=== PATIENT | female | born 1945 | race Caucasian/White ===

== ENCOUNTER 2023-11-03 11:40 | Emergency (ER) | payer OTHER ==
--- OUTSIDE RECORDS SUMMARY | 2023-11-03 11:45 | XMS REPORT | Continuity of Care Document ---
Author Name Unknown Address [address] [facility] [address] [place] [address] [facility] Address [address] [facility] 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 Name Role Phone JERMAN LEUNG Primary Care Physician UnavailKALI Joel Attending Clinician UnavailKALI Joel Attending Clinician UnavailKali Joel DO Attending Clinician [phone] Therapist, Adc Respiratory Attending Clinician U navailable Doctor Unassigned, [place] Attending Clinician U navailable RADIOLOGY Attending Clinician Unavailable Radiology Attending Clinician Unavailable Rut Jimenez Cardiology Attending Clinician Unavailable Jj Patel Attending Clinician Unavailable KALI OMRGAN Admitting Clinician Unavailable JERMAN LEUNG Admitting Clinician Unavailable Jerman Leung Admitting Clinician Unavailable Jose Mark Admitting Clinician Unavailable Jj Patel Admitting Clinician Unavailable Payers Payer Name Policy Type Policy Number Effective Date Expirati on Date Source [facility] DUAL COMP HMO D SNP [id number] 2022 00:00:00 [employer] [place] [id number] 2023 00:00:00 Allergies, Adverse Reactions, Alerts Allergy Name Allergy Type Status Severity Reaction(s) Onset Date Inactive Date Treating Clinician Comments Source IODINE DRUG INGREDI Active Swelling 06-28 00:00: 00 [facility] Iodine Propensi ty to adverse reaction s Active Swelling 06-28 00:00: 00 [facility] iodine DA Active SV SWELLING 2022-04 00:00: 00 [facility] iodine DA Active SV SWELLING 2021-04 00:00: 00 [facility] NO KNOWN ALLERGIE S Drug Class Active [facility] Social History Social Habit Start Date Stop Date Quantity Comments [facility] at 1945 00:[facility]00 1945 00:00:00 [facility] Smoking Status Start Date Stop Date Source Tobacco smoking consumption unknown [facility] Medications Ordered Medication Name Filled Medication Name Start Date Stop Date Current Medication? Ordering Clinician Indication Dosage Frequency Signature (SIG) Comments Components Source albuterol 90 mcg/actuati on inhaler 10-12 08:57: 14 Yes 2{puff} Inhale 2 Puffs every 6 (six) hours as needed for Wheezing or Shortness of Breath. [facility] diphenhydrA MINE (BENADRYL ALLERGY) 25 mg tablet 10-12 08:57: 14 Yes 25mg Take 1 tablet by mouth every 4 (four) hours as needed for Allergies. [facility] fluticasone propionate (ALLERGY RELIEF, FLUTICASONE ,) 50 mcg/actuati on nasal spray 10-12 08:57: 14 Yes Use in each nostril daily. [facility] tiotropium- olodateroL (STIOLTO RESPIMAT) 2.5-2.5 mcg/actuati on Mist 10-12 00:00: 00 Yes [id number] 2{puff} Inhale 2 Puffs in the morning. [facility] albuterol 90 mcg/actuati on inhaler 06-28 09:33: 15 Yes 2{puff} Inhale 2 Puffs every 6 (six) hours as needed for Wheezing or Shortness of Breath. [facility] diphenhydrA MINE (BENADRYL ALLERGY) 25 mg tablet 06-28 09:33: 15 Yes 25mg Take 1 tablet by mouth every 4 (four) hours as needed for Allergies. [facility] fluticasone propionate (ALLERGY RELIEF, FLUTICASONE ,) 50 mcg/actuati on nasal spray 06-28 09:33: 15 Yes Use in each nostril daily. [facility] HYDROcodone -acetaminop hen 10-325 mg tablet 06-24 00:00: 00 Yes TAKE 1 TABLET BY MOUTH EVERY 6 HOURS NEEDED FOR 28 DAYS [facility] gabapentin 800 mg tablet 06-18 00:00: 00 Yes 800mg Take 1 tablet by mouth in the morning and 1 tablet at noon and 1 tablet in the evening. [facility] clopidogreL 75 mg tablet 06-03 00:00: 00 Yes [facility] rosuvastati n 10 mg tablet 06-03 00:00: 00 Yes [facility] nitroglycer in 0.4 mg sublingual tablet 06-02 00:00: 00 Yes DIRECTED SUBLINGUAL ONCE A DAY 30 DAYS [facility] montelukast 10 mg tablet 06-01 00:00: 00 Yes [facility] WIXELA INHUB 500-50 mcg/dose inhalation disk 05-25 00:00: 00 Yes [facility] pantoprazol e 40 mg EC tablet 05-25 00:00: 00 Yes [facility] LINZESS 145 mcg capsule 05-25 00:00: 00 Yes [facility] SPIRIVA RESPIMAT 2.5 mcg/actuati on Mist 2022-04 00:00: 00 Yes [facility] Vital Signs Vital Name Observation Time Observation Value Comments Jeff acostakade Systolic blood pressure 2023-10-13 14:36:00 143 mm[Hg] [facility] Diastolic blood pressure 2023-10-13 14:36:00 63 mm[Hg] [facility] Heart rate 2023-10-13 14:36:00 94 /min Unive [facility] Oxygen saturation in Arterial blood by Pulse oximetry 2023-10-13 14:36:00 100 /min [facility] Respiratory rate 2023-10-13 14:33:00 18 /min [facility] Body height 2023-10-13 14:33:00 167.6 cm [facility] Body weight 2023-10-13 14:33:00 55.792 kg [facility] BMI 2023-10-13 14:33:00 19.85 kg/m2 [facility] Systolic blood pressure 2023-06-29 15:38:00 135 mm[Hg] [facility] Diastolic blood pressure 2023-06-29 15:38:00 78 mm[Hg] [facility] Heart rate 2023-06-29 15:38:00 84 /min Unive [facility] Body height 2023-06-29 15:38:00 167.6 cm [facility] Body weight 2023-06-29 15:38:00 62.642 kg [facility] BMI 2023-06-29 15:38:00 22.29 kg/m2 [facility] Oxygen saturation in Arterial blood by Pulse oximetry 2023-06-29 15:38:00 93 /min [facility] Procedures Procedure Date / Time Performed Performing Clinicia n Source EXTERNAL PROVIDER - ADC REFERRAL 2023-06-01 06:01:00 Doctor Unassigned, [place] [facility] Encounters Start Date/Time End Date/Time Encounter Type Admission Type Attending Clinicians Care Facility Care Department Encounter ID Source 2024-01-12 10:30:00 2024-01-12 10:30:00 Outpatient R KALI MORGAN SHIWAN [facility] [id number] [facility] 2023-10-13 09:30:00 2023-10-13 10:00:00 Office Visit Kali Morgan [facility] [id number] 350.1.13.10 [id number] [id number] [facility] 2023-10-13 09:30:00 2023-10-13 09:30:00 Outpatient R KALI MORGAN SHINHGanesh [facility] [id number] [facility] 2023-09-29 09:30:00 2023-09-29 09:30:00 Outpatient R KALI MORGAN SHINHGanesh [facility] [id number] [facility] 2023-08-25 00:00:00 2023-08-25 00:00:00 Telephone Kali Morgan [facility] 1..840.114 350.1.13.10 4.2.7.2.686 [id number] [facility] 2023-08-13 09:30:00 2023-08-13 11:00:00 Associate Agent Insurance Sales Visit Therapist, Adc [facility] 1..840.114 350.1.13.10 4.2.7.2.686 [id number] [facility] 2023-08-13 09:30:00 2023-08-13 09:30:00 Outpatient R KALI MORGAN SHINHGanesh [facility] [id number] [facility] 2023-08-03 08:27:47 2023-08-03 23:59:00 Outpatient R KALI MORGAN SHIWAN [facility] [id number] [facility] 2023-08-03 08:27:47 2023-08-03 23:59:00 Hospital Encounter Kali Morgan [facility] 1..840.114 350.1.13.10 4.2.7.2.686 [id number] [facility] 2023-06-29 09:30:00 2023-06-29 09:59:31 [facility] [id number] [facility] 2023-06-29 09:30:00 2023-06-29 09:59:31 Office Visit Lalo [facility] 1.2.840.114 350.1.13.10 4.2.7.2.686 [id number] [facility] 2023-06-01 00:00:00 2023-06-01 00:00:00 Orders Only Doctor Unassigned, [place] [facility] 1.2.840.114 350.1.13.10 4.2.7.2.686 [id number] [facility] 2023-05-04 09:42:00 2023-05-04 23:59:00 Outpatient R RADIOLOGY [facility] [id number] [facility] 2023-05-04 09:42:00 2023-05-04 23:59:00 Hospital Encounter Radiology [facility] 1.2.840.114 350.1.13.10 4.2.7.2.686 [id number] [facility] 2023-04-28 00:00:00 2023-04-28 00:00:00 Outpatient R RADIOLOGY [facility] [id number] [facility] 2023-04-02 08:57:52 2023-04-02 23:59:00 Hospital Encounter Radiology [facility] 1.2.840.114 350.1.13.10 4.2.7.2.686 [id number] [facility] 2023-04-02 00:00:00 2023-04-02 23:59:00 Outpatient R RADIOLOGY [facility] [id number] [facility] 2023-02-14 05:40:00 2023-02-14 05:40:00 Outpatient Rut Roberto [facility] [id number] [facility] 2022-06-21 06:43:00 2022-06-22 14:24:00 Inpatient Rut Roberto [facility] [id number] [facility] 2022-02-15 06:09:00 2022-02-16 14:00:00 Inpatient Jj Sheehan [facility] [id number] [facility] Results Test Description Test Time Test Comments Results Result Co mments Source PROTHROMBIN [id number] 06:50:00* Test Item Value Reference Range Interpretation Comme nts PT PATIENT (test code = PTP) 9.9 SECONDS 9.3-12.9 N INTERNATIONAL NORMAL RATIO (test code = INR) 0.89 INR Unit 0.8-1.2 N TARGET INR BY INDICATION Indication INR1. Prophylaxis of venous thrombosis 2.0 - 3.0 (orthopedic surgery), Prophylaxis of venous thrombosis (other than high-risk surgery), Treatment of Deep Vein Thrombosis/Pulmonary Embolism, Prevention of systemic embolism - Tissue heart valves, Acute Myocardial Infarction (to prevent systemic embolism), Valvular heart disease, Acute Myocardial Infarction (to prevent systemic embolism), Valvular heart disease, Atrial Fibrillation, Bileaflet mechanical valve in aortic position.2. Mechanical prosthetic valves (high risk), 2.5 - 3.5 Presence of Lupus Anticoagulant or Antiphospholipid Antibodies, Prevention of systemic embolism - Acute Myocardial Infarction (to prevent recurrent infarct). THROMBOPLASTIN TIME [id number] 06:50:00* Test Item Value Reference Range Interpretation Comme nts THROMBOPLASTIN TIME PARTIAL (test code = PTT) 34.7 SECONDS 26-35 N COMPREHENSIVE METABOLIC [id number] 06:48:00* Test Item Value Reference Range Interpretation Comme nts SODIUM (test code = NA) 141 mmol/L 134-147 N POTASSIUM (test code = K) 3.9 mmol/L 3.4-5.0 N CHLORIDE (test code = CL) 107 mmol/L 100-108 N CARBON DIOXIDE (test code = CO2) 34 mmol/L 21-32 H ANION GAP (test code = GAP) 0.0 GAP calc 4.0-15.0 L GLUCOSE (test code = GLU) 113 MG/DL 70-110 H BLOOD UREA NITROGEN (test code = BUN) 26 MG/DL 7-18 H GLOMERULAR FILTRATION RATE (test code = GFR) 58 estGFR >60 L The Glomerular Filtration Rate is a calculated parameterbased on serum Creatinine, patient age and sex. GFR valuesless than 60 mL/min/1.73 square meters are indicative ofChronic Kidney Disease. Values less than 15 mL/min/1.73square meters indicate Kidney failure. The calculation forGFR is based on the CKD-EPI (2020) calculation. This formulais race indifferent and is the recommended formula for GFRby the National Kidney Foundation for Adults.The GFR will not calculate if the sex is unknown or if thepatient's age is <18 years. CREATININE (test code = CREAT) 1.0 MG/DL 0.6-1.0 N TOTAL PROTEIN (test code = PROT) 7.5 G/DL 6.4-8.2 N ALBUMIN (test code = ALB) 3.8 G/DL 3.4-5.0 N GLOBULIN (test code = GLOB) 3.7 GM/dL ALBUMIN/GLOBULIN RATIO (test code = A/G) 1.0 RATIO 1.2-2.2 L CALCIUM (test code = CA) 9.5 MG/DL 8.5-10.1 N BILIRUBIN TOTAL (test code = BILT) 0.50 MG/DL 0.2-1.2 N SGOT/AST (test code = AST) 12 Unit/L 15-37 L SGPT/ALT (test code = ALT) 16 Unit/L 12-78 N ALKALINE PHOSPHATASE TOTAL (test code = ALKP) 59 Unit/L 45-117 N LIPID PROFILE (CORONARY RISK)2023-02-14 06:48:00* Test Item Value Reference Range Interpretation Comme nts TRIGLYCERIDES (test code = TRIG) 140 MG/DL 0-150 N CHOLESTEROL (test code = CHOL) 129 MG/DL 133-200 L CHOLESTEROL/HDL RATIO (test code = CHOLHDL) 2.30 RATIO See_Comment RISK ASSOCIATED WITH CHOL/HDL RATIOS: RISK MALE FEMALE1/2 AVERAGE 3.43 3.27AVERAGE 4.97 4.442X AVERAGE 9.55 7.053X AVERAGE 23.39 11.04 NOTE THAT THE REFERENCE VALUE IS RELATED TO RISK LEVELS ASRECOMMENDED BY THE NATIONAL HEART, L[facility]G, AND BLOOD INSTITUTE. [Automated message] The system which generated this result transmitted reference range: 0-. The reference range was not used to interpret this result as normal/abnormal. HDL CHOLESTEROL (test code = HDL) 56 MG/DL 40-59 N NON-HDL CHOLESTEROL (test code = NHDL) 73 mg/dL <130 LIPOPROTEIN LDL (test code = LDL) 49 MG/DL 0-129 N <100 [id number] 0 - 129 NEAR OPTIMAL/ABOVE [id number] - 159 [id number] - 189 HIGH>OR= 190 VERY HIGHNOTE THAT GUIDELINES ARE PROVIDED BY NATIONAL CHOLESTEROLEDUCATION PROGRAM ADULT TREATMENT PANEL III LDL/HDL (test code = LDL/HDL) 0.87 Ratio See_Comment L [Automated messa ge] The system which generated this result transmitted reference range: 1.48-3.22 Avg. The reference range was not used to interpret this result as normal/abnormal. [id number] 06:48:00* Test Item Value Reference Range Interpretation Comme nts MAGNESIUM (test code = MAG) 2.2 MG/DL 1.8-2.4 N CBC W/AUTO [id number] 06:31:00* Test Item Value Reference Range Interpretation Comme nts WHITE BLOOD CELL (test code = WBC) 6.5 K/mm3 3.5-11.0 N RED BLOOD CELL (test code = RBC) 5.01 M/mm3 4.70-6.10 N HEMOGLOBIN (test code = HGB) 15.8 G/DL 10.4-14.9 H HEMATOCRIT (test code = HCT) 49.1 % 31.5-44.1 H MEAN CELL VOLUME (test code = MCV) 98.0 Fl 84.5-98.6 N MEAN CELL HGB (test code = MCH) 31.5 pg 27.0-34.2 N MEAN CELL HGB CONCETRATION (test code = MCHC) 32.2 G/DL 31.5-34.0 N RED CELL DISTRIBUTION WIDTH (test code = RDW) 14.1 SD 11.5-14.5 N PLATELET COUNT (test code = PLT) 209 K/mm3 150-450 N MEAN PLATELET VOLUME (test c ode = MPV) 10.10 fL 7.0-10.5 N NEUTROPHIL % (test code = NT%) 58.2 % 40-76 N IMMATURE GRANULOCYTE % (test code = IG%) 0.3 % 0.0-5.0 N LYMPHOCYTE % (test code = LY%) 28.2 % 20.5-51.1 N MONOCYTE % (test code = MO%) 10.2 % 1.7-9.3 H EOSINOPHIL % (test code = EO%) 2.0 % 0.0-6.0 N BASOPHIL % (test code = BA%) 1.1 % 0.0-2.0 N NUCLEATED RBC % (test code = NRBC%) 0.0 /100WBC% 0.0-1.0 N NEUTROPHIL # (test code = NT#) 3.8 K/mm3 1.8-7.6 N IMMATURE GRANULOCYTE # (test code = IG#) 0.02 x10 3/uL 0.00-0.03 N LYMPHOCYTE # (test code = LY#) 1.8 K/mm3 0.6-3.2 N MONOCYTE # (test code = MO#) 0.7 K/mm3 0.3-1.1 N EOSINOPHIL # (test code = EO#) 0.1 K/mm3 0.0-0.4 N BASOPHIL # (test code = BA#) 0.1 K/mm3 0.0-0.1 N NUCLEATED RBC # (test code = NRBC#) 0.0 K/mm3 0.0-0.1 N MANUAL DIFF REQUIRED (test c ode = MDIFF) NO DIFF/SCN CRITERIA BASIC METABOLIC [id number] 05:02:00* Test Item Value Reference Range Interpretation Comme nts SODIUM (test code = NA) 141 mmol/L 134-147 N POTASSIUM (test code = K) 4.4 mmol/L 3.4-5.0 N CHLORIDE (test code = CL) 110 mmol/L 100-108 H CARBON DIOXIDE (test code = CO2) 28 mmol/L 21-32 N ANION GAP (test code = GAP) 3.0 GAP calc 4.0-15.0 L GLUCOSE (test code = GLU) 133 MG/DL 70-110 H BLOOD UREA NITROGEN (test code = BUN) 32 MG/DL 7-18 H GLOMERULAR FILTRATION RATE (test code = GFR) >=60 max estimate estGFR >60 The Glomerular Filtration Rate is a calculated parameterbased on serum Creatinine, patient age and sex. GFR valuesless than 60 mL/min/1.73 square meters are indicative ofChronic Kidney Disease. Values less than 15 mL/min/1.73square meters indicate Kidney failure. The calculation forGFR is based on the CKD-EPI (202) calculation. This formulais race indifferent and is the recommended formula for GFRby the National Kidney Foundation for Adults.The GFR will not calculate if the sex is unknown or if thepatient's age is <18 years. CREATININE (test code = CREAT) 0.8 MG/DL 0.6-1.0 N CALCIUM (test code = CA) 8.8 MG/DL 8.5-10.1 N CBC W/AUTO [id number] 04:52:00* Test Item Value Reference Range Interpretation Comme nts WHITE BLOOD CELL (test code = WBC) 14.4 K/mm3 3.5-11.0 H RED BLOOD CELL (test code = RBC) 4.28 M/mm3 4.70-6.10 L HEMOGLOBIN (test code = HGB) 13.3 G/DL 10.4-14.9 N HEMATOCRIT (test code = HCT) 40.5 % 31.5-44.1 N MEAN CELL VOLUME (test code = MCV) 94.6 Fl 84.5-98.6 N MEAN CELL HGB (test code = MCH) 31.1 pg 27.0-34.2 N MEAN CELL HGB CONCETRATION (test code = MCHC) 32.8 G/DL 31.5-34.0 N RED CELL DISTRIBUTION WIDTH (test code = RDW) 13.3 SD 11.5-14.5 N PLATELET COUNT (test code = PLT) 196 K/mm3 150-450 N MEAN PLATELET VOLUME (test c ode = MPV) 9.80 fL 7.0-10.5 N NEUTROPHIL % (test code = NT%) 83.6 % 40-76 H IMMATURE GRANULOCYTE % (test code = IG%) 0.4 % 0.0-5.0 N LYMPHOCYTE % (test code = LY%) 9.1 % 20.5-51.1 L MONOCYTE % (test code = MO%) 6.8 % 1.7-9.3 N EOSINOPHIL % (test code = EO%) 0.0 % 0.0-6.0 N BASOPHIL % (test code = BA%) 0.1 % 0.0-2.0 N NUCLEATED RBC % (test code = NRBC%) 0.0 /100WBC% 0.0-1.0 N NEUTROPHIL # (test code = NT#) 12.0 K/mm3 1.8-7.6 H IMMATURE GRANULOCYTE # (test code = IG#) 0.06 x10 3/uL 0.00-0.03 H LYMPHOCYTE # (test code = LY#) 1.3 K/mm3 0.6-3.2 N MONOCYTE # (test code = MO#) 1.0 K/mm3 0.3-1.1 N EOSINOPHIL # (test code = EO#) 0.0 K/mm3 0.0-0.4 N BASOPHIL # (test code = BA#) 0.0 K/mm3 0.0-0.1 N NUCLEATED RBC # (test code = NRBC#) 0.0 K/mm3 0.0-0.1 N MANUAL DIFF REQUIRED (test c ode = MDIFF) NO DIFF/SCN CRITERIA COAGULATION TIME [id number] 12:18:00* Test Item Value Reference Range Interpretation Comme nts COAGULATION TIME ACTIVATED ( test code = ACT) 288 SECistat 74-125 H CBC W/AUTO [id number] 08:32:00* Test Item Value Reference Range Interpretation Comme nts WHITE BLOOD CELL (test code = WBC) 6.3 K/mm3 3.5-11.0 N RED BLOOD CELL (test code = RBC) 5.02 M/mm3 4.70-6.10 N HEMOGLOBIN (test code = HGB) 15.7 G/DL 10.4-14.9 H HEMATOCRIT (test code = HCT) 49.9 % 31.5-44.1 H MEAN CELL VOLUME (test code = MCV) 99.4 Fl 84.5-98.6 H MEAN CELL HGB (test code = MCH) 31.3 pg 27.0-34.2 N MEAN CELL HGB CONCETRATION (test code = MCHC) 31.5 G/DL 31.5-34.0 N RED CELL DISTRIBUTION WIDTH (test code = RDW) 13.4 SD 11.5-14.5 N PLATELET COUNT (test code = PLT) 218 K/mm3 150-450 N MEAN PLATELET VOLUME (test c ode = MPV) 9.70 fL 7.0-10.5 N NEUTROPHIL % (test code = NT%) 56.2 % 40-76 N IMMATURE GRANULOCYTE % (test code = IG%) 0.3 % 0.0-5.0 N LYMPHOCYTE % (test code = LY%) 29.9 % 20.5-51.1 N MONOCYTE % (test code = MO%) 10.8 % 1.7-9.3 H EOSINOPHIL % (test code = EO%) 1.8 % 0.0-6.0 N BASOPHIL % (test code = BA%) 1.0 % 0.0-2.0 N NUCLEATED RBC % (test code = NRBC%) 0.0 /100WBC% 0.0-1.0 N NEUTROPHIL # (test code = NT#) 3.5 K/mm3 1.8-7.6 N IMMATURE GRANULOCYTE # (test code = IG#) 0.02 x10 3/uL 0.00-0.03 N LYMPHOCYTE # (test code = LY#) 1.9 K/mm3 0.6-3.2 N MONOCYTE # (test code = MO#) 0.7 K/mm3 0.3-1.1 N EOSINOPHIL # (test code = EO#) 0.1 K/mm3 0.0-0.4 N BASOPHIL # (test code = BA#) 0.1 K/mm3 0.0-0.1 N NUCLEATED RBC # (test code = NRBC#) 0.0 K/mm3 0.0-0.1 N MANUAL DIFF REQUIRED (test c ode = MDIFF) NO DIFF/SCN CRITERIA LIPID PROFILE (CORONARY RISK)2022-06-21 08:11:00* Test Item Value Reference Range Interpretation Comme nts TRIGLYCERIDES (test code = TRIG) 74 MG/DL 0-150 N CHOLESTEROL (test code = CHOL) 150 MG/DL 133-200 N CHOLESTEROL/HDL RATIO (test code = CHOLHDL) 1.74 RATIO See_Comment RISK ASSOCIATED WITH CHOL/HDL RATIOS: RISK MALE FEMALE1/2 AVERAGE 3.43 3.27AVERAGE 4.97 4.442X AVERAGE 9.55 7.053X AVERAGE 23.39 11.04 NOTE THAT THE REFERENCE VALUE IS RELATED TO RISK LEVELS ASRECOMMENDED BY THE NATIONAL HEART, LUNG, AND BLOOD INSTITUTE. [Automated message] The system which generated this result transmitted reference range: 0-. The reference range was not used to interpret this result as normal/abnormal. HDL CHOLESTEROL (test code = HDL) 86 MG/DL 40-59 H NON-HDL CHOLESTEROL (test code = NHDL) 64 mg/dL <130 LIPOPROTEIN LDL (test code = LDL) 57 MG/DL 0-129 N <100 [id number] 0 - 129 NEAR OPTIMAL/ABOVE [id number] - 159 [id number] - 189 HIGH>OR= 190 VERY HIGHNOTE THAT GUIDELINES ARE PROVIDED BY NATIONAL CHOLESTEROLEDUCATION PROGRAM ADULT TREATMENT PANEL III LDL/HDL (test code = LDL/HDL) 0.66 Ratio See_Comment L [Automated Pix4Da ge] The system which generated this result transmitted reference range: 1.48-3.22 Avg. The reference range was not used to interpret this result as normal/abnormal. [id number] 08:11:00* Test Item Value Reference Range Interpretation Comme nts MAGNESIUM (test code = MAG) 2.1 MG/DL 1.8-2.4 N COVID 19 INHOUSE [id number] 08:11:00* Test Item Value Reference Range Interpretation Comme nts COVID 19 INHOUSE AG (test code = [id number]) NEGATIVE Negative Per customer logistics manager , negative results should be treated aspresumptive and, if inconsistent with clinical signs andsymptoms or necessary for patient management, should betested with an alternative molecular assay. Negative resultsdo not preclude SARS-CoV-2 infection and should not be usedas the sole basis for patient management decisions. Negative results should be considered in the context of apatient's recent exposures, history, presence of clinicalsigns and symptoms consistent with COVID-19. COMPREHENSIVE METABOLIC [id number] 08:11:00* Test Item Value Reference Range Interpretation Comme nts SODIUM (test code = NA) 142 mmol/L 134-147 N POTASSIUM (test code = K) 3.4 mmol/L 3.4-5.0 N CHLORIDE (test code = CL) 107 mmol/L 100-108 N CARBON DIOXIDE (test code = CO2) 33 mmol/L 21-32 H ANION GAP (test code = GAP) 2.0 GAP calc 4.0-15.0 L GLUCOSE (test code = GLU) 106 MG/DL 70-110 N BLOOD UREA NITROGEN (test code = BUN) 34 MG/DL 7-18 H GLOMERULAR FILTRATION RATE (test code = GFR) >=60 max estimate estGFR >60 The Glomerular Filtration Rate is a calculated parameterbased on serum Creatinine, patient age and sex. GFR valuesless than 60 mL/min/1.73 square meters are indicative ofChronic Kidney Disease. Values less than 15 mL/min/1.73square meters indicate Kidney failure. The calculation forGFR is based on the CKD-EPI (202) calculation. This formulais race indifferent and is the recommended formula for GFRby the National Kidney Foundation for Adults.The GFR will not calculate if the sex is unknown or if thepatient's age is <18 years. CREATININE (test code = CREAT) 0.9 MG/DL 0.6-1.0 N TOTAL PROTEIN (test code = PROT) 7.5 G/DL 6.4-8.2 N ALBUMIN (test code = ALB) 3.9 G/DL 3.4-5.0 N GLOBULIN (test code = GLOB) 3.6 GM/dL ALBUMIN/GLOBULIN RATIO (test code = A/G) 1.1 RATIO 1.2-2.2 L CALCIUM (test code = CA) 9.1 MG/DL 8.5-10.1 N BILIRUBIN TOTAL (test code = BILT) 0.40 MG/DL 0.2-1.2 N SGOT/AST (test code = AST) 17 Unit/L 15-37 N SGPT/ALT (test code = ALT) 18 Unit/L 12-78 N ALKALINE PHOSPHATASE TOTAL (test code = ALKP) 75 Unit/L 45-117 N PROTHROMBIN [id number] 07:56:00* Test Item Value Reference Range Interpretation Comme nts PT PATIENT (test code = PTP) 9.6 SECONDS 9.3-12.9 N INTERNATIONAL NORMAL RATIO (test code = INR) 0.87 INR Unit 0.8-1.2 N TARGET INR BY INDICATION Indication INR1. Prophylaxis of venous thrombosis 2.0 - 3.0 (orthopedic surgery), Prophylaxis of venous thrombosis (other than high-risk surgery), Treatment of Deep Vein Thrombosis/Pulmonary Embolism, Prevention of systemic embolism - Tissue heart valves, Acute Myocardial Infarction (to prevent systemic embolism), Valvular heart disease, Acute Myocardial Infarction (to prevent systemic embolism), Valvular heart disease, Atrial Fibrillation, Bileaflet mechanical valve in aortic position.2. Mechanical prosthetic valves (high risk), 2.5 - 3.5 Presence of Lupus Anticoagulant or Antiphospholipid Antibodies, Prevention of systemic embolism - Acute Myocardial Infarction (to prevent recurrent infarct). THROMBOPLASTIN TIME [id number] 07:56:00* Test Item Value Reference Range Interpretation Comme nts THROMBOPLASTIN TIME PARTIAL (test code = PTT) 30.6 SECONDS 26-35 N BASIC METABOLIC [id number] 05:22:00* Test Item Value Reference Range Interpretation Comme nts SODIUM (test code = NA) 137 MMOL/L 137-145 N POTASSIUM (test code = K) 4.1 MMOL/L 3.5-5.1 N CHLORIDE (test code = CL) 109 MMOL/L 98-107 H CARBON DIOXIDE (test code = CO2) 25 MMOL/L 22-30 ANION GAP (test code = GAP) 7 MMOL/L 14-24 L GLUCOSE (test code = GLU) 107 MG/DL 74-106 H BLOOD UREA NITROGEN (test code = BUN) 26 MG/DL 7-17 H GLOMERULAR FILTRATION RATE (test code = GFR) > 60 Reporting units: ml/min/1.73 m2 (Modified MDRD Formula)Reference Range: > or = 60 ml/min/1.73 m2 CREATININE (test code = CREAT) 0.70 MG/DL 0.52-1.04 N CALCIUM (test code = CA) 8.2 MG/DL 8.4-10.2 L CBC W/AUTO [id number] 04:50:00* Test Item Value Reference Range Interpretation Comme nts WHITE BLOOD CELL (test code = WBC) 12.8 K/MM3 3.8-9.8 H RED BLOOD CELL (test code = RBC) 4.04 M/MM3 3.58-4.97 N HEMOGLOBIN (test code = HGB) 12.8 G/DL 11.2-14.9 N HEMATOCRIT (test code = HCT) 38.8 % 33.2-43.5 N MEAN CELL VOLUME (test code = MCV) 96 fL 80.7-99.1 N MEAN CELL HGB (test code = MCH) 31.7 pg 27.0-34.1 N MEAN CELL HGB CONCETRATION (test code = MCHC) 33.0 % 32.2-35.7 N RED CELL DISTRIBUTION WIDTH (test code = RDW) 13.0 % 12.1-15.2 N PLATELET COUNT (test code = PLT) 173 K/MM3 129-368 N MEAN PLATELET VOLUME (test c ode = MPV) 10.5 fl 7.4-10.4 H NEUTROPHIL % (test code = NT%) 85.7 % 43-75 H IMMATURE GRANULOCYTE % (test code = IG%) 0.3 % 0.0-2.0 N LYMPHOCYTE % (test code = LY%) 8.8 % 14-44 L MONOCYTE % (test code = MO%) 5.0 % 4-13 N EOSINOPHIL % (test code = EO%) 0.0 % 0-6 N BASOPHIL % (test code = BA%) 0.2 % 0-2 N NUCLEATED RBC % (test code = NRBC%) 0.0 % 0-1.0 N NEUTROPHIL # (test code = NT#) 10.98 K/mm3 2.0-7.6 H IMMATURE GRANULOCYTE # (test code = IG#) 0.04 x10 3/uL 0-0.03 H LYMPHOCYTE # (test code = LY#) 1.13 K/mm3 1.0-3.8 N MONOCYTE # (test code = MO#) 0.64 K/mm3 0.1-0.8 N EOSINOPHIL # (test code = EO#) 0.00 K/mm3 0.0-0.2 N BASOPHIL # (test code = BA#) 0.02 K/mm3 0.0-0.2 N NUCLEATED RBC # (test code = NRBC#) 0.00 K/mm3 0.0-0.1 N [id number] 11:48:00* Test Item Value Reference Range Interpretation Comme nts ACT-ISTAT (test code = ACTI) 289 SEC 74-137 H [id number] 08:36:00* Test Item Value Reference Range Interpretation Comme nts MAGNESIUM (test code = MAG) 1.7 MG/DL 1.6-2.3 N BASIC METABOLIC [id number] 08:36:00* Test Item Value Reference Range Interpretation Comme nts SODIUM (test code = NA) 140 MMOL/L 137-145 N POTASSIUM (test code = K) 3.6 MMOL/L 3.5-5.1 N CHLORIDE (test code = CL) 106 MMOL/L 98-107 N CARBON DIOXIDE (test code = CO2) 31 MMOL/L 22-30 H GLUCOSE (test code = GLU) 101 MG/DL 74-106 N BLOOD UREA NITROGEN (test code = BUN) 23 MG/DL 7-17 H GLOMERULAR FILTRATION RATE (test code = GFR) > 60 Reporting units: ml/min/1.73 m2 (Modified MDRD Formula)Reference Range: > or = 60 ml/min/1.73 m2 CREATININE (test code = CREAT) 0.80 MG/DL 0.52-1.04 N CALCIUM (test code = CA) 8.5 MG/DL 8.4-10.2 N LIPID PROFILE (CORONARY RISK)2022-02-15 08:36:00* Test Item Value Reference Range Interpretation Comme nts TRIGLYCERIDES (test code = TRIG) 68 MG/DL 150-199 L TRIGLYCERIDES REFERENCE RANGE:Normal: <150 mg/dLBorderline High: 150-199 mg/dLHigh: 200-499 mg/dLVery High: >=500 mg/dL CHOLESTEROL (test code = CHOL) 101 MG/DL <200 HDL CHOLESTEROL (test code = HDL) 50 MG/DL 40-59 N LIPOPROTEIN LDL (test code = LDL) 37 MG/DL 0-99 N OPTIMAL......... <100 mg/dLNEAR OPTIMAL/ABOVE OPTIMAL.........100-12 9 mg/dL BORDERLINE HIGH.........130-159 mg/dL HIGH.........160-189 mg/dL VERY HIGH.........>/= 190 mg/dL PROTHROMBIN [id number] 07:54:00* Test Item Value Reference Range Interpretation Comme [facility] PROTHROMBIN TIME PATIENT (test code = PTP) 10.5 SECONDS 9.4-12.7 N INTERNATIONAL NORMAL RATIO (test code = INR) 0.9 0.86-1.14 N The INR is to be used only for monitoring oral anticoagulanttherap y. INDICATION INR VALUE -------1. Prophylaxis, deep venous thrombosis, including high risk surgery. 2.0 - 3.0 2. Prophylaxis, deep venous thrombosis, hip surgery, treatment for deep venous thrombosis or pulmonary prevention of systemic embolism in patients with valvular heart disease, atrial fibrillation, tissue heart valve, or acute myocardial infarction. 2.0 - 3.0 3. Mechanical prosthesis heart valves, recurrent systemic embolism. 3.0 - 4.5 PTT [id number] 07:54:00* Test Item Value Reference Range Interpretation Comme nts PTT ACTIVATED (test code = APTT) 34.1 SECONDS 26.2-35.4 N CBC W/AUTO [id number] 07:36:00* Test Item Value Reference Range Interpretation Comme nts WHITE BLOOD CELL (test code = WBC) 5.2 K/MM3 3.8-9.8 N RED BLOOD CELL (test code = RBC) 4.17 M/MM3 3.58-4.97 N HEMOGLOBIN (test code = HGB) 13.1 G/DL 11.2-14.9 N HEMATOCRIT (test code = HCT) 40.8 % 33.2-43.5 N MEAN CELL VOLUME (test code = MCV) 98 fL 80.7-99.1 N MEAN CELL HGB (test code = MCH) 31.4 pg 27.0-34.1 N MEAN CELL HGB CONCETRATION (test code = MCHC) 32.1 % 32.2-35.7 L RED CELL DISTRIBUTION WIDTH (test code = RDW) 13.4 % 12.1-15.2 N PLATELET COUNT (test code = PLT) 169 K/MM3 129-368 N MEAN PLATELET VOLUME (test c ode = MPV) 9.9 fl 7.4-10.4 N NEUTROPHIL % (test code = NT%) 66.7 % 43-75 N IMMATURE GRANULOCYTE % (test code = IG%) 0.2 % 0.0-2.0 N LYMPHOCYTE % (test code = LY%) 23.2 % 14-44 N MONOCYTE % (test code = MO%) 7.7 % 4-13 N EOSINOPHIL % (test code = EO%) 1.4 % 0-6 N BASOPHIL % (test code = BA%) 0.8 % 0-2 N NUCLEATED RBC % (test code = NRBC%) 0.0 % 0-1.0 N NEUTROPHIL # (test code = NT#) 3.45 K/mm3 2.0-7.6 N IMMATURE GRANULOCYTE # (test code = IG#) 0.01 x10 3/uL 0-0.03 N LYMPHOCYTE # (test code = LY#) 1.20 K/mm3 1.0-3.8 N MONOCYTE # (test code = MO#) 0.40 K/mm3 0.1-0.8 N EOSINOPHIL # (test code = EO#) 0.07 K/mm3 0.0-0.2 N BASOPHIL # (test code = BA#) 0.04 K/mm3 0.0-0.2 N NUCLEATED RBC # (test code = NRBC#) 0.00 K/mm3 0.0-0.1 N COVID 19 Asymptomatic IH [id number] 05:47:00* Test Item Value Reference Range Interpretation Comme nts COVID 19 Asymptomatic IH AG (test code = COVNONPUIAG) NEGATIVE Negative "Negative result s from patients with symptom onset beyondfive days, should be treated as presumptive, andconfirmation with a molecular assay, if necessary forpatient management may be performed. Negative results do notrule out COVID-19 and should not be used as the sole basisfor treatment or patient management decisions, includinginfection control decisions. Negative results should beconsidered in the context of a patients recent exposures,history, and the presence of clinical signs and symptomsconsistent with COVID-19.This test detects both viable andnon-viable SARS-CoV and SARS CoV-2.Test performance dependson the amount of virus (antigen) in the sample." Notes Date/Time Note Provider Source 2023-10-13 09:30:00 2671-74-21P73:30:00A ddended by: KALI MORGAN DO on: 10/13/2023 10:11 AMModules accepted: Orders [id number] RodehfiaQN7307-28-57K38:11:00Addendum DocumentTXT1.2.840.654282.1.13.104.2.7.2.7 75308|[id number] for patient vxxa64508-3YxocKCPZJMRATLGQwwsexlgy C-CDA narrative text[address] Lr[id number] CRBYVWOKCYXNUFIP6317-77-60O68:11:001.2.840 .994139.1.72.3.15|1.2.840.780265.1.13.104. 2.7.2.727879_[id number] [facility] 2023-08-25 13:33:32 6340-57-23Q66:33:32F ormatting of this note might be different from the original.Images from the original note were not included.Patient notified of results. She verbalized understanding of results/recommendations via teach back. No further questions or concerns at this time.Kali Morgan DO P Pulmonary NursePlease let patient know PFT did show evidence of moderate COPD. Would continue with current plan of care. 37827-5Afaervizw encounter DcdaZE0774-87-22J88:34:00Telephone encounter NoteTXT1.2.840.918453.1.13.104.2.7.2.06407 9|[id number] for patient hchv72937-5SrcxCBEQPFUWTTGLdcjtpfsk C-CDA narrative textUT[address] Dt[id number] QCRNCNNBTPYEEGEI7576-26-19W20:34:001.2.840 .535435.1.72.3.15|1.2.840.639702.1.13.104. 2.7.2.727879_[id number] [facility] 2023-02-14 08:23:00 [id number] XvXj/82REyDrZJ/zPXsJmQ KuBDiEIgL0fWVwPXwtGVuWLO0df/q1Elwo5316-46- 21T08:23:174273-[address] [address] PATIENT NAME: CrowANGELICA CALDWELL ADMIT DATE: 02/14/23ACCOUNT NO: [id number] ROOM NO: AGE: 77 REPORT TYPE: CARDIAC CATHETERIZATION REPORT SEX: F ADMITTING PHYSICIAN: ATTENDING PHYSICIAN: Rut Jimenez MD PROCEDURE DATE: 02/14/2023 CARDIOVASCULAR PROCEDURE LABORER TANBARK: Rut Jimenez MD PREOPERATIVE DIAGNOSIS: POSTOPERATIVE DIAGNOSIS: SURGEON: Kenrick Jimenez MD HUMAN RESOURCES RECORDS CLERK: TITLE OF PROCEDURES:1. Abdominal and bilateral selective iliofemoral angiograms.2. First order angiogram of the left lower extremity.3. Third order angiogram of the right lower extremity.4. Laser atherectomy of the entire right SFA and popliteal.5. DCB of the entire popliteal and right SFA.6. Stenting of the proximal and mid SFA on the right.7. Stenting of the right common femoral.8. DCB of the entire right SFA.9. Sealing device on the left. INDICATION FOR THE PROCEDURE: Disabling claudication of the right lower extremity in a patient with known peripheral arterial disease and previous interventions. ESTIMATED BLOOD LOSS: Minimal. COMPLICATIONS: None. CONTRAST: 130 mL. ANESTHESIA: Conscious sedation with Versed and fentanyl, 1% lidocaine for localanesthesia. FINAL DIAGNOSES: Patent stent on the left SFA, occluded stent, and PCI area of the right SFA, right common femoral disease. The patient is now status post revascularization of the right lower extremity, the right common femoral, right SFA, and right popliteal. PATIENT NAME: ANGELICA ROY RECOMMENDATION AND PLAN OF TREATMENT: Observation for few hours and then medical therapy, risk factor modification. PROCEDURE IN DETAIL: After informed consent, the patient was brought to the cardiac catheterization lab in a stable fasting nonsedated state. She was prepped and draped in the usual sterile fashion. After conscious sedation, 1% lidocaine was administered to the left common femoral artery area for local anesthesia. A 6-Bahamian sheath was placed in the left common femoral artery using standard techniques and fluoroscopy. After heparinization, left lower extremity first order angiogram showed patent stent of the left SFA. There is a 45% left popliteal disease and diffuse distal small vessel disease with 3-vesselrunoff. Abdominal angiogram showed mild aortoiliac disease with 20% in the commons and 30% in the external iliacs. The right common femoral artery, there is a lesion around 75% that was done with selective angiogram, third order usingthe pigtail and the NaviCross catheter over the [place] Advantage wire. Then, theSFA is occluded at the ostium and there is minimal distal flow observed using the NaviCross and the [place] Advantage. I was able to cross the SFA completely and put the NaviCross at the popliteal and take angiograms, which showed 3-vessel runoff with small diffuse disease. Then, I exchanged the [place] Advantage with an [employer] wire of 0.018 and did laser atherectomy of the entire SFA and the right popliteal with the bTendo laser and then after that, atthe DCP with popliteal and distal SFA, with a [employer] IN.PACT 200 x 130 and then used the same balloon to predilate the proximal area of the SFA. Angiography showed significant disease at the common femoral and still haziness in the proximal SFA. So, I placed an EverFlex stent Protege 7 x 150 in the proximal SFA and then needed to cover the common femoral area, so I used a Visi-Pro 8 x 27, and those resulted in 0% residual in the common femoral and theSFA all the way down to the popliteal with 3-vessel runoff and normal flow. There was some shifting of the plaque to the ostium of the profunda, but there was normal CHRIS-3 flow in the profunda. The results were angiographically great. The patient tolerated the procedure well. The left groin was sealed using Angio-Seal. There were no complications. The patient was transferred back to the holding area for observation, to be discharged in few hours on medical therapy and risk factor modification. Dictated By: Rut Jimenez MD Date Dictated: 02/14/2023 08:23:27Date Transcribed: 02/14/2023 09:09:52SVENUS/NORRIS/RSHJob #: [id number] ID: [id number] by Rut Jimenez MD On 02/14/2023 01:05:22 PM at 0105 PATIENT NAME: ANGELICA ROY btsp5345-77-79L50:09:00L.[id number] VAvailable for patient rbrzZQCGTYNXRNJNFS9932-88-45Z12:05:53 [facility] 2023-02-14 06:07:00 [id number]+Xr7M 6mtXmC36vEB2170TwM9U8N 3KEkvAFimaGtS7kpvk5nT0eU96goG6qcMj5324-49- 21T06:07:079524-8632 [facility] [address] [place] [address] PATIENT NAME: ANGELICA ROY ADMIT DATE: 02/14/23ACCOUNT NO: [id number] ROOM NO: AGE: 77 REPORT TYPE: eELECTROCARDIOGRAM SEX: F ADMITTING PHYSICIAN: ATTENDING PHYSICIAN: Rut Jimenez MD Order:[id number] Reason : CAD [facility]06[facility] Pressure : / mmHGVent. Rate : 072 BPM Atrial Rate : 072 BPM P-R Int : 132 ms QRS Dur : 080 ms QT Int : 408 ms P-R-T Axes : 057 039 033 degrees QTc Int : 446 ms Normal sinus rhythmNormal ECGWhen compared with ECG of 21-JUN-2022 07:32,No significant change was foundConfirmed by RUT JIMENEZ ([id number]) on 02/14/2023 8:25:18 AM Referred By: Rut Jimenez Confirmed by:RUT JIMENEZ at 0825 PATIENT NAME: ANGELICA ROY .[id number] [id number] for patient rcskKXHZJRQAEKITJA7042-98-92W99:25:45 [facility] 2023-02-13 07:08:00 [id number] Rn3g2/pitCFNHH6Fm+87UL Mtu1ba2vjN+ovEUgZGj3criKP9i71d9HJi1002-19- 20T07:08:453906-7348 [facility] [address] [place] [id number] PATIENT NAME: ANGELICA ROY ADMIT DATE: 02/14/23ACCOUNT NO: [id number] ROOM NO: AGE: 77 REPORT TYPE: PREOP HP REPORT SEX: F ADMITTING PHYSICIAN: ATTENDING PHYSICIAN: Rut Jimenez MD Cardiology ADMISSION DATE: 02/14/2023 07:00:00 LABORER TANBARK: Rut Jimenez MD REASON FOR ADMISSION: Symptomatic peripheral arterial disease for angiography and possible revascularization. HISTORY OF PRESENT ILLNESS: Angelica is a 77-year-old lady with known atherosclerotic cardiovascular disease and multiple cardiovascular risk factors,who was last at [facility] on 06/21/2022. Please see last dictation for more details. The patient at that time underwent abdominal and bilateral selective iliofemoral angiograms, was found to have a patent stent of the left SFA and theright SFA was occluded. The patient underwent directional atherectomy, drug-coated balloon and SFA of part of the right SFA and complete revascularization of the right SFA. She had excellent angiographic results. She came back for evaluation in the office recently and her right ankle brachialindex remained low at 0.55. The left was 0.88. She is having more symptoms on the right than the left. Given that she is appearing to have worsening disease of the right leg that is symptomatic, she is here for further angiography and possible revascularization of the right lower extremity. The procedure will be carried out from the left groin. The patient has also been having some back problems and she has been scheduled for epidural procedures and had to be on andoff her antiplatelet therapy. The stent on the right SFA was 7 x 150 EverFlex and the balloon used was 6 x 200 DCB balloon. The patient's cardiac status has been stable. She had a right coronary artery stent on 02/23/2018. Her carotid Doppler last year showed less than 35% disease. Her echocardiogram showed normal ejection fraction, mild to moderate mitral regurgitation. Her nuclear stress test from 2021 was negative for ischemia. She has occasional supraventricular tachycardia runs on a Holter monitor. The patient continues tosmoke. She has been otherwise most of the time compliant with her medical therapy. She is here for angiography and possible revascularization of her right lower extremity. PAST MEDICAL HISTORY: Remarkable for the above in addition to hyperlipidemia, COPD, lumbar disk disease, lumbar radiculopathy, neuropathy, gastroesophageal reflux disease, gastroparesis, constipation, osteoarthritis, chronic sinusitis, anxiety, and allergies. PAST SURGICAL HISTORY: Right knee surgery, above-mentioned cardiovascular procedures and lumbar injections. ALLERGIES: SHE SAYS SHE IS ALLERGIC TO IODINE WHEN SHE WAS A CHILD. SHE HAS PATIENT NAME: ANGELICA ROY NOT HAD ANY PROBLEMS DURING HER PROCEDURES. MEDICATIONS: Aspirin 81 mg daily, clopidogrel 75 mg daily. She takes rosuvastatin 10 mg daily, inhalers, Protonix 40 mg daily. The rest of the medications are enclosed. SOCIAL HISTORY: The patient continues to smoke. There is no history of alcoholor street drug use. FAMILY HISTORY: Negative for premature atherosclerosis. REVIEW OF SYSTEMS: Enclosed, mainly related to back problems, cataracts, macular degeneration, dizziness, blurred vision, sinus problems, COPD symptoms, GI symptoms described above. No acute symptoms. No TIAs or strokes. She does have also anxiety. Rest of the review of systems is enclosed. PHYSICAL EXAMINATION:GENERAL: Reveals a pleasant elderly lady in no acute distress.VITAL SIGNS: Blood pressure 122/66, pulse 84 and regular, respiratory rate 16 and unlabored, temperature afebrile.HEENT: Head atraumatic, normocephalic.EYES AND ENT: Examination within normal for age.NECK: Supple, no jugular venous distention, bruits or lymphadenopathy. Normal upstroke.LUNGS: Decreased air entry, otherwise clear and resonant.HEART: Regular rate and rhythm, II/ systolic ejection murmur at the left lower sternal border. No gallops.ABDOMEN: Soft, no tenderness, no organomegaly, no masses or bruits.EXTREMITIES: 1+ pulses on the right, 2+ on the left. No cyanosis or clubbing. No edema.NEUROLOGIC: Alert and oriented x3. Examination appears to be nonfocal. LABORATORY DATA: Pending. Noninvasive cardiovascular workup enclosed. IMPRESSION: This is a 77-year-old lady with advanced peripheral vascular disease, status post previous revascularization procedure as detailed above. The patient is back with symptomatic right lower extremity claudications and at times rest pain. She has an abnormal ankle brachial index suggestive of recurrent disease. The patient is here for angiography and possible revascularization of her right lower extremity. The access will be from the left groin. Both legs will be checked. The risks and benefits of the planned procedures were discussed in detail with the patient and available family members and she is willing to proceed. Rest as per orders. Dictated By: Rut Jimenez MD Date Dictated: 02/13/2023 07:08:50Date Transcribed: 02/13/2023 09:47:58SFD/SREJob #: [id number] ID: [id number] by Rut Jimenez MD On 02/16/2023 06:21:44 PM PATIENT NAME: ANGELICA ROY at 0621 PATIENT NAME: ANGELICA ROY and physical wvbhiworrlr1662-84-39F46:47:00L.[id number] 3-0003AVAvailable for patient ojkvSMXMLNYORYOAGD2115-22-46I47:22:07 [facility] 2022-06-22 09:49:00 [id number] 1dDwSow38XKROvjW3bh9Pk auzaQQ6ihLcBhfH+F5mnMQ/EHAv8z5M/Po2068-03T09:49:00 [facility] ([facility] Discharge SummaryREPORT#:[id number] REPORT STATUS: SignedDATE:06/22/22 TIME:09 PATIENT: ANGELICA ROY UNIT #: [id number]#: [id number] [address] AGE: 77 SEX: F ATTEND: Rut Jimenez MD CardiologyADM AUTHOR: Noman Gonzalez MD * ALL edits or amendments must be made on the electronic/computer document * General InformationDischarge date: 06/22/22Discharge diagnosis:Severe symptomatic PADStatus post directional atherectomy of right SFAStatus post stenting right SFAGERDCADCOPDHospital course:Severe symptomatic PADStatus post directional atherectomy of right SFAStatus post stenting right SFAPain controlMonitor closely on telemetryContinue home medications and titrate as needed History of CADContinue home medicationsMonitor telemetry COPD no exacerbationBronchodilators as neededContinue home medications GERDContinue PPI Patient is being discharged home today in a stable condition with and advised tofollow-up with PCP in 1 week and also with cardiology in 1 to 2 weeks Med Rec Med RecDischarge meds:Continue taking these medications:LINACLOTIDE (LINZESS) 145 MCG CAP 145 MICROGRAM ORAL DAILY. GABAPENTIN (NEURONTIN) 800 MG TAB ALBUTEROL (PROAIR HFA 90 MCG/ACT 8.5 GM) 90 MCG INHALER 1 PUFF INHALATION RT - EVERY 6 HOURS. HYDROcodone/APAP (HYDROcodone/APAP 10/325) 10 MG-325 MG TAB ROSUVASTATIN (CRESTOR) 5 MG TAB 10 MILLIGRAM ORAL DAILY. FLUTICASONE PROPIONATE/SALMETEROL (ADVAIR DISKUS 500/50 MCG/ACT) 500 MCG-50 MCG/DOSE DISK.W.DEV 1 PUFF INHALATION RT - TWICE DAILY. METOCLOPRAMIDE (REGLAN) 5 MG TAB 5 MILLIGRAM ORAL BEFORE MEALS AND AT BEDTIME. TIOTROPIUM BROMIDE (SPIRIVA RESPIMAT 2.5 MCG/ACT) 2.5 MCG/ACTUATION INHALER 2 PUFF INHALATION RT - DAILY. CLOPIDOGREL (PLAVIX) 75 MG TAB 75 MILLIGRAM ORAL DAILY. Qty = 30 ASPIRIN (ASPIRIN) 81 MG TAB.CHEW 81 MILLIGRAM ORAL DAILY. Qty = 30 ObjectiveVS/I OLast Documented: Result Date Time Pulse Ox 92 06/22 111 B/P 149/65 06/22 111 B/P Mean 93.0 06/22 111 O2 Delivery Room air 06/22 111 Temp 98.1 06/22 111 Pulse 80 06/22 1116 Resp 14 06/22 111 FiO2 21 06/21 2153 Free Text Obj NotesFree Text Obj Notes:Physical ExamGeneral appearance: alert, awake, orientedHEENT : normocephalic ,AtraumaticEyes: Eyes normal inspection.ENT: Dry mucous membranes present.Neck: Normal inspection. Neck supple.CVS: Normal heart rate and rhythm. Heart sounds normal.Respiratory: No respiratory distress. Breath sounds normal.Abdomen: Soft and nontender.Genitourinary: no bladder distentionBack: Normal inspection.Skin: Skin warm. Normal skin color. No rash.Extremities: No lower extremity edema.Neuro: Oriented X 3. No motor deficitNo generalized lymph adenopathyPsych normal affect Discharge Instructions PCPDischarge to: Home/Self CareAdditional Discharge Routines: Attending Follow-UpDiet: CardiacDischarge management: greater than 30 mins Follow-up AppointmentsAttending Physician: Attending Physician: Rut Jimenez MD Cardiology at 2004 RPT #: [id number] OF REPORT DSDischarge fgxftst8415-03-10K01:49:00L.BWSH27853715-5 036AVAvailable for patient zyneOBXIGCRHRASZVR1605-16-97O84:04:50 [facility] 2022-06-21 18:08:00 [id number]+pDzil41 q5XG+EUz8xuwVo1ciJksFm KBFfyiju3Y9zv1K/gBnWmPA9q8CiawquhZ9679-44- 25T18:08:00 [facility] History PhysicalREPORT#:[id number] REPORT STATUS: SignedDATE:06/21/22 TIME:1807 PATIENT: ANGELICA ROY UNIT #: [id number]#: [id number] [address] AGE: 77 SEX: F ATTEND: Rut Jimenez MD CardiologyADM AUTHOR: Noman Gonzalez MD * ALL edits or amendments must be made on the electronic/computer document * History of Present Illness HPIChief complaint:PAD s/p C HPI:77 yo female with past medical history of severe bilateral symptomatic PAD hyperlipidemia, COPD, lumbar disc disease, lumbar radiculopathy, neuropathy and GERD who was admitted in [facility] for PAD and was found to have mild aortoiliac disease with 100% occlusion of both SFAs and three-vessel runoffbilaterally patient underwent l angiogram yesterday because of disabling claudication of the right lower extremity and had a directional atherectomy of right SFA and DCB of right SFA with stenting and was admitted for postoperative monitoring History Past Medical Surgical HxAdditional medical history:COPD, Neuropathy, GERD, PVD, CADsevere bilateral symptomatic PAD hyperlipidemia, COPD, lumbar disc disease, lumbar radiculopathy, neuropathy and GERD Additional surgical history:Cardiac cath Family HistoryFamily history:Reports: Hypertension. Additional family history:denies kidney problems Social HistorySmoking status for patients 13 years old or older: Current some day smokerDate last smoked: 06/19/22Packs per day: 0.5Years smoked: 54Pack years: 27.0Additional social history:denies drugs, denies alcohol Medication/Allergy-Vaccine HxMedications:Home Medications:LINACLOTIDE (LINZESS) 145 MCG PO DAILY GABAPENTIN (NEURONTIN) ALBUTEROL (PROAIR HFA 90 MCG/ACT 8.5 GM) 1 PUFF INH RTQ6H HYDROcodone/APAP (HYDROcodone/APAP 10/325) ROSUVASTATIN (CRESTOR) 10 MG PO DAILY FLUTICASONE PROPIONATE/SALMETEROL (ADVAIR DISKUS 500/50 MCG/ACT) 1 PUFF INH RTBID METOCLOPRAMIDE (REGLAN) 5 MG PO AC HS TIOTROPIUM BROMIDE (SPIRIVA RESPIMAT 2.5 MCG/ACT) 2 PUFF INH RTDAILY CLOPIDOGREL (PLAVIX) 75 MG PO DAILY ASPIRIN 81 MG PO DAILY Allergies:Coded Allergies:iodine (Severe, SWELLING 02/15/22) Review of Systems Free Text ROS NotesFree Text ROS Notes:Constitutional:Reports: generalized weakness. Skin:Denies: rash. Allergy/Immun:Denies: rhinorrhea, sneezing. Eyes:Denies: visual loss/blurred. ENT:Denies: earache, nasal congestion. Respiratory:Denies: non productive cough. Cardiovascular:Denies: chest pain, palpitations. GI:Denies: diarrhea, nausea. :Denies: dysuria. Musculoskeletal:Reports: arthritis. Denies: extremity pain. Heme:Denies: bleeding. Endocrine:Denies: polydipsia. Neuro:Reports: dizziness, gait problem, lightheaded, spinning sensation. Psych:Reports: anxiety. All systems rev neg: except as noted OBJECTIVEVS/I O:Vital Signs Date Temp Pulse Resp B/P B/P Mean Pulse Ox FiO2 06/21 97.0-97.9 72-79 14-28 134-167/61-74 93.6 89-100 Last Documented: Result Date Time Pulse Ox 95 06/21 164 B/P 143/69 06/21 164 B/P Mean 93.6 06/21 1644 O2 Delivery Room air 06/21 1643 Temp 97.9 06/21 164 Pulse 79 06/21 164 Resp 14 06/21 1643 Patient Weight and BMI Weight (kg): 63.600 BMI: 22.6 Medications:Active Meds + DC'd Last 24 HrsAspirin (ASPIRIN CHEWABLE) 81 MG DAILY PO Atorvastatin Calcium (LIPITOR) 20 MG BEDTIME PO Clopidogrel Bisulfate (Plavix) 75 MG DAILY PO Ondansetron HCl (ZOFRAN) 0 .STK-MED ONE .ROUTE (DC) Iopamidol (ISOVUE-300) 0 .STK-MED ONE .ROUTE (DC) Lidocaine HCl (lidocaine HCL) 0 .STK-MED ONE .ROUTE (DC) Clopidogrel Bisulfate (PLAVIX) 0 .STK-MED ONE .ROUTE (DC) Aspirin (ASPIRIN) 0 .STK-MED ONE .ROUTE (DC) Heparin Sodium (Porcine) (HEPARIN SODIUM) 0 .STK-MED ONE .ROUTE (DC) Fentanyl Citrate (SUBLIMAZE) 0 .STK-MED ONE .ROUTE (DC) Midazolam HCl (VERSED) 0 .STK-MED ONE .ROUTE (DC) Heparin Sodium (Porcine) (HEPARIN 1,000 UNITS/NS 500 ML) 1,500 ML .STK-MED ONE IV (DC) Iopamidol (ISOVUE-300) 0 .STK-MED ONE .ROUTE (DC) Lidocaine HCl (lidocaine HCL) 0 .STK-MED ONE .ROUTE (DC) Diazepam (VALIUM) 5 MG ONCE PO (DC) Diphenhydramine HCl (BENADRYL) 25 MG ONCE PO (DC) Famotidine (PEPCID) 20 MG ONCE IV (DC) Methylprednisolone Sodium Succinate (Solu-MEDROL) 125 MG ONCE IV (DC) Famotidine (PEPCID) 20 MG ONCE ONE IV (DC) Methylprednisolone Sodium Succinate (Solu-MEDROL) 125 MG ONCE ONE IV (DC) Diazepam (VALIUM) 5 MG ONCE ONE PO (DC) Diphenhydramine HCl (BENADRYL) 25 MG ONCE ONE PO (DC) ResultsFindings/Data:Laboratory Tests: 06/21 06/21 1210 0720 Chemistry Sodium (134 - 147 mmol/L) 142 Potassium (3.4 - 5.0 mmol/L) 3.4 Chloride (100 - 108 mmol/L) 107 Carbon Dioxide (21 - 32 mmol/L) 33 H Anion Gap (4.0 - 15.0 GAP calc) 2.0 L BUN (7 - 18 MG/DL) 34 H Creatinine (0.6 - 1.0 MG/DL) 0.9 Glomerular Filtr Rate (>60 estGFR) >=60 max estimate Glucose (70 - 110 MG/DL) 106 Calcium (8.5 - 10.1 MG/DL) 9.1 Magnesium (1.8 - 2.4 MG/DL) 2.1 Total Bilirubin (0.2 - 1.2 MG/DL) 0.40 AST (15 - 37 Unit/L) 17 ALT (12 - 78 Unit/L) 18 Total Alk Phosphatase (45 - 117 Unit/L) 75 Total Protein (6.4 - 8.2 G/DL) 7.5 Albumin (3.4 - 5.0 G/DL) 3.9 Globulin (GM/dL) 3.6 Albumin/Globulin Ratio (1.2 - 2.2 RATIO) 1.1 L Triglycerides (0 - 150 MG/DL) 74 Cholesterol (133 - 200 MG/DL) 150 LDL Cholesterol Measurd (0 - 129 MG/DL) 57 Non-HDL Cholesterol (<130 mg/dL) 64 HDL Cholesterol (40 - 59 MG/DL) 86 H LDL/HDL Ratio (1.48 - 3.22 Avg Ratio) 0.66 L Cholesterol/HDL Ratio (0 RATIO) 1.74 Coagulation INR (0.8 - 1.2 INR Unit) 0.87 PTT ([place]) (26 - 35 SECONDS) 30.6 PT Patient/Control Mix (9.3 - 12.9 SECONDS) 9.6 Activated Coag Time (74 - 125 SECistat) 288 H Hematology WBC (3.5 - 11.0 K/mm3) 6.3 RBC (4.70 - 6.10 M/mm3) 5.02 Hgb (10.4 - 14.9 G/DL) 15.7 H Hct (31.5 - 44.1 %) 49.9 H MCV (84.5 - 98.6 Fl) 99.4 H MCH (27.0 - 34.2 pg) 31.3 MCHC (31.5 - 34.0 G/DL) 31.5 RDW (11.5 - 14.5 SD) 13.4 Plt Count (150 - 450 K/mm3) 218 MPV (7.0 - 10.5 fL) 9.70 Neut % (Auto) (40 - 76 %) 56.2 Lymph % (Auto) (20.5 - 51.1 %) 29.9 [place] % (Auto) (1.7 - 9.3 %) 10.8 H Eos % (Auto) (0.0 - 6.0 %) 1.8 Baso % (Auto) (0.0 - 2.0 %) 1.0 Neut # (Auto) (1.8 - 7.6 K/mm3) 3.5 Lymph # (Auto) (0.6 - 3.2 K/mm3) 1.9 [place] # (Auto) (0.3 - 1.1 K/mm3) 0.7 Eos # (Auto) (0.0 - 0.4 K/mm3) 0.1 Baso # (Auto) (0.0 - 0.1 K/mm3) 0.1 Abs Immat Gran (auto) (0.00 - 0.03 x10 3/uL) 0.02 Add Manual Diff (CRITERIA DIFF/SCN) NO Immature Gran % (0.0 - 5.0 %) 0.3 Nucleated RBC % (0.0 - 1.0 /100WBC%) 0.0 Serology SARS-CoV-2 Ag (Rapid) (Negative) NEGATIVE Laboratory Tests 06/21/22 0720:[Embedded Image Not Available] Free Text PE NotesFree Text PE Notes:Physical ExamGeneral appearance: alert, awake, orientedHEENT : normocephalic ,AtraumaticEyes: Eyes normal inspection.ENT: Dry mucous membranes present.Neck: Normal inspection. Neck supple.CVS: Normal heart rate and rhythm. Heart sounds normal.Respiratory: No respiratory distress. Breath sounds normal.Abdomen: Soft and nontender.Genitourinary: no bladder distentionBack: Normal inspection.Skin: Skin warm. Normal skin color. No rash.Extremities: No lower extremity edema.Neuro: Oriented X 3. No motor deficitNo generalized lymph adenopathyPsych normal affect Diagnosis, Assessment PlanFree Text A P:Severe symptomatic PADStatus post directional atherectomy of right SFAStatus post stenting right SFAPain controlMonitor closely on telemetryContinue home medications and titrate as needed History of CADContinue home medicationsMonitor telemetry COPD no exacerbationBronchodilators as neededContinue home medications GERDContinue PPI GI/DVT prophylaxisAdvanced directive full code Total clinical care time used was 32 minutes at 0837 [facility] #: [id number] OF REPORT HPHistory and physical hyiyiwejvjg1540-11-36T02:08:00L.[id number] 0154AVAvailable for patient ocizEXAYXUJVLMYHMX7028-79-89Y47:37:20 [facility] 2022-06-21 13:13:00 [id number] DlhM6Cisq3slzS9lNrBNfM TnX58bOTWGAYB77P/m359lb2nQKb6CTOJH9222-55- 25T13:13:[id number] [place] [address] PATIENT NAME: ANGELICA ROY ADMIT DATE: 06/21/22ACCOUNT NO: [id number] ROOM NO: [facility] AGE: 77 REPORT TYPE: CARDIAC CATHETERIZATION REPORT SEX: F ADMITTING PHYSICIAN: Jose Mark MD ATTENDING PHYSICIAN: Rut Jimenez MD PROCEDURE DATE: 06/21/2022 LABORER TANBARK: Rut Jimenez MD INDICATION FOR PROCEDURE: Disabling claudication of the right lower extremity in a patient with severe bilateral peripheral arterial disease, status post stenting of the left SFA in 01/2022. TITLE OF THE PROCEDURES:1. Abdominal and bilateral selective iliofemoral angiograms.2. Third order angiogram of the right lower extremity.3. First order angiogram of the left lower extremity.4. Directional atherectomy of the right SFA.5. DCB of the right SFA x2.6. Stenting of the right SFA.7. Closing device. DISPOSITION: Medical therapy and risk factor modification. PROCEDURE IN DETAIL: After informed consent, the patient was brought to the cardiac catheterization lab in a stable fasting nonsedated state. She was prepped and draped in the usual sterile fashion. After conscious sedation, 1% lidocaine was administered to the left common femoral artery area for local anesthesia. A 6-Bahamian sheath was placed in the left common femoral artery using standard techniques and fluoroscopy. After heparinization, left SFA angiogram first order showed patent stent and 40% popliteal disease, 3-vessel runoff distally. Good flow down the infrapopliteal vessels. Abdominal angiogram showed luminal irregularities in the iliacs and no renal artery stenosis. Selective third-order angiogram of the right lower extremity shows 100% flush occlusion of the SFA, which reconstitutes down in the popliteal with slow flow distally. After heparinization, Plavix and aspirin and adequate ACT, using the pigtail and the [place] Advantage wire, I was able to use also the NaviCross catheter to cross the right SFA and take selective pictures infrapopliteal that showed adequate distal flow. Then, I did exchange the wire to a spider wire 6.0 EV3, then I did a Medtronic Hawk One; did several runs throughout the SFA that was followed by a Medtronic Impact distally, DCB balloon6 x 200 and then proximally 6 x 80, the same type of balloon. There was an areaof dissection in the distal SFA requiring a stent, so I placed an EverFlex EV3, 7 x 150 stent, self-expanding, and followed it with the post-dilation with the 8x 80 balloon. Final angiogram showed great angiographic results with great distal flow and no angiographic complications. The left groin was sealed using Angio-Seal. There were no complications. The patient tolerated the procedure PATIENT NAME: ANGELICA ROY well. She was transferred back to the holding area for observation to be discharged later on today on medical therapy and risk factor modification. Dictated By: Rut Jimenez MD Date Dictated: 06/21/2022 13:13:26Date Transcribed: 06/21/2022 19:12:41SFD/SUBJob #: [id number] ID: [id number] by Rut Jimenez MD On 06/21/2022 08:29:52 PM at 0829 PATIENT NAME: ANGELICA ROY pfxa0865-66-17K73:12:00L.[id number] VAvailable for patient pgpsANAFTURMAQEFLU5979-71-91V02:30:30 [facility] 2022-06-21 07:32:00 [id number] wPE/[id number] ovgfn7qkJBAh5/Af6Kd2F9NhsTdFDgvL0g2648-21- 25T07:32:904402-6799 [place] [address] PATIENT NAME: ANGELICA ROY ADMIT DATE: 06/21/22ACCOUNT NO: [id number] ROOM NO: AGE: 77 REPORT TYPE: eELECTROCARDIOGRAM SEX: F ADMITTING PHYSICIAN: ATTENDING PHYSICIAN: Rut Jimenez MD Order:[id number] Reason : CAD Test Date/Time Stamp:Sat Jun 21 2022 07:32:55Blood Pressure : / mmHGVent. Rate : 072 BPM Atrial Rate : 072 BPM P-R Int : 132 ms QRS Dur : 086 ms QT Int : 434 ms P-R-T Axes : 052 049 052 degrees QTc Int : 475 ms Normal sinus rhythmNormal ECGWhen compared with ECG of 15-FEB-2022 06:57,No significant change was foundConfirmed by RUT JIMENEZ ([id number]) on 06/21/2022 11:27:57 AM Referred By: Rut Jimenez Confirmed by:RUT JIMENEZ at 1127 PATIENT NAME: ANGELICA ROY .[id number] for patient uzzqTSLDEBMRJUPEPY9804-31-23J17:31:31 [facility] 2022-06-20 07:31:00 [id number] vdeU6Sah66GgThIFT0S1tJ wfpS5QupWjzAWXOvHqbCeYxwBY4/fsaX7A7362-15- 24T07:31:407433-[address] [address] PATIENT NAME: ANGELICA ROY ADMIT DATE: ACCOUNT NO: [id number] ROOM NO: AGE: 77 REPORT TYPE: HISTORY AND PHYSICAL SEX: F ADMITTING PHYSICIAN: ATTENDING PHYSICIAN: Rut Jimenez MD Cardiology PATIENT NAME: ANGELICA ROY ADMIT DATE:06/21/2022DMISSION DATE: 06/21/2022 08:15:00 LABORER TANBARK: Rut Jimenez M.D. REASON FOR ADMISSION: Symptomatic peripheral arterial disease for abdominal andbilateral selective iliofemoral angiograms and revascularization of her rightlower extremity. HISTORY OF PRESENT ILLNESS: Angelica is a 77-year-old lady with documented severebilateral symptomatic peripheral arterial disease. She was last at the [facility] on 02/15/2022, at that time, she was found to have mildaortoiliac disease and 100% occlusion of both SFAs with 3-vessel runoffbilaterally. 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 She continues to have significant symptoms of her right lowerextremity, so she is here today for followup angiograms and revascularization ofthe right lower extremity based on the results of the angiogram on the leftlower extremity. So, the access will be from the left groin. The patient wasseen in followup once since her procedure was on 03/27/2022 and her left leg wasfeeling remarkably better and she continued to have significant symptoms ofclaudications of her right lower extremity, which is not revascularized yet.Her cardiac status was otherwise stable. She has had a right coronary arterystent in 2018. She has had a carotid Doppler in 2021 showing less than 35%plaquing. She had an echocardiogram in 11/2021 showing mitral valve prolapsewith mild to moderate mitral regurgitation. She had a negative nuclear stresstest chemical on 12/2021. Holter monitor showed one short supraventriculartachycardia runs. Her ankle brachial index was 0.51 on the right and 0.49 onthe left prior to the procedure. Took the patient some time to schedule thisfollowup procedure due to transportation. PAST MEDICAL HISTORY: Remarkable for the above, in addition to hyperlipidemia,COPD, lumbar disk disease, lumbar radiculopathy, neuropathy, gastroesophagealreflux disease, gastroparesis, constipation, osteoarthritis, chronic sinusitis,anxiety, and allergies. PAST SURGICAL HISTORY: Right knee surgery and the above-mentionedcardiovascular procedure. ALLERGIES: SHE SAYS IODINE AND THAT WAS WHEN SHE WAS A CHILD. PATIENT NAME: ANGELICA ROY MEDICATIONS: Aspirin 81 mg daily, inhaler, rosuvastatin, albuterol, pcqkslmbjij52 mg daily, pantoprazole 40 mg daily. SOCIAL HISTORY: The patient continues to smoke. There is no history of alcoholor street drug use. FAMILY HISTORY: Negative for premature atherosclerotic cardiovascular disease. REVIEW OF SYSTEMS: Enclosed remarkable for the above, especially sinusproblems, cataracts, macular degeneration, dizziness, COPD symptoms, refluxdisease, gastroparesis and anxiety. No acute GI or symptoms, no TIAs orstrokes. PHYSICAL EXAMINATION:GENERAL: Reveals a pleasant elderly lady in no acute distress.VITAL SIGNS: Blood pressure 132/84, pulse 64 and regular, respiratory rate 16and unlabored, temperature afebrile.HEENT: Head atraumatic, normocephalic. Eyes ENT examination within normal forage.NECK: Supple, no jugular venous distention, bruits or lymphadenopathy. Normalupstroke.LUNGS: Decreased air entry at the bases, otherwise clear and resonant.HEART: Regular rate and rhythm with 2/6 systolic ejection murmur at the leftlower sternal border. No gallops.ABDOMEN: Soft, no tenderness, no organomegaly, no masses or bruits.EXTREMITIES: 1+ pulses on the right, 2+ on the left. No edema, cyanosis orclubbing.NEUROLOGIC: Alert and oriented x3. The examination appears to be nonfocal. LABORATORY DATA: Pending. Noninvasive cardiovascular workup enclosed. IMPRESSION: This is a 77-year-old lady with documented symptomatic peripheralarterial disease, status post revascularization of her left lower extremity backin 2021. She is here for followup angiograms and revascularization of the rightlower extremity. The recommendation is to proceed with the above procedure.The patient has significant symptomatic claudications and multiplecardiovascular risk factors. The risks and benefits of the planned procedureswere discussed in detail with the patient and available family members and sheis willing to proceed. Rest as per orders. The patient was advised againstrongly to quit smoking and continue to follow risk factor modification and shewill be premedicated for presumed IODINE ALLERGY. Dictated By: Rut Jimenez MD Date Dictated: 06/20/2022 07:31:26Date Transcribed: 06/20/2022 08:14:59SFD/Tommy #: [id number] ID: [id number] and Edited by Rut Jimenez MD On 06/20/22 12:51:37 PM PATIENT NAME: MANUELAANGELICA at 1253 PATIENT NAME: MANUELAANGELICA and physical xgxvlptmnmi3446-37-25H63:14:00L.[id number] 4-0001AVAvailable for patient ycptYNCZXJADTXZIKK8532-92-60K79:54:28 [facility] 2022-02-16 12:50:00 [id number] A31PThaJne40kHiiusVlR0 3GlIMCxd1b/S7R3EubJvK2PtxAdA1hSkdw8738-46- 23T12:50:00 [facility] ([facility])Hospitalist Discharge SummaryREPORT#:[id number] REPORT STATUS: SignedDATE:02/16/22 TIME: 1250 PATIENT: ANGELICA ROY UNIT #: [id number]#: [id number] [facility] [birth year] AGE: 76 SEX: F [facility]END[facility]el [facility] AUTHOR: Eitan Hale MD R1 * ALL edits or amendments must be made on the electronic/computer document * Eitan Hale 02/16/22 1250:General InformationProblem List/A P: 1. PVD (peripheral vascular disease) 2. S/P arterial stent 3. CAD (coronary artery disease) 4. S/P coronary artery stent placement Date of admission:Observation Start Date: 02/15/22Date of admission: 02/15/22 Discharge date: 02/16/22Discharge diagnosis:see aboveHospital course:Ms. Roy is a 76F with PMH of CAD with 1 stent and bilateral PVD who was admitted for evaluation of her bilateral symptomatic PVD. She underwent stentingof the left lower extremity. Patient tolerated procedure well. She has been afebrile and hemodynamically stable. Cardiology has cleared her for discharge and she will follow up with Dr. Jimenez in outpatient. Consultants: cardiologyPt. condition on discharge: stableAllergies:Allergies:iodine (Coded, Severe, SWELLING, 02/15/22) Med Rec Med RecDischarge meds:Continue taking these medications:LINACLOTIDE (LINZESS) 145 MCG CAP 145 MICROGRAM ORAL DAILY. GABAPENTIN (NEURONTIN) 800 MG TAB ALBUTEROL (PROAIR HFA 90 MCG/ACT 8.5 GM) 90 MCG INHALER 1 PUFF INHALATION RT - EVERY 6 HOURS. HYDROcodone/APAP (HYDROcodone/APAP 10/325) 10 MG-325 MG TAB ROSUVASTATIN (CRESTOR) 5 MG TAB 10 MILLIGRAM ORAL DAILY. FLUTICASONE PROPIONATE/SALMETEROL (ADVAIR DISKUS 500/50 MCG/ACT) 500 MCG-50 MCG/DOSE DISK.W.DEV 1 PUFF INHALATION RT - TWICE DAILY. METOCLOPRAMIDE (REGLAN) 5 MG TAB 5 MILLIGRAM ORAL BEFORE MEALS AND AT BEDTIME. TIOTROPIUM BROMIDE (SPIRIVA RESPIMAT 2.5 MCG/ACT) 2.5 MCG/ACTUATION INHALER 2 PUFF INHALATION RT - DAILY. CLOPIDOGREL (PLAVIX) 75 MG TAB 75 MILLIGRAM ORAL DAILY. Qty = 30 This prescription has been renewed Start taking the following new medications:ASPIRIN (ASPIRIN) 81 MG TAB.CHEW 81 MILLIGRAM ORAL DAILY. Qty = 30 Refills = 1 ObjectiveVS/I OLast Documented: Result Date Time Temp 36.8 02/16 1135 Pulse Ox 92 02/16 629 B/P 107/51 02/16 629 B/P Mean 70.1 02/16 629 Pulse 69 02/16 629 Resp 20 02/16 0405 O2 Delivery Room air 02/15 1642 24 hour I O ending at 0700: 02/16 0700 02/15 1900 Intake Total 300 Output Total 350 Balance -50 Intake, Oral 300 Number Voids 1 Output, Urine 350 Patient 59.091 kg Weight Weight Stated/Reported Measurement Method General appearance: alert, awake, orientedHead/Eyes: atraumatic, normocephalicENT: moist mucosal membranesNeck: no JVDCardiovascular: regular rate rhythmRespiratory: clear to auscultationAbdomen: non-tender, normal bowel sounds, softGenitourinary: no flank pain, no urinary catheterRectal: deferredExtremities: no edemaNeuro/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, oriented X 3, CNII-XII intactSkin: dry, intactWound/incision: Site Condition: dressing clean dryPsychiatry: normal affect, normal judgment/insight, normal mood ResultsFindings/Data:Laboratory Tests: 02/16 02/16 9470 0418 Chemistry Sodium (137 - 145 MMOL/L) 137 Potassium (3.5 - 5.1 MMOL/L) 4.1 Chloride (98 - 107 MMOL/L) 109 H Carbon Dioxide (22 - 30 MMOL/L) 25 Anion Gap (14 - 24 MMOL/L) 7 L BUN (7 - 17 MG/DL) 26 H Creatinine (0.52 - 1.04 MG/DL) 0.70 Glomerular Filtr Rate > 60 Glucose (74 - 106 MG/DL) 107 H Calcium (8.4 - 10.2 MG/DL) 8.2 L Hematology WBC (3.8 - 9.8 K/MM3) 12.8 H RBC (3.58 - 4.97 M/MM3) 4.04 Hgb (11.2 - 14.9 G/DL) 12.8 Hct (33.2 - 43.5 %) 38.8 MCV (80.7 - 99.1 fL) 96 MCH (27.0 - 34.1 pg) 31.7 MCHC (32.2 - 35.7 %) 33.0 RDW (12.1 - 15.2 %) 13.0 Plt Count (129 - 368 K/MM3) 173 MPV (7.4 - 10.4 fl) 10.5 H Neut % (Auto) (43 - 75 %) 85.7 H Lymph % (Auto) (14 - 44 %) 8.8 L [place] % (Auto) (4 - 13 %) 5.0 Eos % (Auto) (0 - 6 %) 0.0 Baso % (Auto) (0 - 2 %) 0.2 Neut # (Auto) (2.0 - 7.6 K/mm3) 10.98 H Lymph # (Auto) (1.0 - 3.8 K/mm3) 1.13 [place] # (Auto) (0.1 - 0.8 K/mm3) 0.64 Eos # (Auto) (0.0 - 0.2 K/mm3) 0.00 Baso # (Auto) (0.0 - 0.2 K/mm3) 0.02 Immature Gran % (0.0 - 2.0 %) 0.3 Nucleated RBC % (0 - 1.0 %) 0.0 Nucleated RBCs # (Man) (0.0 - 0.1 K/mm3) 0.00 Results: labs reviewed, vital signs reviewed Discharge Instructions PCPPCP follow-up:PCP: Rut Jimenez MD Cardiology Discharge to: Home/Self CareAdditional Discharge Routines: Attending Follow-UpDiet: CardiacPrescriptions: e-prescribeDischarge management: greater than 30 minsTime spent: Time spent on patient care (minutes): 37 Follow-up AppointmentsPCP follow-up: PCP follow up timeframe: In 1-2 weeksAttending Physician: Attending Physician: Rut Jimenez MD Cardiology Attending physician follow up timeframe: In 1-2 weeks Special instructions:Call to make appointment Sam Sauceda 02/17/22 0828:Attestations Teaching Physician AttestationF/U visit w/ resident:I saw the patient with the resident and RN. Agree with the resident's findings and plan.Continue current treatmentD/W Cardio ok to dc pt homewill discharge patient on plavix 75mg daily dischrage time > 30 minutes at 1319 at 0829 RPT #:[id number] OF REPORTDSDischarge pybzgjc3850-36-09T97:50:00Z.[id number] 165AVAvailable for patient yuxrUAVSNEVUNUSGDX3437-78-85Y54:21:03 [facility] 2022-02-16 07:00:00 [id number] BFAJkWgGGy/X4dcx0nGGHd 29ySpSgE1TlmcDBHMLAaLuQbykXym0KKcn3839-35- 23T07:00:00 [facility]Card[facility] Progress NoteREPORT#:[id number] REPORT STATUS: SignedDATE:02/16/22 TIME: 0700 PATIENT: ANGELICA ROY UNIT #: [id number]#: [id number] [facility] [birth year] AGE: 76 SEX: F ATTEND: Jj Patel MDADM AUTHOR: Guillermo Pinto MD * ALL edits or amendments must be made on the electronic/computer document * SubjectiveChief complaint:PVDPatient reports:No: chest pain, palpitations, shortness of breath. Objective GeneralVS/I O:24 hour I O ending at 0700: 02/16 0700 02/15 1900 Intake Total 300 Output Total 350 Balance -50 Intake, Oral 300 Number Voids 1 Output, Urine 350 Patient 59.091 kg Weight Weight Stated/Reported Measurement Method Vital Signs: Date Time Temp Pulse Resp B/P B/P Pulse O2 O2 Flow FiO2 Mean Ox Delivery Rate 02/16 06 69 107/51 70.1 92 02/16 0405 97.9 20 02/16 0350 78 93 02/16 0349 76 105/59 74.5 92 02/16 0000 97.9 20 02/15 2338 64 107/53 71.0 90 02/15 1943 97.9 18 02/15 1943 70 113/64 80.5 91 02/15 1642 98.1 84 18 122/66 84 98 Room air 02/15 1616 73 18 127/66 86.4 93 PATIENT WEIGHT: Weight (lb): 130Weight (oz): 4.37Weight (kg): 59.091 Medications:Active Meds + DC'd Last 24 HrsAspirin (ASPIRIN EC) 81 MG DAILY PO Atorvastatin Calcium (LIPITOR) 20 MG DAILY PO Clopidogrel Bisulfate (PLAVIX) 75 MG DAILY PO Influenza Virus Vaccine (FLUZONE HIGH-DOSE QUAD ) 240 MCG ASDIR IM (DC) Labetalol HCl (TRANDATE, NORMODYNE) 10 MG Q1H PRN PRN IV Acetaminophen (TYLENOL) 650 MG Q4H PRN PRN PO Hydrocodone Bitart/Acetaminophen (NORCO 5/325 TABLET (C-II)) 1 TAB Q4H PRN PRN PO Morphine Sulfate (morphine SULFATE (C-II)) 2 MG Q4H PRN PRN IV Ondansetron HCl (ZOFRAN) 4 MG Q8H PRN PRN IV Sodium Chloride (SODIUM CHLORIDE 0.9%) 1,000 ML ONCE ONE IV (DC) Nitroglycerin/Dextrose (NITROGLYCERIN IN D5W) 250 ML .STK-MED ONE IV (DC) Fentanyl Citrate (SUBLIMAZE (C-II)) 0 .STK-MED ONE .ROUTE (DC) Midazolam HCl (VERSED (C-IV)) 0 .STK-MED ONE .ROUTE (DC) Labetalol HCl (TRANDATE) 0 .STK-MED ONE .ROUTE (DC) Nitroglycerin (NITRO-BID UD) 0 .STK-MED ONE .ROUTE (DC) Midazolam HCl (VERSED (C-IV)) 0 .STK-MED ONE .ROUTE (DC) Fentanyl Citrate (SUBLIMAZE (C-II)) 0 .STK-MED ONE .ROUTE (DC) Heparin Sodium (HEPARIN SODIUM) 0 .STK-MED ONE .ROUTE (DC) Heparin Sodium/Sodium Chloride (HEPARIN 1000 UNITS/NS 500ML) 1,000 ML .STK-MED ONE IV (DC) Iopamidol (ISOVUE-300) 0 .STK-MED ONE .ROUTE (DC) Lidocaine (XYLOCAINE 1%) 0 .STK-MED ONE .ROUTE (DC) Midazolam HCl (VERSED (C-IV)) 0 .STK-MED ONE .ROUTE (DC) Famotidine (PEPCID) 0 .STK-MED ONE IV (DC) Clopidogrel Bisulfate (PLAVIX) 0 .STK-MED ONE PO (DC) Diphenhydramine HCl (BENADRYL) 0 .STK-MED ONE IV (DC) Magnesium Sulfate (MAG SULFATE 2GM PREMIX) 50 ML .STK-MED ONE IV (DC) Methylprednisolone Sodium Succinate (SOLU-Medrol) 0 .STK-MED ONE IV (DC) Aspirin (ASPIRIN) 0 .STK-MED ONE PO (DC) Diazepam (VALIUM (C-IV)) 0 .STK-MED ONE PO (DC) Sodium Chloride (SODIUM CHLORIDE 0.9%) 1,000 ML ONCE ONE IV (DC) Physical ExamGeneral appearance: alert, awake, orientedHead/Eyes: atraumatic, normocephalicENT: moist mucosal membranesNeck: no JVDCardiovascular: CV assessment: regular rate and rhythmRespiratory: clear to auscultation, no distressLower extremity: LE assessment: no edemaMusculoskeletal: full range of motionNeuro/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, oriented X 3, CN II-XII intactSkin: dry, intactWound/incision: Site condition: dressing clean dryPsychiatry: normal affect, normal judgment/insight, normal mood ResultsFindings/Data:Laboratory Tests 02/16 02/15 7318 0724 Chemistry Sodium (137 - 145 MMOL/L) 137 140 Potassium (3.5 - 5.1 MMOL/L) 4.1 3.6 Chloride (98 - 107 MMOL/L) 109 H 106 Carbon Dioxide (22 - 30 MMOL/L) 25 31 H Anion Gap (14 - 24 MMOL/L) 7 L BUN (7 - 17 MG/DL) 26 H 23 H Creatinine (0.52 - 1.04 MG/DL) 0.70 0.80 Glomerular Filtr Rate > 60 > 60 Glucose (74 - 106 MG/DL) 107 H 101 Calcium (8.4 - 10.2 MG/DL) 8.2 L 8.5 Magnesium (1.6 - 2.3 MG/DL) 1.7 Triglycerides (150 - 199 MG/DL) 68 L Cholesterol (<200 MG/DL) 101 LDL Cholesterol Measurd (0 - 99 MG/DL) 37 HDL Cholesterol (40 - 59 MG/DL) 50 Laboratory Tests 02/15 02/15 1140 0724 Coagulation INR (0.86 - 1.14) 0.9 APTT (26.2 - 35.4 SECONDS) 34.1 PT Patient/Control Mix (9.4 - 12.7 SECONDS) 10.5 Activated Coag Time (74 - 137 SEC) 289 H Laboratory Tests 02/16 02/15 0449 0724 Hematology WBC (3.8 - 9.8 K/MM3) 12.8 H 5.2 RBC (3.58 - 4.97 M/MM3) 4.04 4.17 Hgb (11.2 - 14.9 G/DL) 12.8 13.1 Hct (33.2 - 43.5 %) 38.8 40.8 MCV (80.7 - 99.1 fL) 96 98 MCH (27.0 - 34.1 pg) 31.7 31.4 MCHC (32.2 - 35.7 %) 33.0 32.1 L RDW (12.1 - 15.2 %) 13.0 13.4 Plt Count (129 - 368 K/MM3) 173 169 MPV (7.4 - 10.4 fl) 10.5 H 9.9 Neut % (Auto) (43 - 75 %) 85.7 H 66.7 Lymph % (Auto) (14 - 44 %) 8.8 L 23.2 Hal[place] % (Auto) (4 - 13 %) 5.0 7.7 Eos % (Auto) (0 - 6 %) 0.0 1.4 Baso % (Auto) (0 - 2 %) 0.2 0.8 Neut # (Auto) (2.0 - 7.6 K/mm3) 10.98 H 3.45 Lymph # (Auto) (1.0 - 3.8 K/mm3) 1.13 1.20 [place]ifax # (Auto) (0.1 - 0.8 K/mm3) 0.64 0.40 Eos # (Auto) (0.0 - 0.2 K/mm3) 0.00 0.07 Baso # (Auto) (0.0 - 0.2 K/mm3) 0.02 0.04 Immature Gran % (0.0 - 2.0 %) 0.3 0.2 Nucleated RBC % (0 - 1.0 %) 0.0 0.0 Nucleated RBCs # (Man) (0.0 - 0.1 K/mm3) 0.00 0.00 Laboratory Tests 02/15 0724 Chemistry Magnesium (1.6 - 2.3 MG/DL) 1.7 Laboratory Tests 02/15 0724 Coagulation APTT (26.2 - 35.4 SECONDS) 34.1 Diagnosis, Assessment Plan Free Text DxA P NotesFree Text DxA P Notes:IMP: PVD. 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 PLAN: d/c home. f/u with Dr. Jimenez. at 1501 RPT #:[id number] OF REPORTPRProgress swzr8089-30-24S13:00:00Z.[id number] AVAvailable for patient akhpGVEYZHSPJBAUPG7091-50-84D57:01:36 [facility] 2022-02-15 16:26:00 [id number] nKTX3O9WZgmdKHmZJnKahm vEMUuzSInaflpXQfZyl01QjzpvFD9HpODe2789-19- 22T16:26:00 [facility] ([facility])History Physical - AdultREPORT#:[id number] REPORT STATUS: SignedDATE:02/15/22 TIME: 1626 PATIENT: ANGELICA ROY UNIT #: [id number]#: [id number] ROOM/BED: [facility]-ADOB: [birth year] AGE: 76 SEX: F ATTEND: JorgeJj Jad [facility] AUTHOR: Sam Sauceda MD * ALL edits or amendments must be made on the electronic/computer document * History of Present Illness HPIChief complaint:PAD Free Text HPI NotesFree Text HPI Notes: Pt is 76 yrs old female with H/O GERD. COPD, PAD, neuropathy now came to hospital due to PAD. Pt admitted to hospital after angiogram. Pt is currently S/P Stent placement for SFA. Pt denies dyspnea, denies chest pain, denies palpitations. Denies fever or chills. Denies cough or sputum produtcion. Denies nausea or vomiting. Denies diarrhea. Denies abdominal pain. HistoryAdditional medical history:COPD, Neuropathy, GERD, PVD, CADAdditional surgical history:Cardiac cathAdditional family history:denies kidney problemsAdditional social history:denies drugs, denies alcohol Medication/Allergy-Vaccine HxAllergies:Coded Allergies:iodine (Severe, SWELLING 02/15/22) Review of SystemsConstitutional:Denies: fatigue, fever. Skin:Denies: bruising, contusion. Allergy/Immun:Denies: allergic reaction, hives. Eyes:Denies: visual loss/blurred, itching. ENT:Denies: earache, hearing loss. Respiratory:Denies: non productive cough, parox nocturnal dyspnea. Cardiovascular:Denies: CAMPOS (dyspnea on exertion), edema. GI:Denies: constipation, diarrhea. :Denies: frequency, hematuria. Musculoskeletal: Extremity pain: Denies: left lower, right lower. Heme:Denies: bleeding, bruising. Endocrine:Denies: polydipsia, polyphagia, polyuria. Neuro:Denies: confusion, dizziness. Psych:Denies: change in mental status, confusion. Physical ExamVS/I OVital Signs: Date Time Temp Pulse Resp B/P B/P Pulse O2 O2 Flow FiO2 Mean Ox Delivery Rate 02/15 1616 73 18 127/66 86.4 93 PATIENT WEIGHT: Weight (lb): Weight (oz): Weight (kg): General appearance: alert, awake, orientedHead/Eyes: atraumatic, normocephalicENT: normal noseNeck: full range of motion, no JVDCardiovascular: regular rate rhythm, normal heart sounds, no gallop, no murmur, no rubRespiratory: crackles, decreased breath sounds, clear to auscultation, no distressAbdomen/GI: distendedGenitourinary: no foleyExtremities: moves all, no pedal edemaMusculoskeletal: full range of motionNeuro/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, oriented X 3, CNII-XII grossly intactPsychiatry: normal mood ResultsFindings/Data:Laboratory Tests: 02/15 02/15 02/15 1140 0724 0450 Chemistry Sodium (137 - 145 MMOL/L) 140 Potassium (3.5 - 5.1 MMOL/L) 3.6 Chloride (98 - 107 MMOL/L) 106 Carbon Dioxide (22 - 30 MMOL/L) 31 H BUN (7 - 17 MG/DL) 23 H Creatinine (0.52 - 1.04 MG/DL) 0.80 Glomerular Filtr Rate > 60 Glucose (74 - 106 MG/DL) 101 Calcium (8.4 - 10.2 MG/DL) 8.5 Magnesium (1.6 - 2.3 MG/DL) 1.7 Triglycerides (150 - 199 MG/DL) 68 L Cholesterol (<200 MG/DL) 101 LDL Cholesterol Measurd (0 - 99 MG/DL) 37 HDL Cholesterol (40 - 59 MG/DL) 50 Coagulation INR (0.86 - 1.14) 0.9 APTT (26.2 - 35.4 SECONDS) 34.1 PT Patient/Control Mix (9.4 - 12.7 SECONDS) 10.5 Activated Coag Time (74 - 137 SEC) 289 H Hematology WBC (3.8 - 9.8 K/MM3) 5.2 RBC (3.58 - 4.97 M/MM3) 4.17 Hgb (11.2 - 14.9 G/DL) 13.1 Hct (33.2 - 43.5 %) 40.8 MCV (80.7 - 99.1 fL) 98 MCH (27.0 - 34.1 pg) 31.4 MCHC (32.2 - 35.7 %) 32.1 L RDW (12.1 - 15.2 %) 13.4 Plt Count (129 - 368 K/MM3) 169 MPV (7.4 - 10.4 fl) 9.9 Neut % (Auto) (43 - 75 %) 66.7 Lymph % (Auto) (14 - 44 %) 23.2 Halifax % (Auto) (4 - 13 %) 7.7 Eos % (Auto) (0 - 6 %) 1.4 Baso % (Auto) (0 - 2 %) 0.8 Neut # (Auto) (2.0 - 7.6 K/mm3) 3.45 Lymph # (Auto) (1.0 - 3.8 K/mm3) 1.20 Halifax # (Auto) (0.1 - 0.8 K/mm3) 0.40 Eos # (Auto) (0.0 - 0.2 K/mm3) 0.07 Baso # (Auto) (0.0 - 0.2 K/mm3) 0.04 Immature Gran % (0.0 - 2.0 %) 0.2 Nucleated RBC % (0 - 1.0 %) 0.0 Nucleated RBCs # (Man) (0.0 - 0.1 K/mm3) 0.00 Serology SARS-CoV-2 Ag (Rapid) (Negative) NEGATIVE Diagnosis, Assessment Plan Free Text DxA P NotesFree Text DxA P Notes: Pt is 76 yrs old female now came to hospital due to PAD 1. S/P SFA stent placement2. S/P Angiogram3. HLD4. PVD5. COPD5 Neuopathy PLAN: Appreciate cardiology inputmonitor bp closelycontinue plavixcontinue breathing treatmentscheck labs in amcounselled pt about diet and fluid intake case d/w pt RN at 0828 [facility] #:[id number] OF REPORTHPHistory and physical oqsxtweaplj3260-28-78D43:26:00Z.[id number] VAvailable for patient odhoAJLWHTVDQJRDFT4220-18-02U12:28:24 [facility] 12:25:00 [id number] TTJ8HFewilRa2wDjMPds2V 1dR5/1lu2YtzmEvRcCcqVyfPwxeSLHxJpB7149-34- 22T12:25:253798-[address] [address] PATIENT NAME: ANGELICA ROY ADMIT DATE: 02/15/22ACCOUNT NO: [id number] ROOM NO: AGE: 76 REPORT TYPE: CARDIAC CATHETERIZATION REPORT SEX: F ADMITTING PHYSICIAN: ATTENDING PHYSICIAN:Rut Jimenez MD Cardiology PROCEDURE DATE: 02/15/2022 LABORER TANBARK: Rut Jimenez M.D. INDICATION FOR THE PROCEDURE: Severe peripheral arterial disease with disabling claudications. TITLE OF THE PROCEDURE:1. Abdominal and bilateral selective iliofemoral angiograms.2. First order angiogram of the right lower extremity.3. Third order angiogram of the left lower extremity.4. Stenting of the left SFA x3.5. DCB of the left SFA.6. Nitroglycerin intravascular.7. Closing device. ESTIMATED BLOOD LOSS: Minimal. COMPLICATIONS: None. CONTRAST: 140 mL ANESTHESIA: Conscious sedation with Versed and fentanyl, 1% lidocaine for localanesthesia. FINAL DIAGNOSES: Occluded SFA x2 right at the ostium, status post drug-coated balloon and stenting of the left SFA 3 stents. DISPOSITION: Home in few hours. PROCEDURE IN DETAIL: After informed consent, the patient was brought to the cardiac catheterization lab in a stable fasting nonsedated state. She was prepped and draped in the usual sterile fashion. After conscious sedation, 1% lidocaine was administered to the right common femoral artery area for local anesthesia. A 6-Bahamian sheath was placed in the right common femoral artery using standard techniques and fluoroscopy. After heparinization, selective first order angiogram of the right lower extremity shows 100% occlusion of the SFA right at the ostium. It goes all the way down to the popliteal and then reconstitutes at the popliteal with 3-vessel runoff with collaterals from the profunda. Abdominal and bilateral selective iliofemoral angiograms was carried out. The abdomen appeared to be free of angiographic disease. The renals appeared to be free of angiographic disease. The right common iliac 20%. The PATIENT NAME: ANGELICA ROY left common iliac 30%. Right external iliac 30%. Then the right SFA is occluded at the ostium. So using a sheath that is KCFW 6-Bahamian and before thatusing the [place] Advantage wire and the pigtail, I was able to pass the sheath down all the way to the common femoral and take selective angiogram of the left lower extremity, which showed occlusion of the left SFA as the origin and then reconstitutes in the distal SFA with 3-vessel runoff distally. At this time, I decided to intervene on the left SFA after heparinization and the patient was already loaded with Plavix. Whiteface catheter was used and the [place] Advantage wire and I was able to cross relatively easily to the distal vessels. Then, I placed the Whiteface in the popliteal and documented 3-vessel runoff distally. Then I went ahead and stented the SFA lesion using 3 stents. The distal one was5 x 20 EverFlex. The one right above that was 6 x 150. Then the one above thatwas 6 x 40. Then I went ahead and dilated those stents with an IN.PACT Medtronic 155 x 150 and dilated the distal at 8 atmospheres and the proximal at 12 atmospheres. Final angiograms showed great blood flow all the way down the leg. The flow was so fast that I had to do a selective shot through the Rubiconcatheter at the popliteal to demonstrate intact blood flow with no angiographic complications. I did use nitro suspecting spasm, but there was no spasm. Then,the right groin was sealed using Angio-Seal. There were no complications. The patient tolerated the procedure well. She was transferred back to the holding area for observation to be discharged later on today on medical therapy and riskfactor modification. Dictated By: Rut Jimenez MD Date Dictated: 02/15/2022 12:25:34Date Transcribed: 02/15/2022 13:11:31SD/Beronica #: [id number] ID: [id number] by Rut Jimenez MD On 02/15/2022 01:51:31 PM at 0151 PATIENT NAME: ANGELICA ROY fapm2621-15-51Q20:11:00Z.[id number] VAvailable for patient dlicGKXGWERNNXJZOF5878-34-89M38:52:11 [facility] 2022-02-15 06:57:00 [id number] tOXlDZIFjeLLqQXnz+bPsR PpxjKuu2YOSzbfd0Z0qqICwEz32okW5MRB5351-63- 22T06:57:105938-[address] [address] PATIENT NAME: ANGELICA ROY ADMIT DATE: 02/15/22ACCOUNT NO: [id number] ROOM NO: AGE: 76 REPORT TYPE: ELECTROCARDIOGRAM SEX: F ADMITTING PHYSICIAN: ATTENDING PHYSICIAN:Rut Jimenez MD Cardiology Order:[id number] Reason : PRE-OP Test [facility] 06:57:35Blood Pressure : / mmHGVent. Rate : 069 BPM Atrial Rate : 069 BPM P-R Int : 132 ms QRS Dur : 084 ms QT Int : 416 ms P-R-T Axes : 074 071 066 degrees QTc Int : 445 ms Normal sinus rhythmLow voltage QRSBorderline ECGNo previous ECGs availableConfirmed by RUT JIMENEZ ([id number]) on 02/15/2022 9:06:51 AM Referred By: Self Referred Confirmed by:RUT JIMENEZ at 0906 PATIENT NAME: ANGELICA ROY .[id number] for patient ueelOLPKEVGMHKTMLO4583-57-77W03:07:24 [facility] 2022-02-15 06:57:00 [id number] 9J2LHjA2ifcg67AocaVPa6 Xjvqk+DFqxzdo4T3dxEzmeq4Ln9wmuMt1x1659-93- 22T06:57:552851-[address] [address] PATIENT NAME: ANGELICA ROY ADMIT DATE: 02/15/22ACCOUNT NO: [id number] ROOM NO: Z.361 AGE: 76 REPORT TYPE: ELECTROCARDIOGRAM SEX: F ADMITTING PHYSICIAN:Jj Patel MD ATTENDING PHYSICIAN:Jj Patel MD Order:[id number] Reason : PRE-OP Test [facility]Time [facility] 06:57:35Blood Pressure : / mmHGVent. Rate : 069 BPM Atrial Rate : 069 BPM P-R Int : 132 ms QRS Dur : 084 ms QT Int : 416 ms P-R-T Axes : 074 071 066 degrees QTc Int : 445 ms Normal sinus rhythmLow voltage QRSBorderline ECGNo previous ECGs availableConfirmed by RUT JIMENEZ ([id number]) on 02/17/2022 12:24:59 PM Referred By: Self Referred Confirmed by:RUT JIMENEZ at 1224 PATIENT NAME: ANGELICA ROY .[id number] for patient eoabMBRKSUGOITBELC1546-25-16P82:25:44 [facility] 2022-02-14 07:04:00 [id number] K6rbTvovGgSkLh7Ki4qsZO MGQBBf5Q7jLxGqdTdnvklXCM6u1boF9OJ19721-44- 21T07:04:[id number] [address] PATIENT NAME: ANGELICA ROY ADMIT DATE: ACCOUNT NO: [id number] ROOM NO: AGE: 76 REPORT TYPE: HISTORY AND PHYSICAL SEX: F ADMITTING PHYSICIAN: ATTENDING PHYSICIAN:Rut Jimenez MD Cardiology PATIENT NAME: ANGELICA ROY ADMIT DATE:02/15/2022DMISSION DATE: 02/15/2022 06:00:00 LABORER TANBARK: Rut Jimenez MD REASON FOR ADMISSION: Symptomatic peripheral arterial disease, for peripheralangiograms and possible revascularization. HISTORY OF PRESENT ILLNESS: Angelica is a 76-year-old lady with knownatherosclerotic cardiovascular disease, who [place] of[place]ptomatic peripheral arterial disease bilaterally. She also had some dyspnea,palpitations, chest pains and dizziness. She underwent a full noninvasivecardiac workup, had a carotid Doppler with less than 35% plaquing. The patienthad an echocardiogram showing mitral valve prolapse and mild to moderate mitralregurgitation, normal ejection fraction. She had a negative chemical nuclearstress test with ejection fraction of 53%. She had one short supraventriculartachycardia run on a 48-hour monitor. Her lower arterial Doppler examinationshowed the right ankle brachial index to be 0.51 and the left one 0.49, bothsuggestive of severe iliofemoral disease bilaterally. Given this informationand the patient's symptoms, she is here for angiography and possiblerevascularization. We will start off this admission from the right groin andrevascularize the left leg and then she will be brought back for the other legin few weeks. This is all based on the anatomy obtained by angiography. Thepatient has a history of coronary artery disease and [facility]. The details of that hospitalizationand procedure are not available. The patient has disabling claudications ofbilateral lower extremities equally the same. PAST MEDICAL HISTORY: Remarkable for the above, in addition to hyperlipidemia,COPD, lumbar disk disease, lumbar radiculopathy, neuropathy, gastroesophagealreflux disease, gastroparesis, constipation, osteoarthritis, chronic sinusitis,anxiety and allergic rhinitis. PAST SURGICAL HISTORY: Right knee surgery and the above-mentioned cardiacprocedure. ALLERGIES: IODINE. SHE WAS TOLD SHE IS ALLERGIC TO IT WHEN SHE WAS A CHILD. MEDICATIONS: She is taking aspirin 81 mg daily, inhalers, Linzess, swypmizvchrl79 mg daily, albuterol, clopidogrel 75 mg daily, rest of the medications areenclosed including pantoprazole 40 mg daily. PATIENT NAME: ANGELICA ORY SOCIAL HISTORY: The patient is an active smoker. There is no history ofalcohol or street drug use. FAMILY HISTORY: Negative for premature atherosclerosis. REVIEW OF SYSTEMS: Remarkable for the above, especially sinus problems. Shehad cataracts, macular degeneration, dizziness at times, COPD symptoms, refluxdisease, gastroparesis symptoms. No acute GI or symptoms. No TIAs orstrokes. The patient does have history of anxiety. PHYSICAL EXAMINATION:GENERAL: Reveals a pleasant elderly lady in no acute distress.VITAL SIGNS: Blood pressure 116/65, pulse 64 and regular, respiratory rate 18and unlabored, temperature afebrile.HEENT: Head atraumatic, normocephalic. Eyes ENT examination within normal forage.NECK: Supple, no jugular venous distention, bruits or lymphadenopathy. Normalupstroke.LUNGS: Decreased air entry, otherwise clear and resonant.HEART: Regular rate and rhythm with II/ systolic ejection murmur at the leftlower sternal border. No gallops.ABDOMEN: Soft, no tenderness, no organomegaly, no masses or bruits.EXTREMITIES: A 0-1+ distal pulses. No edema, cyanosis or clubbing.NEUROLOGIC: Alert and oriented x3. Examination appears to be nonfocal. LABORATORY DATA: Pending. Noninvasive cardiovascular workup enclosed. IMPRESSION: This is a 76-year-old lady with advanced atheroscleroticcardiovascular disease, previous coronary intervention, who comes in withworsening symptomatic peripheral arterial disease bilaterally. She has abnormallower arterial Doppler examination, she is here for abdominal and bilateralselective iliofemoral angiograms and possible revascularization of the leftlower extremity, the access will be from the right groin. RECOMMENDATION: To proceed with the above-mentioned procedures. The risks andbenefits of the planned procedures were discussed in detail with the patient andavailable family members and she is willing to proceed. Rest as per orders.The patient was also strongly advised to quit smoking and continue risk factormodification. Dictated By: Rut Jimenez MD Date Dictated: 02/14/2022 07:04:28Date Transcribed: 02/14/2022 07:24:39SD/ROVJob #: [id number] ID: [id number] and Edited by Rut Jimenez MD On 02/14/22 1:54:09 PM at 0157 PATIENT NAME: ANGELICA ROY and physical aqkfmhccsqs6208-02-79W31:24:00Z.[id number] for patient thalEGCQEIJZCJTMKM9617-36-31V72:58:40 [facility]
[2023-11-03] MEDS ORDERED: HYDROCODONE/APAP 5/325 MG TAB ONE (12:31)
--- NOTE | 2023-11-03 12:35 | RAD REPORT ---
EXAM DESCRIPTION: RAD - Foot Left 3 View - 11/03/2023 12:26 pm CLINICAL HISTORY: heel pain COMPARISON: No comparisons FINDINGS: Mild to moderate intertarsal degenerative changes are present. No fracture or dislocation seen. Small plantar and moderate posterior calcaneal spur.
[2023-11-03 14:03] LABS: Calcium Oxalate Crystals- Ur Many /HPF (None Seen); Specific Gravity 1.025 (1.005-1.030); Sqamous Epithelial <5 /HPF (None Seen); Urine Bacteria >50 /HPF (<20); Urine Bilirubin NEGATIVE (Negative); Urine Blood Negative (Negative); Urine Clarity Extremely Turbid (Clear); Urine Color Yellow (Yellow); Urine Culture Reflex Order NOT NEEDED; Urine Glucose NEGATIVE (Negative); Urine Ketones TRACE (Negative); Urine Micro Reflex YN NO BILL MICROSCOPIC; Urine Mucus 2+ /HPF (None Seen); Urine Nitrite 2+ (Negative); Urine Protein 1+ (Negative); Urine RBC None Seen /HPF (None Seen); Urine Urobilinogen 1+ (Normal); Urine pH 5.5 (5.0-7.0)
[2023-11-03] MEDS ORDERED: CEFTRIAXONE 1000 MG/VIAL ONE (14:14)
--- NOTE | 2023-11-03 14:20 | ER ---
Nurse's Notes [facility] Name: Angelica Carreno Age: 78 yrs Sex: Female : 1945 Arrival Date: 11/03/2023 Time: 11:40 Bed 25 Private MD: Diagnosis: Calcaneal spur, left foot;UTI/ Urinary tract infection, site not specified Presentation: 11/02 11:57 Chief complaint: Patient states: "I have something on my heel that is making it hard to as6 stand and a have a knot on my side and I have UTI". Coronavirus screen: At this time, the client does not indicate any symptoms associated with coronavirus-19. Ebola Screen: No symptoms or risks identified at this time. Initial Sepsis Screen: Does the patient meet any 2 criteria? No. Patient's initial sepsis screen is negative. Does the patient have a suspected source of infection? No. Patient's initial sepsis screen is negative. Risk Assessment: Do you want to hurt yourself or someone else? Patient reports no desire to harm self or others. Onset of symptoms was August 2023. 11:57 Method Of Arrival: Wheelchair as6 11:57 Acuity: SEAN 3 as6 Historical: - Allergies: 11:59 Iodine; as6 - PMHx: 11:59 Chronic obstructive lung disease; as6 - PSHx: 11:59 hernia; Total abdominal hysterectomy; knee; as6 - Immunization history:: Adult Immunizations not up to date. - Infectious Disease History:: Denies. - Social history:: Smoking status: Patient reports the use of cigarette tobacco products, smokes one pack cigarettes per day. Screenin:22 [facility] ED Fall Risk Assessment (Adult) History of falling in the last 3 months, nj including since admission No falls in past 3 months (0 pts) Confusion or Disorientation No (0 pts) Intoxicated or Sedated No (0 pts) Impaired Gait Yes (1 pt) Mobility Assist Device Used No (0 pt) Altered Elimination Yes (1 pt) Score/Fall Risk Level 0 - 2 = Low Risk Oriented to surroundings, Maintained a safe environment, Hourly rounding (assess needs \\T\\ fall precautionary measures) done. Abuse screen: Denies threats or abuse. Denies injuries from another. Nutritional screening: No deficits noted. Tuberculosis screening: No symptoms or risk factors identified. Assessment: 12:21 General: Appears in no apparent distress. comfortable, Behavior is calm, cooperative, nj1 appropriate for age. Pain: Complains of pain in left foot Pain currently is 9 out of 10 on a pain scale. Neuro: Level of Consciousness is awake, alert, obeys commands, Oriented to person, place, situation. Cardiovascular: Patient's skin is warm and dry. Respiratory: Airway is patent Respiratory effort is even, unlabored. : Reports dysuria. Musculoskeletal: Reports pain in left foot. 14:58 Reassessment: No changes from previously documented assessment. Patient is alert, kj2 oriented x 3, equal unlabored respirations, skin warm/dry/pink. Vital Signs: 11:57 BP 123 / 71; Pulse 109; Resp 18; Temp 97.4; Pulse Ox 97% ; Weight 52.16 kg; Height 5 as6 ft. 6 in. ; Pain 9/10; 14:56 BP 148 / 71; Pulse 99; Resp 16; Temp 97.9; Pulse Ox 95% on R/A; kj2 11:57 Body Mass Index 18.56 (52.16 kg, 167.64 cm) as6 11:57 Pain Scale: Adult as6 ED Course: 11:46 Patient arrived in ED. ra3 11:50 Ese Ervin PA-C is PHCP. sb4 11:50 Alin Reis DO is Attending Physician. sb4 11:57 Arm band placed on. as6 11:59 Triage completed. as6 12:14 Soheila Warren, RN is Primary Nurse. nj1 12:23 Patient has correct armband on for positive identification. Bed in low position. Call nj1 light in reach. Provided Education on: call light, fall precautions. 12:28 Foot Left 3 View XRAY In Process Unspecified. EDMS 13:38 Urine collected: clean catch specimen, cloudy. tm3 14:19 Yamileth Hassan MD is Referral Physician. sb4 14:19 Nicholas Potter MD is Referral Physician. sb4 15:00 No provider procedures requiring assistance completed. kj2 15:02 Patient did not have IV access during this emergency room visit. kj2 Administered Medications: 12:34 Drug: HYDROcodone-acetaminophen PO 5 mg-325 mg 1 tabs PO once Route: PO; kj2 14:25 Drug: Rocephin (cefTRIAXone) IM 1 grams IM once Route: IM; Site: right gluteus; kj2 15:03 Follow up: Response: No adverse reaction kj2 Medication: 14:59 VIS not applicable for this client. kj2 Outcome: 14:20 Discharge ordered by MD. nunez 14:57 Patient left the ED. nj1 14:59 Discharged to home via wheelchair, kj2 14:59 Condition: stable kj2 14:59 Discharge instructions given to patient, Instructed on discharge instructions, follow up and referral plans. Signatures: Dispatcher [employer] EDMS Xiang Moralesi tm3 Brant Herrera RN RN as6 Ese Ervin PALien PA-Brad abbasi4 Soheila Warren RN RN nj1 Valeria Sneed ra3 Valerie Verdin, KEYANA RN kj2 Corrections: (The following items were deleted from the chart) 12:22 12:21 Pain: Complains of pain in left foot nj1 nj1
--- NOTE | 2023-11-03 14:20 | EDPHYS ---
Physician Documentation [facility] Name: Angelica Carreno Age: 78 yrs Sex: Female : 1945 Arrival Date: 11/03/2023 Time: 11:40 Bed 25 Private MD: ED Physician Alin Reis HPI: 11/02 12:23 This 78 yrs old Female presents to ER via Wheelchair with complaints of Urinary sb4 Problem, Feet Swelling - [id number], Breast Lump. 13:25 Patient states she has had a bump on her left heel for a few months now that is causing sb4 her pain. additionally, she reports a breast lump and believes she has a UTI. denies any fever, nausea, vomiting, diarrhea, injury. Historical: - Allergies: 11:59 Iodine; as6 - PMHx: 11:59 Chronic obstructive lung disease; as6 - PSHx: 11:59 hernia; Total abdominal hysterectomy; knee; as6 - Immunization history:: Adult Immunizations not up to date. - Infectious Disease History:: Denies. - Social history:: Smoking status: Patient reports the use of cigarette tobacco products, smokes one pack cigarettes per day. ROS: 13:25 Constitutional: Negative for fever, chills, and weight loss, sb4 13:25 : Positive for burning with urination, 13:25 MS/extremity: Positive for pain, of the left foot, 13:25 All other systems are negative, Exam: 13:28 Constitutional: This is a well developed, well nourished patient who is awake, alert, sb4 and in no acute distress. Head/Face: Normocephalic, atraumatic. Eyes: Extra-ocular motions intact. Periorbital areas with no swelling, redness, or edema. ENT: Mucous membranes moist. Skin: Warm, dry with normal turgor. Normal color with no rashes, no lesions, and no evidence of cellulitis. MS/ Extremity: Pulses equal, no cyanosis. Neurovascular intact. Full, normal range of motion. Neuro: Awake and alert, GCS 15, oriented to person, place, time, and situation. Motor strength 5/5 in all extremities. Sensory grossly intact. Vital Signs: 11:57 BP 123 / 71; Pulse 109; Resp 18; Temp 97.4; Pulse Ox 97% ; Weight 52.16 kg; Height 5 as6 ft. 6 in. ; Pain 9/10; 14:56 BP 148 / 71; Pulse 99; Resp 16; Temp 97.9; Pulse Ox 95% on R/A; kj2 11:57 Body Mass Index 18.56 (52.16 kg, 167.64 cm) as6 11:57 Pain Scale: Adult as6 MDM: 12:03 Patient medically screened. sb4 14:19 Data reviewed: vital signs, nurses notes, lab test result(s), radiologic studies, and sb4 as a result, I will discharge patient. Counseling: I had a detailed discussion with the patient and/or guardian regarding the historical points, exam findings, and any diagnostic results supporting the discharge/admit diagnosis, lab results, radiology results, to return to the emergency department if symptoms worsen or persist or if there are any questions or concerns that arise at home. 11/02 12:15 Order name: UAM; Complete Time: 14:06 sb4 11/02 12:15 Order name: Foot Left 3 View XRAY; Complete Time: 12:35 sb4 11/02 14:08 Order name: Orthopedic shoe; Complete Time: 14:57 sb4 Administered Medications: 12:34 Drug: HYDROcodone-acetaminophen PO 5 mg-325 mg 1 tabs PO once Route: PO; kj2 14:25 Drug: Rocephin (cefTRIAXone) IM 1 grams IM once Route: IM; Site: right gluteus; kj2 15:03 Follow up: Response: No adverse reaction kj2 Disposition: 21:13 I was immediately available on-site in the Emergency Department for consultation in the ms3 care of the patient. Disposition Summary: 11/03/23 14:20 Discharge Ordered Notes: Location: Home sb4 Problem: new sb4 Symptoms: have improved sb4 Condition: Stable sb4 Diagnosis - Calcaneal spur, left foot sb4 - UTI/ Urinary tract infection, site not specified sb4 Followup: sb4 - With: Yamileth Hassan MD - When: As needed - Reason: Recheck today's complaints, Re-evaluation by your physician Followup: sb4 - With: Nicholas Potter MD - When: As needed - Reason: Recheck today's complaints, Re-evaluation by your physician Discharge Instructions: - Discharge Summary Sheet sb4 - Heel Spur sb4 - Urinary Tract Infection, Adult, [id number] sb4 Forms: - Antibiotic Education sb4 - Patient Portal Instructions sb4 - Leadership Thank You Letter sb4 Prescriptions: - cefpodoxime 100 mg Oral Tablet - take 1 tablet ORAL route every 12 hours for 10 days take with food; 20 tablet; sb4 Refills: 0, Product Selection Permitted Signatures: Dispatcher [employer] EDMS Alin Reis, DO ms3 Brant Herrera, RN RN as6 Ese Ervin, PA-C PA-C sb4 Valerie Verdin, KEYANA RN kj2 Corrections: (The following items were deleted from the chart) 12:15 12:15 Urinalysis W/Microscopic+U.LAB.BRZ ordered. EDMS EDMS 12:15 12:15 Foot Left 3 View+RAD.RAD.BRZ ordered. EDMS EDMS
[2023-11-03 15:39] VITALS: BP 123/71; TEMP 97.4; O2SAT 97
== END 2023-11-03 14:57 | disposition home or self-care (01) ==
LOC: ER 11:40
DX: M77.32 Calcaneal spur, left foot (principal); N39.0 Urinary tract infection, site not specified; F17.210 Nicotine dependence, cigarettes, uncomplicated
CPT/HCPCS: 81001; 73630; 96372; 99284; J0696

== ENCOUNTER 2023-11-23 09:38 | Inpatient (IN) | payer OTHER ==
--- OUTSIDE RECORDS SUMMARY | 2023-11-23 09:44 | XMS REPORT | Continuity of Care Document ---
Author Name Unknown Address [address] [facility] [place] [address] [facility] Address [address] [place] [address] Care Team Providers Care Performance Improvement Consultant Name Role Phone JERMAN LEUNG Primary Care Physician UnavailKALI Joel Attending Clinician Unavailab KALI Alexandre Attending Clinician UnavailKali Joel DO Attending Clinician [phone] Efren KUMARI Attending Clinician Unavailable Erfen KUMARI Attending Clinician Unavailable Therapist, Adc Respiratory Attending Clinician U navailable Doctor Unassigned, [place] Attending Clinician U navailable RADIOLOGY Attending Clinician Unavailable Radiology Attending Clinician Unavailable Rut Jimenez Cardiology Attending Clinician Unavailable Jj Patel Attending Clinician Unavailable Efren KUMARI Admitting Clinician Unavailable KALI MORGAN Admitting Clinician Unavailable JERMAN LEUNG Admitting Clinician Unavailable Jerman Leung Admitting Clinician Unavailable Jose Mark Admitting Clinician Unavailable Jj Patel Admitting Clinician Unavailable Payers Payer Name Policy Type Policy Number Effective Date Expirati on Date Source [facility] DUAL COMP HMO D SNP [id number] 2022 00:00:00 [place] [id number] 2023 00:00:00 Allergies, Adverse Reactions, Alerts Allergy Name Allergy Type Status Severity Reaction(s) Onset Date Inactive Date Treating Clinician Comments Source IODINE DRUG INGREDI Active Swelling 06-28 00:00: 00 [facility] Iodine Propensi ty to adverse reaction s Active Swelling 06-28 00:00: 00 [facility] iodine DA Active SV SWELLING 2022-04 00:00: 00 [facility] iodine DA Active SV SWELLING 2021-04 0 00:00: 00 [facility] NO KNOWN ALLERGIE S Drug Class Active [facility] Social History Social Habit Start Date Stop Date Quantity Comments Source Sexual orientation U [facility] Sex assigned at 1945 00:00:00 1945 00:00:00 [facility] Smoking Status Start Date Stop Date Source Tobacco smoking consumption unknown [facility] Medications Ordered Medication Name Filled Medication Name Start Date Stop Date Current Medication? Ordering Clinician Indication Dosage Frequency Signature (SIG) Comments Components Source NaCl 0.9% (NS) bolus infusion 1,000 mL 11-12 22:45: 00 11-12 23:35 :00 No 1000mL at 999 mL/hr, 1,000 mL, IV Infusion, ONCE, 1 dose, On Thu11/13/23 at 1745, STAT [facility] cefTRIAXone (ROCEPHIN) 1,000 mg in NaCl 0.9% (NS) 100 mL MINI-BAG 11-12 21:45: 00 11-12 22:50 :00 No 1000mg 1,000 mg, IV Piggyback, ONCE, 1 dose, On Thu11/13/23 at 1645, Administer over 30 Minutes, 100 mL, Reason for Anti-Infec tive: Documented Infection, Documented Infection Site: Urine, Duration of Therapy: Once (ED) [facility] ondansetron 4 mg disintegrat ing tablet 11-12 00:00: 00 Yes [id number] 4mg Take 1 tablet by mouth every 8 (eight) hours as needed for Nausea and Vomiting (N/V). [facility] cefdinir 300 mg capsule 11-12 00:00: 00 11-23 04:59 :00 Yes [id number] 300mg Take 1 capsule by mouth every 12 (twelve) hours for 10 days. [facility] albuterol 90 mcg/actuati on inhaler 10-12 08:57: 14 Yes 2{puff} Inhale 2 Puffs every 6 (six) hours as needed for Wheezing or Shortness of Breath. [facility] diphenhydrA MINE (BENADRYL ALLERGY) 25 mg tablet 10-12 08:57: 14 Yes 25mg Take 1 tablet by mouth every 4 (four) hours as needed for Allergies. [facility] fluticasone propionate (ALLERGY RELIEF, FLUTICASONE ,) 50 mcg/actuati on nasal spray 10-12 08:57: 14 Yes Use in each nostril daily. [facility] tiotropium- olodateroL (STIOLTO RESPIMAT) 2.5-2.5 mcg/actuati on Mist 10-12 00:00: 00 Yes [id number] 2{puff} Inhale 2 Puffs in the morning. [facility] albuterol 90 mcg/actuati on inhaler 04 09:33: 15 Yes 2{puff} Inhale 2 Puffs every 6 (six) hours as needed for Wheezing or Shortness of Breath. [facility] diphenhydrA MINE (BENADRYL ALLERGY) 25 mg tablet 04 09:33: 15 Yes 25mg Take 1 tablet by mouth every 4 (four) hours as needed for Allergies. [facility] fluticasone propionate (ALLERGY RELIEF, FLUTICASONE ,) 50 mcg/actuati on nasal spray 06-28 09:33: 15 Yes Use in each nostril daily. [facility] HYDROcodone -acetaminop hen 10-325 mg tablet 2-28 00:00: 00 Yes TAKE 1 TABLET BY MOUTH EVERY 6 HOURS NEEDED FOR 28 DAYS [facility] gabapentin 800 mg tablet 06-18 00:00: 00 Yes 800mg Take 1 tablet by mouth in the morning and 1 tablet at noon and 1 tablet in the evening. [facility] clopid[facility] 75 mg tablet 06-03 00:00: 00 Yes [facility] rosuvastati n 10 mg tablet 06-03 00:00: 00 Yes [facility] nitroglycer in 0.4 mg sublingual tablet 06-02 00:00: 00 Yes DIRECTED SUBLINGUAL ONCE A DAY 30 DAYS [facility] montelukast 10 mg tablet 06-01 00:00: 00 Yes [facility] WIXELA INHUB 500-50 mcg/dose inhalation disk 05-25 00:00: 00 Yes [facility] pantoprazol e 40 mg EC tablet 05-25 00:00: 00 Yes [facility] LINZESS 145 mcg capsule 05-25 00:00: 00 Yes [facility] SPIRIVA RESPIMAT 2.5 mcg/actuati on Mist 2022-04 00:00: 00 Yes [facility] Vital Signs Vital Name Observation Time Observation Value Comments S ource Heart rate 2023-11-13 23:43:00 90 /[facility] Body temperature 2023-11-13 23:43:00 36.72 Ara [facility] Oxygen saturation in Arterial blood by Pulse oximetry 2023-11-13 23:43:00 96 /min [facility] hospital Systolic blood pressure 2023-11-13 23:00:00 162 mm[Hg] [facility] Diastolic blood pressure 2023-11-13 23:00:00 73 mm[Hg] [facility] Respiratory rate 2023-11-13 23:00:00 21 /min [facility] Body height 2023-11-13 17:22:00 162.6 cm [facility] Body weight 2023-11-13 17:22:00 54.432 kg [facility] BMI 2023-11-13 17:22:00 20.60 kg/m2 [facility] Systolic blood pressure 2023-10-13 14:36:00 143 mm[Hg] [facility] acute hospital Diastolic blood pressure 2023-10-13 14:36:00 63 mm[Hg] [facility] hospital Heart rate 2023-10-13 14:36:00 94 /min [facility] Oxygen saturation in Arterial blood by Pulse oximetry 2023-10-13 14:36:00 100 /min [facility] acute hospital Respiratory rate 2023-10-13 14:33:00 18 /min [facility] Body height 2023-10-13 14:33:00 167.6 cm [facility] Body weight 2023-10-13 14:33:[address] [facility] [place] [place] 2023-10-13 14:33:00 19.85 kg/m2 [facility] Systolic blood pressure 2023-06-29 15:38:00 135 mm[Hg] [facility] acute hospital Diastolic blood pressure 2023-06-29 15:38:00 78 mm[Hg] [facility] acute hospital Heart rate 2023-06-29 15:38:00 84 /min [facility] Body height 2023-06-29 15:38:00 167.6 cm [facility] Body weight 2023-06-29 15:38:00 62.642 kg [facility] BMI 2023-06-29 15:38:00 22.29 kg/m2 [facility] Oxygen saturation in Arterial blood by Pulse oximetry 2023-06-29 15:38:00 93 /min [facility] acute hospital Procedures Procedure Date / Time Performed Performing Clinicia n Source EKG-12 LEAD 2023-11-13 22:16:13 Efren Kumari [facility] XR FOOT 3+ VW LEFT 2023-11-13 19:43:21 Efren Kumari [facility] LIPASE 2023-11-13 19:30:00 Efren Kumari [facility] MAGNESIUM 2023-11-13 19:30:00 Efren Kumari [facility] TROPONIN I 2023-11-13 19:30:00 Efren Kumari [facility] COMP. METABOLIC PANEL (42911) 2023-11-13 19:30:00 Efren Kumari [facility] CBC WITH DIFF 2023-11-13 19:30:00 [facility] UR[facility]IS 2023-11-13 18:52:00 Efren Kumari [facility] EXTERNAL PROVIDER - ADC REFERRAL 2023-06-01 06:01:00 Doctor Unassigned, [place] [facility] Encounters Start Date/Time End Date/Time Encounter Type Admission Type Attending Clinicians Care Facility Care Department Encounter ID Source 2024-01-12 10:30:00 2024-01-12 10:30:00 Outpatient KALI SHETTY SHINJAmaury [facility] [id number] [facility] 2023-11-23 00:00:00 2023-11-23 00:00:00 Outpatient KALI SHETTY SHIWAN [facility] [id number] [facility] 2023-11-13 00:00:00 2023-11-20 12:49:28 Telephone Kali Morgan [facility] 1..840.114 350.1.13.10 4.2.7.2.686 [id number] [facility] 2023-11-13 12:26:00 2023-11-13 18:46:00 Emergency X Efren KUMARI K [facility] ERT [id number] [facility] 2023-11-13 12:26:00 2023-11-13 18:46:00 Emergency Efren Kumari [facility] ..840.114 350.1.13.10 4.2.7.2.686 [id number] [facility] 2023-11-12 10:00:00 2023-11-12 10:00:00 Outpatient R KALI MORGAN SHIWAN [facility] [id number] [facility] 2023-10-13 09:30:00 2023-10-13 10:00:00 Office Visit Kali Morgan [facility] 1.2.840.114 350.1.13.10 4.2.7.2.686 [id number] [facility] 2023-10-13 09:30:00 2023-10-13 09:30:00 Outpatient R KALI MORGAN SHIWAN [facility] [id number] [facility] 2023-09-29 09:30:00 2023-09-29 09:30:00 Outpatient R KALI MORGAN SHIWAN [facility] [id number] [facility] 2023-08-25 00:00:00 2023-08-25 00:00:00 [facility] 1.2.840.114 350.1.13.10 4.2.7.2.686 [id number] [facility] 2023-08-13 09:30:00 2023-08-13 11:00:00 Net [employer] Developer Visit Therapist, Adc Respiratory Kali Morgan [facility] 1.2.840.114 350.1.13.10 4.2.7.2.686 [id number] [facility] 2023-08-13 09:30:00 2023-08-13 09:30:00 Outpatient R KALI MORGAN SHIWAN [facility] [id number] [facility] 2023-08-03 08:27:47 2023-08-03 23:59:00 Outpatient R KALI MORGAN SHIWAN [facility] [id number] [facility] 2023-08-03 08:27:47 2023-08-03 23:59:00 Hospital Encounter Morgan Kali [facility] 1.2840.114 350.1.13.10 4.2.7.2.686 [id number] [facility] 2023-06-29 09:30:00 2023-06-29 09:59:31 Outpatient R KALI MORGAN SHINJAmaury [facility] [id number] [facility] 2023-06-29 09:30:00 2023-06-29 09:59:31 [facility] 1.2840.114 350.1.13.10 4.2.7.2.686 [id number] [facility] 2023-06-01 00:00:00 2023-06-01 00:00:00 Orders Only Doctor Unassigned, [place] [facility] 1.2840.114 350.1.13.10 4.2.7.2.686 [id number] [facility] 2023-05-04 09:42:00 2023-05-04 23:59:00 Outpatient R RADIOLOGY [facility] [id number] [facility] 2023-05-04 09:42:00 2023-05-04 23:59:00 Hospital Encounter Radiology [facility] 1.2840.114 350.1.13.10 4.2.7.2.686 [id number] [facility] 2023-04-28 00:00:00 2023-04-28 00:00:00 Outpatient R RADIOLOGY [facility] [id number] [facility] 2023-04-02 08:57:52 2023-04-02 23:59:00 Hospital Encounter Radiology [facility] 1.2840.114 350.1.13.10 4.2.7.2.686 [id number] [facility] 2023-04-02 00:00:00 2023-04-02 23:59:00 Outpatient R RADIOLOGY [facility] [id number] [facility] 2023-02-14 05:40:00 2023-02-14 05:40:00 Outpatient Rut Roberto [facility] [id number] [facility] 2022-06-21 06:43:00 2022-06-22 14:24:00 Inpatient Rut Roberto [facility] MEDI.01 [id number] [facility] 2022-02-15 06:09:00 2022-02-16 14:00:00 Inpatient Jj Sheehan [facility] [id number] Results Test Description Test Time Test Comments Results Result Co mments Source [facility] VW [id number] 20:04:52XR FOOT 3+ VW LEFT HISTORY: ?foot pain COMPARISON: ?none available. Findings:Osseous structures aredemineralized. . Pes cavus deformity. Mild first MTPosteoarthrosis.There is soft tissue edema. ?[facility] Met[facility] Panel (04107)2023-11-13 20:03:53* Test Item Value Reference Range Interpretation Comme nts NA (test code = 7632275388) 137 mmol/L 135-145 K (test code = 9284388880) 4.0 mmol/L 3.5-5.0 CL (test code = 3365768682) 98 mmol/L 98-108 CO2 TOTAL (test code = 6072872562) 31 mmol/L 23-31 AGAP (test code = 5324592152) 8 2-16 BUN (test code = 8274118048) 32 mg/dL 7-23 H GLUCOSE (test code = 0939699370) 119 mg/dL 70-110 H CREATININE (test code = 2160-0) 1.10 mg/dL 0.50-1.04 H TOTAL BILI (test code = 4637997806) 1.3 mg/dL 0.1-1.1 H CALCIUM (test code = 8518313396) 11.8 mg/dL 8.6-10.6 H T PROTEIN (test code = 6950646149) 7.7 g/dL 6.3-8.2 ALBUMIN (test code = 5355796062) 4.0 g/dL 3.5-5.0 ALK PHOS (test code = 1768347071) 137 U/L 34-122 H ALTv (test code = 1742-6) 20 U/L 5-35 AST(SGOT) (test code = 2203879599) 89 U/L 13-40 H eGFR (test code = 17539-1) 51.2 mL/min/1.73m2 CKD-EPI eGFR (2020). Assuming creatinine has been stable day-to-day for at least three months, the eGFR indicates Category G3a (45 - 59 mL/min/1.73 m2) Lab Interpretation (test code = 23582-8) Abnormal [facility]24-[facility]-19 20:03:53* Test Item Value Reference Range Interpretation Comme nts MAGNESIUM (test code = 4338057542) 2.2 mg/dL 1.7-2.4 Lab Interpretation (test cod e = 61615-2) Normal [facility]2024-07-19 20:03:52* Test Item Value Reference Range Interpretation Comme nts LIPASE (test code = 5026627030) 116 U/L 0-220 Lab Interpretation (test cod e = 51560-1) Normal [facility]ano[facility]bc with [id number] 19:49:34* Test Item Value Reference Range Interpretation Comme nts WBC (test code = 6690-2) 12.00 4.30-11.10 H RBC (test code = 789-8) 5.27 3.93-5.25 H HGB (test code = 718-7) 15.6 g/dL 11.6-15.0 H HCT (test code = 4544-3) 49.9 % 35.7-45.2 H MCV (test code = 787-2) 94.7 fL 80.6-95.5 MCH (test code = 785-6) 29.6 pg 25.9-32.8 MCHC (test code = 786-4) 31.3 g/dL 31.6-35.1 L RDW-SD (test code = 17952-1) 52.7 fL 39.0-49.9 H RDW-CV (test code = 788-0) 15.1 % 12.0-15.5 PLT (test code = 777-3) 354 166-358 MPV (test code = 07524-2) 10.7 fL 9.5-12.9 NRBC/100 WBC (test code = 2533888819) 0.0 0.0-10.0 NRBC x10^3 (test code = 5035022769) See_Comment [Automated messa ge] The system which generated this result transmitted reference range: 10*3/?L. The reference range was not used to interpret this result as normal/abnormal. GRAN MAT (NEUT) % (test code = 770-8) 81.1 % IMM GRAN % (test code = 2708044760) 0.90 % LYMPH % (test code = 736-9) 7.4 % MONO % (test code = 5905-5) 10.0 % EOS % (test code = 713-8) 0.1 % BASO % (test code = 706-2) 0.5 % GRAN MAT x10^3(ANC) (test code = 5317624428) 9.73 10*3/uL 1.88-7.09 H IMM GRAN x10^3 (test code = 1802215298) 0.11 10*3/uL 0.00-0.06 H LYMPH x10^3 (test code = 731-0) 0.89 10*3/uL 1.32-3.29 L MONO x10^3 (test code = 742-7) 1.20 10*3/uL 0.33-0.92 H EOS x10^3 (test code = 711-2) 0.03-0.39 L BASO x10^3 (test code = 704-7) 0.06 10*3/uL 0.01-0.07 Lab Interpretation (test code = 31041-8) Abnormal [facility]anoCOAGUL[facility] TIME [id number] 07:37:00 * Test Item Value Reference Range Interpretation Comme nts COAGULATION TIME ACTIVATED ( test code = ACT) 422 SEC 74-125 H PROTHROMBIN [id number] 06:50:00* Test Item Value Reference Range Interpretation [...] Infarction (to prevent recurrent infarct). THROMBOPLASTIN TIME [id number] 06:50:00* Test Item Value Reference Range Interpretation Comme nts THROMBOPLASTIN TIME PARTIAL (test code = PTT) 34.7 SECONDS 26-35 N COMPREHENSIVE METABOLIC [id number] 06:48:00* Test Item Value Reference Range Interpretation [...] = LDL) 49 MG/DL 0-129 N <100 RQCRQAC92 0 - 129 NEAR OPTIMAL/ABOVE [id number] - 159 TEXNBTNQWI064 - 189 HIGH>OR= 190 VERY HIGHNOTE THAT GUIDELINES ARE PROVIDED BY NATIONAL CHOLESTEROLEDUCATION PROGRAM ADULT TREATMENT PANEL III LDL/HDL (test code = LDL/HDL) 0.87 Ratio See_Comment L [Automated messa ge] The system which generated this result transmitted reference range: 1.48-3.22 Avg. The reference range was not used to interpret this result as normal/abnormal. [id number] 06:48:00* Test Item Value Reference Range Interpretation Comme nts MAGNESIUM (test code = MAG) 2.2 MG/DL 1.8-2.4 N CBC W/AUTO [id number] 06:31:00* Test Item Value Reference Range Interpretation [...] = MDIFF) NO DIFF/SCN CRITERIA BASIC METABOLIC [id number] 05:02:00* Test Item Value Reference Range Interpretation [...] CA) 8.8 MG/DL 8.5-10.1 N CBC W/AUTO [id number] 04:52:00* Test Item Value Reference Range Interpretation [...] = MDIFF) NO DIFF/SCN CRITERIA COAGULATION TIME [id number] 12:18:00* Test Item Value Reference Range Interpretation Comme nts COAGULATION TIME ACTIVATED ( test code = ACT) 288 SECistat 74-125 H CBC W/AUTO [id number] 08:32:00* Test Item Value Reference Range Interpretation [...] = LDL) 57 MG/DL 0-129 N <100 ZDCCWHO01 0 - 129 NEAR OPTIMAL/ABOVE AGRIVGC597 - 159 AIKEUHWRBZ687 - 189 HIGH>OR= 190 VERY HIGHNOTE THAT GUIDELINES ARE PROVIDED BY NATIONAL CHOLESTEROLEDUCATION PROGRAM ADULT TREATMENT PANEL III LDL/HDL (test code = LDL/HDL) 0.66 Ratio See_Comment L [Automated WoofRadara ge] The system which generated this result transmitted reference range: 1.48-3.22 Avg. The reference range was not used to interpret this result as normal/abnormal. [id number] 08:11:00* Test Item Value Reference Range Interpretation Comme nts MAGNESIUM (test code = MAG) 2.1 MG/DL 1.8-2.4 N COVID 19 INHOUSE [id number] 08:11:00* Test Item Value Reference Range Interpretation Comme nts COVID 19 INHOUSE AG (test code = ZURJV14ZOCF) NEGATIVE Negative Per [facility] , negative results should be treated aspresumptive [...] and symptoms consistent with COVID-19. COMPREHENSIVE METABOLIC [id number] 08:11:00* Test Item Value Reference Range Interpretation [...] = ALKP) 75 Unit/L 45-117 N PROTHROMBIN [id number] 07:56:00* Test Item Value Reference Range Interpretation [...] Infarction (to prevent recurrent infarct). THROMBOPLASTIN TIME [id number] 07:56:00* Test Item Value Reference Range Interpretation Comme nts THROMBOPLASTIN TIME PARTIAL (test code = PTT) 30.6 SECONDS 26-35 N BASIC METABOLIC [id number] 05:22:00* Test Item Value Reference Range Interpretation [...] CA) 8.2 MG/DL 8.4-10.2 L CBC W/AUTO [id number] 04:50:00* Test Item Value Reference Range Interpretation [...] code = NRBC#) 0.00 K/mm3 0.0-0.1 N [id number] 11:48:00* Test Item Value Reference Range Interpretation Comme nts ACT-ISTAT (test code = ACTI) 289 SEC 74-137 H [id number] 08:36:00* Test Item Value Reference Range Interpretation Comme nts MAGNESIUM (test code = MAG) 1.7 MG/DL 1.6-2.3 N BASIC METABOLIC [id number] 08:36:00* Test Item Value Reference Range Interpretation [...] Test Item Value Reference Range Interpretation Comme [facility] TRIGLYCERIDES (test code = TRIG) 68 MG/DL [...] HIGH.........160-189 mg/dL VERY HIGH.........>/= 190 mg/dL PROTHROMBIN [id number] 07:54:00* Test Item Value Reference Range Interpretation Comme [facility] PROTHROMBIN TIME PATIENT (test code = PTP) [...] recurrent systemic embolism. 3.0 - 4.5 PTT [id number] 07:54:00* Test Item Value Reference Range Interpretation Comme [facility] PTT ACTIVATED (test code = APTT) 34.1 SECONDS 26.2-35.4 N CBC W/AUTO [id number] 07:36:00* Test Item Value Reference Range Interpretation [...] K/mm3 0.0-0.1 N COVID 19 Asymptomatic IH [id number] 05:47:00* Test Item Value Reference Range Interpretation [...] the sample." Notes Date/Time Note Provider Source 2023-11-13 18:44:48 [id number]:44:48 Pt given printed and verbal discharge instructions regarding uti, dehydration, encouraged hydration.2 Prescriptions sent to pharmacy.Discussed antibiotic therapy and to take until all completed unless adverse reaction occurs - if occurs, discontinue medication and follow up with pcp/seek medical attention.Pt verbalized understanding of instructions, pt awake alert oriented, resp reg unlabored, skin w/d, color appropriate for race, moves all ext well,pt encouraged to follow up with pcp.Advised to seek medical attention for new/prolonged/worsening of symptoms,Symptoms improved.No adverse reaction to meds given in ER noted upon discharge.PIV d'cd, dressing to site, catheter in tact.Awake, alert oriented, resp reg unlabored, skin w/d, pt leaving via wheelchair, in no apparent distress. 01650-3Rvrnnshnh department RfpkPQ3208-87-33A54:46:24[facility] NoteTXT1.2.840.336853.1.13.104.2.7.2. 969709|[id number] for patient hqnp52193-9KizzGRPHTLOELAFIdqxsuqdo C-CDA narrative [id number] M Herrera RN[id number] RAHSOFXTEWHVSOLMUYPLI8899-78-83H02:46 :241.2.840.673325.1.72.3.15|1.2.840.1 [id number] 0 Nancy Bass RN [facility] 2023-11-13 12:19:27 0247-52-27P82:19:27 Angelica Roy is a 78 year old female pt states she has multiple complaints, states she wants admitted because she has bone spurs and it hurts to walk, states she has cancer but not sure what kind and missed her ct appt yesterday so wants to get a ct, also states vomited yesterday and states had burning urination for 3 months, 00472-8Qtoxxvqqr department Triage sxkdYD8709-95-83L31:22:32[facility] Triage noteTXT1.2.840.454133.1.13.104.2.7.2. 829015|[id number] for patient oegi21257-8Rsiwuzuee department NoteLNNARRATIVEFormatted C-CDA narrative [id number] M. Barton RNUT[address] [id number] TQRWIAYPHVQKHOTGUZQKZ6334-91-04T59:22 :321.2.840.603617.1.72.3.15|1.2.840.1 [id number] 4 Nancy Singleton RN [facility] 2023-11-13 11:04:03 0928-10-31A55:04:03 Spoke with patient. Patient stating that that she has pain in the bladder area as well as her back. She's had symptoms of a UTI. She also reports that she has knots on her back the size of a baseball. She is concerned about these lumps that they may be some kind of cancer. They are painful but not has painful as the UTI symptoms. She is not mobile due to bone spurs. Her daughter was with her but just went to [facility] to steel pickler a prescription and should be back soon. She states her breathing is "not so good" but not any worse than usual. She missed her CT scan yesterday because her drivers didn't show up.Patient is a little forgetful on the phone but sounds alert and oriented. She is able to speak in full sentences without issue. Recommended that patient go to the ER due to concerning symptoms of UTI, including significant back pain. She is agreeable and said that her Daughter could taker when she gets back from [facility]. 87669-5Hqefbltec encounter HjxdMS7946-83-25J05:15:02Telephone encounter NoteTXT1.2.840.548158.1.13.104.2.7.2. 832361|[id number] for patient ohcy49832-3DmrgWBFMXEGSSJUKiymypsfq C-CDA narrative dcdf298682623Kinf Lori [address] XitlBkhghdvnqVtaiqztwvTNEG1582342638X JGJGITVXWKLTPROVWZIMH7850-53-60L53:15 :021.2.840.787049.1.72.3.15|1.2.840.1 54594.1.13.104.2.7.2.727879_[id number] 9 Betzy Sandoval RN [facility] 2023-11-13 10:24:36 6058-28-94G15:24:36 Angelica Roy is a 78 year old female calling and states she can't get up and do anything and not getting help from other doctors and asking to speak with MD Morgan and states she was told by doctor to call her if she needed anything.Pt states she has a severe UTI, big knots on her back, and bone spurs real bad in left foot.409 392 0289 55121-7Gqvvedpyg encounter CteiSK5819-99-25C87:26:36Telephone encounter NoteTXT1.2.840.084878.1.13.104.2.7.2. 830203|[id number] for patient kthg62515-0EvyfHVZYTHRXZFEEemlfyzgw C-CDA narrative Ga[address]eng[address] StreetNufhIiykxpqfeLljdbyernQNCW5081109224W LTOJHQGNGXSMGTIUNQTXQ1087-44-80V93:26 :361.2.840.271562.1.72.3.15|1.2.840.1 49004.1.13.104.2.7.2.727879_214946202 5 [facility] 2023-10-13 09:30:00 3189-67-88C31:30:00Addended by: KALI MORGAN DO on: 10/13/2023 10:11 AMModules accepted: Orders 51432-1Xnldqhol VnratjrbFU3520-78-36U68:11:00Addendum DocumentTXT1.2.840.154851.1.13.104.2. 7.2.631383|[id number] for patient jwkm56328-8ZlwuELFPAZTQUIGPmijuqxpa C-CDA narrative [address] Peterson StreetTXTX7755577555U AQPHTQMLNRHQIUPIOYSVL6629-58-23W18:11 :001.2.840.781705.1.72.3.15|1.20.1 73668.1.13.104.2.7.2.727879_212600599 6 [facility] 2023-08-25 13:33:32 3444-41-91R28:33:32 Images from the original note were not included.Patient notified of results. She verbalized understanding of results/recommendations via teach back. No further questions or concerns at this time.Kali Morgan DO P Pulmonary NursePlease let patient know PFT did show evidence of moderate COPD. Would continue with current plan of care. 89230-5Cybufdwrb encounter KpzpYO0401-02-70K74:34:00Telephone encounter NoteTXT1.2.840.628727.1.13.104.2.7.2. 397685|[id number] for patient zywj26938-8EjitTCOLUCADWLRMuefyoxiw C-CDA narrative text[address] SdtcOjzlveeesHebprqnmiCXLJ3914657900D UYPMFBJREWFJPSYCNAYAX4168-07-82W48:34 :001.2.840.061004.1.72.3.15|1.2.840.1 28514.1.13.104.2.7.2.727879_208719413 8 [facility] 2023-02-14 08:23:00 HG0940471548yrfMDzYnReYz/82REyDrZJ/zP ByJtQUjVHrYXsB3iHFpGFhvTMdFZU6oc/c6Nt cv1201-75-13W45:23:460508-[address] [address] PATIENT NAME: ANGELICA ROY ADMIT DATE: 02/14/23ACCOUNT NO: [id number] ROOM NO: AGE: 77 REPORT TYPE: CARDIAC CATHETERIZATION REPORT SEX: F ADMITTING PHYSICIAN: ATTENDING PHYSICIAN: Rut Jimenez MD PROCEDURE DATE: 02/14/2023 CARDIOVASCULAR PROCEDURE BOX PRINTING MACHINE OPERATOR: Rut Jimenez MD PREOPERATIVE DIAGNOSIS: POSTOPERATIVE DIAGNOSIS: SURGEON: Kenrick Jimenez MD SUMMER SESSIONS DIRECTOR: TITLE OF PROCEDURES:1. Abdominal and bilateral selective [...] femoral artery area for local anesthesia. A 6-[place] sheath was placed in the left common [...] pigtail and the NaviCross catheter over the [place] Advantage wire. Then, theSFA is occluded at the ostium and there is minimal distal flow observed using the NaviCross and the [place] Advantage. I was able to cross the SFA completely and put the NaviCross at the popliteal and take angiograms, which showed 3-vessel runoff with small diffuse disease. Then, I exchanged the [place] Advantage with an [employer] wire of 0.018 and did laser atherectomy of the entire SFA and the right popliteal with the Where's Up laser and then after that, atthe DCP with popliteal and distal SFA, with a DNA Guide IN.PACT 200 x 130 and then used [...] Dictated: 02/14/2023 08:23:27Date Transcribed: 02/14/2023 09:09:52SVENUS/NORRIS/RSHJob #: [id number] ID: [id number] by Rut Jimenez MD On 02/14/2023 01:05:22 PM at 0105 PATIENT NAME: ANGELICA ROY hwyw8675-53-41Y75:09:00L.CTS66123178- 0007AVAvailable for patient lkjhSUIHNQKETKMHUE6492-60-68J92:05:53 [facility] 2023-02-14 06:07:00 OI2204389968Xe3+Sl7K4udCeR68eQE0500Gv O4X4M5XRkgKOyaiGyL2iywa6mC3iS70xcC0nz Gh2119-96-27U98:07:755917-8108 [facility] [address] [place] [address] PATIENT NAME: ANGELICA ROY ADMIT DATE: 02/14/23ACCOUNT NO: [id number] ROOM NO: AGE: 77 REPORT TYPE: eELECTROCARDIOGRAM SEX: F ADMITTING PHYSICIAN: ATTENDING PHYSICIAN: Rut Jimenez MD Order:[id number] Reason : CAD Test Date/Time Stamp:[facility] Feb 14 2023 06:07:06Blood Pressure : / [...] JIMENEZ at 0825 PATIENT NAME: ANGELICA ROY .CPS2 8470611-0953FJUicodgnmj for patient joatRVDHUHMEZNOKER1929-24-75Y91:25:45 [facility] 2023-02-13 07:08:00 MA1903456190oWldEkBYJf6b4/ovnVPBYC9Bh +35JDCkk1fq7zxE+flUPfCCy3ryuNL1y29e5A Ie8165-04-27C70:08:058802-0598 [facility] [address] [place] [address] PATIENT NAME: ANGELICA ROY ADMIT DATE: 02/14/23ACCOUNT NO: [id number] ROOM NO: AGE: 77 REPORT TYPE: PREOP HP REPORT SEX: F ADMITTING PHYSICIAN: ATTENDING PHYSICIAN: Rut Jimenez MD Cardiology ADMISSION DATE: 02/14/2023 07:00:00 BOX PRINTING MACHINE OPERATOR: Rut Jimenez MD REASON FOR ADMISSION: Symptomatic peripheral arterial disease for angiography and possible revascularization. HISTORY OF PRESENT ILLNESS: Angelica is a 77-year-old lady with known atherosclerotic cardiovascular disease and multiple cardiovascular risk factors,who was last at [facility] on 06/21/2022. Please see last dictation for [...] Dictated: 02/13/2023 07:08:50Date Transcribed: 02/13/2023 09:47:58SFD/SREJob #: [id number] ID: [id number] by Rut Jimenez MD On 02/16/2023 06:21:44 PM PATIENT NAME: ANGELICA ROY at 0621 PATIENT NAME: ANGELICA ROY and physical ypdpkqnxwkr6611-27-06A78:47:00L.HIM20 311458-3741GQKywdvptos for patient rvxwROPWNUVTQTKIRG4703-82-77H12:22:07 [facility] 2022-06-22 09:49:00 [id number]2 fu7NazuhpKQ7wlDxCkmB+F5mnMQ/ZTXl7t2P/ Oq0191-08-10G09:49:00 [facility] ([facility])Hospitalist Discharge SummaryREPORT#:[id number] REPORT STATUS: SignedDATE:06/22/22 TIME:09 PATIENT: ANGELICA ROY UNIT #: [id number]#: [id number] [address] AGE: 77 SEX: F ATTEND: [...] Temp 98.1 06/22 111 Pulse 80 06/22 111 Resp 14 06/22 111 FiO2 21 06/21 [...] Jimenez MD Cardiology at 2004 RPT #: [id number] OF REPORT DSDischarge kdsidcq3137-22-91P51:49:00L.NQXU42553 226-0036AVAvailable for patient wffoALHTDAHNZGHNIW6975-83-46Y72:04:50 [facility] 2022-06-21 18:08:00 LN3353483778+hLzhq23f9UL+PGg7pvuLy8rd HkjBjVXXfemxy9Q1hg7K/rCrFvFK3b1Yczvef yU7418-68-39Z59:08:00 [facility] PhysicalREPORT#:[id number] REPORT STATUS: SignedDATE:06/21/22 TIME:1808 PATIENT: ANGELICA ROY UNIT #: [id number]#: [id number] [address] AGE: 77 SEX: F ATTEND: Rut Jimenez MD CardiologyADM AUTHOR: Noman Gonzalez MD * ALL edits or amendments must be made on the electronic/computer document * History of Present Illness HPIChief complaint:PAD s/p [facility] HPI:77 yo female with past medical history of severe bilateral symptomatic PAD hyperlipidemia, COPD, lumbar disc disease, lumbar radiculopathy, neuropathy and GERD who was admitted in [facility] for PAD and was found to have [...] Result Date Time Pulse Ox 95 06/21 1644 B/P 143/69 06/21 1644 B/P Mean 93.6 06/21 1644 O2 Delivery Room air 06/21 1643 Temp 97.9 06/21 164 Pulse 79 06/21 1644 Resp 14 06/21 1644 Patient Weight and BMI Weight (kg): 63.600 [...] (0.8 - 1.2 INR Unit) 0.87 PTT (Perlita) (26 - 35 SECONDS) 30.6 PT Patient/Control [...] % (Auto) (20.5 - 51.1 %) 29.9 Randall % (Auto) (1.7 - 9.3 %) 10.8 H Eos % (Auto) (0.0 - 6.0 %) 1.8 Baso % (Auto) (0.0 - 2.0 %) 1.0 Neut # (Auto) (1.8 - 7.6 K/mm3) 3.5 Lymph # (Auto) (0.6 - 3.2 K/mm3) 1.9 Randall # (Auto) (0.3 - 1.1 K/mm3) 0.7 [...] time used was 32 minutes at 0837 RPT #: [id number] OF REPORT HPHistory and physical aogpkjchzfo1584-55-89U70:08:00L.PDOC2 8314677-0254NUOvmahfnpb for patient ggtwFXYZFEIGLWOUBW3786-22-61D95:37:20 [facility] 2022-06-21 13:13:00 HT28077034666YrwAtLTViwG8Fieg9ifuM0vX tKWwZDwH60nZFQBZRL28C/k181ma3xLYk2JZF SG3930-32-29A88:13:614153-5839 [facility] [address] [place] [address] PATIENT NAME: ANGELICA ROY ADMIT DATE: 06/21/22ACCOUNT NO: [id number] ROOM NO: L.S215 AGE: 77 REPORT TYPE: CARDIAC CATHETERIZATION REPORT SEX: F ADMITTING PHYSICIAN: Jose Mark MD ATTENDING PHYSICIAN: Rut Jimenez MD PROCEDURE DATE: 06/21/2022 BOX PRINTING MACHINE OPERATOR: Rut Jimenez MD INDICATION FOR PROCEDURE: Disabling [...] femoral artery area for local anesthesia. A 6-[place] sheath was placed in the left common [...] adequate ACT, using the pigtail and the [place] Advantage wire, I was able to use [...] Dictated: 06/21/2022 13:13:26Date Transcribed: 06/21/2022 19:12:41SFD/SUBJob #: [id number] ID: [id number] by Rut Jimenez MD On 06/21/2022 08:29:52 PM at 0829 PATIENT NAME: ANGELICA ROY nyko6630-62-91V06:12:00L.WWJ25450872- 0024AVAvailable for patient mshiZYDHASAWUIPIUP0223-54-97Z88:30:30 [facility] 2022-06-21 07:32:00 SA514425921995v1JFc3eRP/W30XL5QAnSeWE Zq7nIzvdjx7xtEDSd9/Qt5Du4S6KdfDnNIziB 6s3610-14-07J21:32:844101-[address] [address] PATIENT NAME: ANGELICA ROY ADMIT DATE: 06/21/22ACCOUNT NO: [id number] ROOM NO: AGE: 77 REPORT TYPE: eELECTROCARDIOGRAM SEX: F ADMITTING PHYSICIAN: ATTENDING PHYSICIAN: Rut Jimenez MD Order:[id number] Reason : CAD Test Date/Time Stamp:[facility] Jun 21 2022 07:32:55Blood Pressure : / [...] JIMENEZ at 1127 PATIENT NAME: ANGELICA ROY .CPS2 7871851-9271NYMwuliwgmq for patient nmamFTLQBPPNWFZIGE5285-46-03U57:31:31 [facility] 2022-06-20 07:31:00 EL7023496368wf5FBiv6dkjH2Wre20QrEoHFN 0O0fIakzM9KxiDgbJANJqOecUmIdzDQ4/aqzT 0J1468-06-16X10:31:437565-[address] [address] PATIENT NAME: ANGELICA ROY ADMIT DATE: ACCOUNT NO: [id number] ROOM NO: AGE: 77 REPORT TYPE: HISTORY AND PHYSICAL SEX: F ADMITTING PHYSICIAN: ATTENDING PHYSICIAN: Rut Jimenez MD Cardiology PATIENT NAME: ANGELICA ROY ADMIT DATE:06/21/2022DMISSION DATE: 06/21/2022 08:15:00 BOX PRINTING MACHINE OPERATOR: Rut Jimenez M.D. REASON FOR ADMISSION: Symptomatic peripheral arterial disease for abdominal andbilateral selective iliofemoral angiograms and revascularization of her rightlower extremity. HISTORY OF PRESENT ILLNESS: Angelica is a 77-year-old lady with documented severebilateral symptomatic peripheral arterial disease. She was last at [facility] on 02/15/2022, at that time, she was found to have mildaortoiliac disease and 100% occlusion of both SFAs with 3-vessel runoffbilaterally. The patient underwent FINGER COBBLER and drug-coated balloon and stenting ofthe left [...] Aspirin 81 mg daily, inhaler, rosuvastatin, albuterol, txxjxhufisv47 mg daily, pantoprazole 40 mg daily. SOCIAL [...] MD Date Dictated: 06/20/2022 07:31:26Date Transcribed: 06/20/2022 08:14:59SFD/SUDJob #: [id number] ID: [id number] and Edited by Rut Jimenez MD On 06/20/22 12:51:37 PM PATIENT NAME: ANGELICA ROY at 1253 PATIENT NAME: ANGELICA ROY and physical uvxdpmekioe4445-83-33A61:14:00L.HIM20 855780-4607CHYyreyazuk for patient nydtFBDEJWFIVKCWAM7327-73-70S04:54:28 [facility] 2022-02-16 12:50:00 Z56935342752mboBwatjH46TWymOjb47bPnby vSaZ65JlMYGis7z/J2W8AtkSmY1ZggXbD6cCg ae4889-47-48O41:50:00 [facility] SummaryREPORT#:[id number] REPORT STATUS: SignedDATE:02/16/22 TIME: 1250 PATIENT: ANGELICA ROY UNIT #: [id number]#: [id number] [facility]GE[facility] 76 SEX: F ATTEND: Jj Patel [facility] AUTHOR: Eitan Hale MD R1 * ALL [...] Documented: Result Date Time Temp 36.8 02/16 113 Pulse Ox 92 02/16 629 B/P 107/51 [...] flank pain, no urinary catheterRectal: deferredExtremities: no edemaNeuro/MEDICAL FIELD REPRESENTATIVE: alert, oriented X 3, CNII-XII intactSkin: dry, intactWound/incision: Site Condition: dressing clean dryPsychiatry: normal affect, normal judgment/insight, normal mood ResultsFindings/Data:Laboratory Tests: 02/16 02/16 6759 0418 Chemistry Sodium (137 - 145 MMOL/L) [...] (Auto) (14 - 44 %) 8.8 L Randall % (Auto) (4 - 13 %) 5.0 Eos % (Auto) (0 - 6 %) 0.0 Baso % (Auto) (0 - 2 %) 0.2 Neut # (Auto) (2.0 - 7.6 K/mm3) 10.98 H Lymph # (Auto) (1.0 - 3.8 K/mm3) 1.13 Randall # (Auto) (0.1 - 0.8 K/mm3) 0.64 [...] 30 minutes at 1319 at 0829 RPT #:[id number] OF REPORTDSDischarge miycxul2072-80-77I71:50:00Z.SDHI17514 023-0165AVAvailable for patient ifmmLNMQXFGFLDNVIY1048-42-42H43:21:03 [facility] 2022-02-16 07:00:00 [id number]Mo/O6kwf1 rMRKy91cSrWsQ6RzxdSYLHOKeSqQdmpVxo6TT pa9379-18-01U73:00:00 [facility] ([facility]Card[facility] Progress NoteREPORT#:[id number] REPORT STATUS: SignedDATE:02/16/22 TIME: 0700 PATIENT: ANGELICA ROY UNIT #: [id number]#: [id number] [facility] [birth year] AGE: 76 SEX: F ATTEND: Jj [...] O2 Flow FiO2 Mean Ox Delivery Rate 10/23 0629 69 107/51 70.1 92 02/16 0405 97.9 [...] LE assessment: no edemaMusculoskeletal: full range of motionNeuro/MEDICAL FIELD REPRESENTATIVE: alert, oriented X 3, CN II-XII intactSkin: dry, intactWound/incision: Site condition: dressing clean dryPsychiatry: normal affect, normal judgment/insight, normal mood ResultsFindings/Data:Laboratory Tests 02/16 02/15 3767 0980 Chemistry Sodium (137 - 145 MMOL/L) 137 [...] (14 - 44 %) 8.8 L 23.2 Randall % (Auto) (4 - 13 %) 5.0 7.7 Eos % (Auto) (0 - 6 %) 0.0 1.4 Baso % (Auto) (0 - 2 %) 0.2 0.8 Neut # (Auto) (2.0 - 7.6 K/mm3) 10.98 H 3.45 Lymph # (Auto) (1.0 - 3.8 K/mm3) 1.13 1.20 Randall # (Auto) (0.1 - 0.8 K/mm3) 0.64 0.40 Eos # (Auto) (0.0 - 0.2 K/mm3) 0.00 0.07 Baso # (Auto) (0.0 - 0.2 K/mm3) 0.02 0.04 Immature Gran % (0.0 - 2.0 %) 0.3 0.2 Nucleated RBC % (0 - 1.0 %) 0.0 0.0 Nucleated RBCs # (Man) (0.0 - 0.1 K/mm3) 0.00 0.00 Laboratory Tests 02/16 724 Chemistry Magnesium (1.6 - 2.3 MG/DL) 1.7 Laboratory Tests 02/16 724 Coagulation APTT (26.2 - 35.4 SECONDS) 34.1 Diagnosis, Assessment Plan Free Text DxA P NotesFree Text DxA P Notes:IMP: PVD. Occluded bilateral SFAs - s/p FINGER COBBLER Left SFA. PLAN: d/c home. f/u with Dr. Jimenez. at 1501 RPT #:[id number] OF REPORTPRProgress zkau2029-46-71Q93:00:00Z.OYQZ00550671 -0052AVAvailable for patient cowoQUELSENZGEXXCF3714-18-93W93:01:36 [facility] 2022-02-15 16:26:00 [id number]SUdTL jKmhyvDGEvqLZptcnuXRySxw28UyydlIO1HhX Ja7558-76-49Y17:26:00 [facility] ([facility])History Physical - AdultREPORT#:[id number] REPORT STATUS: SignedDATE:02/15/22 TIME: 1625 PATIENT: ANGELIAC ROY UNIT #: [id number]#: [id number] [facility] [birth year] AGE: 76 SEX: F ATTEND: Jj Patel AUTHOR: Sam Sauceda MD * ALL edits [...] all, no pedal edemaMusculoskeletal: full range of motionNeuro/MEDICAL FIELD REPRESENTATIVE: alert, oriented X 3, CNII-XII grossly intactPsychiatry: [...] % (Auto) (14 - 44 %) 23.2 Randall % (Auto) (4 - 13 %) 7.7 Eos % (Auto) (0 - 6 %) 1.4 Baso % (Auto) (0 - 2 %) 0.8 Neut # (Auto) (2.0 - 7.6 K/mm3) 3.45 Lymph # (Auto) (1.0 - 3.8 K/mm3) 1.20 Randall # (Auto) (0.1 - 0.8 K/mm3) 0.40 [...] intake case d/w pt RN at 0828 [facility] #:[id number] OF REPORTHPHistory and physical ivlsysxsppg7676-68-89F75:26:00Z.PDOC2 9415296-0348GKVvbggrqkl for patient alfhYWKHLBUOSFHRMT4342-44-37F58:28:24 [facility] 2022-02-15 12:25:00 D35562513694+1sztf4VNWH2DWgroqEr7oWbF Ztt8L2rA1/2oh2LdbhUwAjKxrQnxDbtuNKBaX dA5664-08-86B90:25:551781-7998 [place] [address] PATIENT NAME: O'PRY,ANGELICA JACKIE ADMIT DATE: 02/15/22ACCOUNT NO: [id number] ROOM NO: AGE: 76 REPORT TYPE: CARDIAC CATHETERIZATION REPORT SEX: F ADMITTING PHYSICIAN: ATTENDING PHYSICIAN:Rut Jimenez MD Cardiology PROCEDURE DATE: 02/15/2022 BOX PRINTING MACHINE OPERATOR: Rut Jimenez M.D. INDICATION FOR THE PROCEDURE: [...] femoral artery area for local anesthesia. A 6-[place] sheath was placed in the right common [...] So using a sheath that is [employer] 6-[place]er and before thatusing the [place] Advantage wire and the pigtail, I was [...] the patient was already loaded with Plavix. [place] catheter was used and the [place] Advantage wire and I was able to cross relatively easily to the distal vessels. Then, I placed the [place] in the popliteal and documented 3-vessel runoff [...] Dictated: 02/15/2022 12:25:34Date Transcribed: 02/15/2022 13:11:31SD/Beronica #: [id number] ID: [id number] by Rut Jimenez MD On 02/15/2022 01:51:31 PM at 0151 PATIENT NAME: ANGELICA ROY ixzr7753-27-98F29:11:00Z.EJD71654751- 0015AVAvailable for patient bcdfLONOWZZHKJRLPH3988-03-58R61:52:11 [facility] 06:57:00 T82544929201ujZ3aHIndTTxFBEVviGToUHqh +qHbHCligGko8VFMulin1T6gkCYwQf32llL0A EQ1252-82-18D06:57:022849-[address] [address] PATIENT NAME: ANGELICA ROY ADMIT DATE: 02/15/22ACCOUNT NO: [id number] ROOM NO: AGE: 76 REPORT TYPE: ELECTROCARDIOGRAM SEX: F ADMITTING PHYSICIAN: ATTENDING PHYSICIAN:Rut Jimenez MD Cardiology Order:[id number] Reason : PRE-OP Test Date/Time Stamp:ThuFeb 15 2022 06:57:35Blood Pressure : / mmHGVent. [...] JIMENEZ at 0906 PATIENT NAME: ANGELICA ROY .CPS2 6415558-2448ZETgujbfwkv for patient qyfnQFEARPYIPTOIWJ1045-07-76L64:07:24 [facility] 2022-02-15 06:57:00 [id number]ue11Kpy zBHi4Mukxd+PRaqwkp1W5mlNotkm7Pg9jimOl 8u1906-00-50B12:57:062344-[address] [address] PATIENT NAME: ANGELICA ROY ADMIT DATE: 02/15/22ACCOUNT NO: [id number] ROOM NO: Z.361 AGE: 76 REPORT TYPE: ELECTROCARDIOGRAM SEX: F ADMITTING PHYSICIAN:Jj Patel MD ATTENDING PHYSICIAN:Jj Patel MD Order:[id number] Reason : PRE-OP Test Date/Time Stamp:[facility] Feb 15 2022 06:57:35Blood Pressure : / [...] JIMENEZ at 1224 PATIENT NAME: ANGELICA ROY .CPS2 5324255-9256YOWfbgjicmh for patient yriwBLAMDXEKPMCSDX8290-48-96P03:25:44 [facility] 2022-02-14 07:04:00 L60001731449rDyJH49kB1kbAbctPkTdSl2Pm 3mdXAPQPRSa8F2uDpNusNzucbdMFX8z6ssT5T W09823-21-17I14:04:379871-1976 [place] [address] PATIENT NAME: ANGELICA ROY ADMIT DATE: ACCOUNT NO: [id number] ROOM NO: AGE: 76 REPORT TYPE: HISTORY AND PHYSICAL SEX: F ADMITTING PHYSICIAN: ATTENDING PHYSICIAN:Rut Jimenez MD Cardiology PATIENT NAME: ANGELICA ROY ADMIT DATE:02/15/2022DMISSION DATE: 02/15/2022 06:00:00 BOX PRINTING MACHINE OPERATOR: Rut Jimenez MD REASON FOR ADMISSION: Symptomatic peripheral arterial disease, for peripheralangiograms and possible revascularization. HISTORY OF PRESENT ILLNESS: Angelica is a 76-year-old lady with knownatherosclerotic cardiovascular disease, who was referred to me for evaluation ofsymptomatic peripheral arterial disease bilaterally. [...] disease and has had a stent in [employer] coronary artery back on 02/23/2018. The details [...] taking aspirin 81 mg daily, inhalers, Linzess, tsuyhobzbrfj70 mg daily, albuterol, clopidogrel 75 mg daily, rest of the medications areenclosed including pantoprazole 40 mg daily. PATIENT NAME: ANGELICA ROY SOCIAL HISTORY: The patient is an active [...] MD Date Dictated: 02/14/2022 07:04:28Date Transcribed: 02/14/2022 07:24:39SD/Livia #: [id number] ID: [id number] and Edited by Rut Jimenez MD On 02/14/22 1:54:09 PM at 0157 PATIENT NAME: ANGELICA ROY and physical xdeyazytzgs1689-08-58J65:24:00Z.HIM20 689357-9802UPThxkzqunw for patient vlwaBIQUIGHASSXSJP4779-24-09X61:58:40 [facility]
[2023-11-23 10:11] LABS: Absolute Lymphocytes (CBC) 0.9 K/uL (0.7-4.9); Absolute Neutrophil 10.4 K/uL (1.8-8.0); Basophils % 0.4 % (0-1.3); Eosinophils % 0.2 % (0-4.4); Hematocrit 41.6 % (36.0-45.0); Lymphocytes % 7.2 % (15.3-44.8); MCH 28.5 pg (27.0-35.0); MCHC 31.2 g/dL (32.0-36.0); MCV 91.4 fL (80-100); MPV 8.9 fL (7.6-11.3); Monocytes % 8.3 % (3.3-12.3); Neutrophils % 83.9 % (41.7-73.7); Platelets 288 thou/uL (152-406); RBC Red Blood Cell Count 4.55 M/uL (3.86-4.86)
[2023-11-23] MEDS ORDERED: NA CHLORIDE 0.9% 1,000 ML ONE ×2 (10:15→15:05)
[2023-11-23 10:20] LABS: PT Prothrombin Time 12.2 SECONDS (9.4-12.5); PTT, Activated Partial Thromb 31.5 SECONDS (24.3-36.9); Protime INR 1.09
[2023-11-23 10:30] LABS: Albumin 2.1 g/dL (3.4-5.0); Albumin/Globulin Ratio 0.6 (1.1-1.8); Anion Gap 6.6 mEq/L (5.0-15.0); Bilirubin Total 0.5 mg/dL (0.2-1.0); Globulin 3.8 g/dL (2.3-3.5); Potassium 3.6 mEq/L (3.5-5.1); Protein, Total 5.9 g/dL (6.4-8.2); Troponin High Sensitivity 6.7 pg/mL (<58.9)
--- NOTE | 2023-11-23 10:31 | RAD REPORT ---
EXAM DESCRIPTION: RADChest Single View11/23/2023 10:22 am CLINICAL HISTORY: CHEST PAIN COMPARISON: Chest Single View dated 11/12/2023; C Spine Wo Con dated 02/25/2022 TECHNIQUE: Portable AP view of the chest. FINDINGS: Re- demonstration of a left upper lobe 4.6 cm mass. No new focal airspace opacities. No p neumothorax or effusion. The cardiomediastinal contours are unremarkable. IMPRESSION: Re- demonstration of a left upper lobe 4.6 cm mass. Malignancy should be considered. No new focal airspace opacities.
[2023-11-23 10:33] LABS: SARS-CoV-2 Antigen CONTROL BLUE LINE VIS/BG OK; SARS-CoV-2 Antigen Rapid Res Negative (Negative)
[2023-11-23 11:15] LABS: Specific Gravity 1.023 (1.005-1.030); Sqamous Epithelial <5 /HPF (None Seen); Transitional Epithelial <5 /HPF (None Seen); Urine Bacteria None Seen /HPF (<20); Urine Bilirubin NEGATIVE (Negative); Urine Blood Negative (Negative); Urine Clarity Extremely Turbid (Clear); Urine Color Yellow (Yellow); Urine Culture Reflex Order NOT NEEDED; Urine Glucose NEGATIVE (Negative); Urine Granular Casts >20 /LPF (None Seen); Urine Ketones NEGATIVE (Negative); Urine Microscopic Reflex YN ORDER UMIC; Urine Mucus 2+ /HPF (None Seen); Urine Nitrite NEGATIVE (Negative); Urine Protein 1+ (Negative); Urine RBC <5 /HPF (None Seen); Urine Urobilinogen Normal (Normal); Urine WBC <5 /HPF (<5); Urine pH 5.5 (5.0-7.0)
--- NOTE | 2023-11-23 12:22 | RAD REPORT ---
EXAM DESCRIPTION: CT - Chest Abd Pelvis Wo Con - 11/23/2023 11:33 am CLINICAL HISTORY: weakness,dysuria COMPARISON: Chest Single View dated 11/23/2023 TECHNIQUE: Thin axial CT images of the chest, abdomen, and pelvis, performed without IV contrast. Mu ltiplanar reformats were generated and reviewed. All CT scans are performed using dose optimization technique as appropriate and may include automated exposure control or mA/KV adjustment according to patient size. FINDINGS: A lobulated left central upper lobe 4.7 x 3.7 cm mass is present, correlating to the radio graphic finding. A smaller left upper lobe nodule is seen more anteriorly measuring 7 mm on axial red ge 20/136. A medial right upper lobe subpleural 7 mm nodule is also noted. A calcified peripheral lef t upper lobe 6 mm granuloma is present. No pleural or pericardial effusion. No pneumothorax. Numerous enlarged mediastinal lymph nodes, largest in the AP window measuring 1.6 cm in short axis. Smaller n odes present in the prevascular space as well, largest measuring 1.3 cm. The liver shows nodular contour, with numerous ill-defined hypoattenuating lesions, more abundant in the left lobe, the largest measures 3.8 cm. Spleen, pancreas, adrenal glands and kidneys are within n ormal limits. No bowel obstruction, free air, free fluid or abscess. Normal appendix. No pathologic lymphadenopath y in the abdomen or pelvis. Urinary bladder is decompressed limiting evaluation, with Mcdonald catheter in place. Lytic lesion involving the right aspect of L3 vertebral body, with extension to the pedicle, and extr aosseous extension, with soft tissue component likely extending into the retroperitoneum and/or right psoas muscle. There is a pathologic right L3 vertebral body fracture, with moderate degree of verteb ral body height loss. A lateral left breast mass is noted inferiorly within the breast measuring 4.5 x 3.3 cm. Soft tissue deposits present in the right flank, see axial image 72/136, largest present posterolaterally measuri ng 1.6 cm. IMPRESSION: Lobulated large left breast mass, measuring up to 4.5 cm concerning for malignancy. Left lung mass and other smaller nodules in the left upper lobe, mediastinal adenopathy, numerous hypoatt enuating hepatic lesions, and right flank soft tissue deposits, concerning for metastatic disease. A lytic lesion involving right L3 vertebral body is also concerning for osseous metastatic disease. T he lesion demonstrates extraosseous extension and results in a pathologic fracture with moderate L3 v ertebral body height loss.
--- NOTE | 2023-11-23 12:40 | ER ---
Nurse's Notes [facility] Name: Angelica Carreno Age: 78 yrs Sex: Female : 1945 Arrival Date: 11/23/2023 Time: 09:38 Bed 13 Private MD: Diagnosis: Weakness;Adult failure to thrive Presentation: 11/22 09:42 Chief complaint: EMS states: Daughter toned out EMS for generalized weakness, rs5 incontinence, and pain with urination. Coronavirus screen: At this time, the client does not indicate any symptoms associated with coronavirus-19. Ebola Screen: No symptoms or risks identified at this time. Initial Sepsis Screen: Does the patient meet any 2 criteria? HR > 90 bpm. Yes Does the patient have a suspected source of infection? No. Patient's initial sepsis screen is negative. Risk Assessment: Do you want to hurt yourself or someone else? Patient reports no desire to harm self or others. Onset of symptoms was November 23, 2023. Care prior to arrival: IV initiated. 20 GA, in the left antecubital area. 09:42 Method Of Arrival: EMS: [facility] rs5 09:42 Acuity: SEAN 3 rs5 Historical: - Allergies: 09:44 Iodine; rs5 - PMHx: 09:44 Chronic obstructive lung disease; rs5 - PSHx: 09:44 knee; hernia; Total abdominal hysterectomy; rs5 - Immunization history:: Adult Immunizations up to date. - Infectious Disease History:: Denies. - Social history:: Smoking status: Patient denies any tobacco usage or history of. Screenin:41 [facility] ED Fall Risk Assessment (Adult) History of falling in the last 3 months, rs5 including since admission No falls in past 3 months (0 pts) Confusion or Disorientation No (0 pts) Intoxicated or Sedated No (0 pts) Impaired Gait Yes (1 pt) Mobility Assist Device Used No (0 pt) Altered Elimination No (0 pt) Score/Fall Risk Level 0 - 2 = Low Risk Oriented to surroundings, Maintained a safe environment. Abuse screen: Denies threats or abuse. Nutritional screening: No deficits noted. Tuberculosis screening: No symptoms or risk factors identified. Assessment: 09:41 General: Appears in no apparent distress. uncomfortable, Behavior is calm, cooperative. rs5 Pain: Denies pain. Neuro: Level of Consciousness is awake, alert, obeys commands, Oriented to person, place, time, situation. Cardiovascular: Patient's skin is warm and dry. Respiratory: Airway is patent Respiratory effort is even, unlabored, Respiratory pattern is regular, symmetrical. GI: Abdomen is round non-distended, Abd is soft and non tender X 4 quads. : No signs and/or symptoms were reported regarding the genitourinary system. EENT: No signs and/or symptoms were reported regarding the EENT system. Derm: Skin is intact, Skin is pink, warm \T\ dry. Musculoskeletal: Range of motion: intact in all extremities, Reports generalized weakness. 10:55 Reassessment: Patient and/or family updated on plan of care and expected duration. Pain rs5 level reassessed. Patient is alert, oriented x 3, equal unlabored respirations, skin warm/dry/pink. 12:01 Reassessment: No changes from previously documented assessment. rs5 13:10 Reassessment: Patient and/or family updated on plan of care and expected duration. Pain rs5 level reassessed. Patient is alert, oriented x 3, equal unlabored respirations, skin warm/dry/pink. Vital Signs: 09:42 BP 142 / 73; Pulse 110; Resp 17; Temp 97.8(O); Pulse Ox 97% ; rs5 11:36 BP 143 / 74; Pulse 95; Resp 17; Pulse Ox 98% on R/A; rs5 13:10 BP 132 / 77; Pulse 94; Resp 17; Pulse Ox 96% on R/A; rs5 19:22 BP 123 / 66; Pulse 66; Resp 16; Pulse Ox 96% on R/A; al5 ED Course: 09:40 Patient arrived in ED. sb4 09:40 Ese Ervin PA-C is PHCP. sb4 09:40 Haris Tuttle MD is Attending Physician. sb4 09:41 Patient has correct armband on for positive identification. Placed in gown. Bed in low rs5 position. Call light in reach. Side rails up X2. 09:41 No provider procedures requiring assistance completed. rs5 09:42 Ant Arias, KEYANA is Primary Nurse. rs5 09:43 Triage completed. rs5 10:24 Chest Single View XRAY In Process Unspecified. EDMS 11:33 CT Chest Abdomen Pelvis W/O Contrast In Process Unspecified. EDMS 12:40 Dora Henley MD is Hospitalizing Provider. sb4 13:00 Patient admitted, IV remains in place. rs5 Administered Medications: 10:22 Drug: NS 0.9% IV 1000 ml IV at 1 bolus Per protocol; 1000 mL bolus Route: IV; Rate: 1 rs5 bolus; Site: left antecubital; Medication: 10:43 VIS not applicable for this client. rs5 Outcome: 12:40 Decision to Hospitalize by Provider. sb4 13:00 Admitted to ER Hold. Please see [facility] for further documentation. rs5 13:00 Condition: stable rs5 13:00 Discharge instructions given to patient, Instructed on the need for admit, Demonstrated understanding of instructions, 19:49 Patient left the ED. jb4 Signatures: Dispatcher [employer] EDMS Chuck Hu RN RN jb4 Ese Ervin PALien PAViktoriyaC sb4 Ant Arias RN RN rs5 Annie Whalen RN RN al5
--- NOTE | 2023-11-23 12:40 | EDPHYS ---
Physician Documentation [facility] Name: Angelica Carreno Age: 78 yrs Sex: Female : 1945 Arrival Date: 11/23/2023 Time: 09:38 Bed 13 Private MD: ED Physician Haris Tuttle HPI: 11/22 09:52 This 78 yrs old Female presents to ER via EMS with complaints of malaise. sb4 09:57 patient states that she has been fighting an UTI for a few week now despite being on sb4 antibiotics. she called EMS today complaining of diffuse body pain and weakness. she states she has not urinated in 24 hours but was incontinent with EMS. denies any shortness of breath, known fever, or chills. Historical: - Allergies: 09:44 Iodine; rs5 - PMHx: 09:44 Chronic obstructive lung disease; rs5 - PSHx: 09:44 knee; hernia; Total abdominal hysterectomy; rs5 - Immunization history:: Adult Immunizations up to date. - Infectious Disease History:: Denies. - Social history:: Smoking status: Patient denies any tobacco usage or history of. ROS: 09:57 Cardiovascular: Negative for chest pain, palpitations, and edema, sb4 09:57 Constitutional: Positive for body aches, fatigue, malaise, 09:57 : Positive for urinary symptoms, bladder incontinence 09:57 All other systems are negative, Exam: 09:59 Head/Face: Normocephalic, atraumatic. Eyes: Extra-ocular motions intact. Periorbital sb4 areas with no swelling, redness, or edema. ENT: Mucous membranes moist. Cardiovascular: Regular rate and rhythm with a normal S1 and S2. Respiratory: Lungs have equal breath sounds bilaterally, clear to auscultation and percussion. No rales, rhonchi or wheezes noted. No increased work of breathing, no retractions or nasal flaring. Abdomen/GI: Soft, non-tender, no distension. Skin: Warm, dry with normal turgor. Normal color with no rashes, no lesions, and no evidence of cellulitis. MS/ Extremity: Pulses equal, no cyanosis. Neurovascular intact. Full, normal range of motion. 09:59 Constitutional: The patient appears in no acute distress, alert, awake, frail, Vital Signs: 09:42 BP 142 / 73; Pulse 110; Resp 17; Temp 97.8(O); Pulse Ox 97% ; rs5 11:36 BP 143 / 74; Pulse 95; Resp 17; Pulse Ox 98% on R/A; rs5 13:10 BP 132 / 77; Pulse 94; Resp 17; Pulse Ox 96% on R/A; rs5 19:22 BP 123 / 66; Pulse 66; Resp 16; Pulse Ox 96% on R/A; al5 MDM: 09:40 Patient medically screened. sb4 12:39 Data reviewed: vital signs, nurses notes, EMS record, lab test result(s), EKG, sb4 radiologic studies, I have discussed the patient's presentation/case with the attending Emergency Department Physician; and as a result, I will admit patient. Consideration of Admission/Observation Patient was admitted/placed on observation. Care significantly affected by the following chronic conditions: Chronic Obstructive Pulmonary Disease, Cancer. Counseling: I had a detailed discussion with the patient and/or guardian regarding the historical points, exam findings, and any diagnostic results supporting the discharge/admit diagnosis, the presence of at least one elevated blood pressure reading (>120/80) during this emergency department visit, lab results, radiology results, the need for further work-up and treatment in the hospital. 11/22 09:41 Order name: Blood Culture Adult (2) 4 11/22 09:41 Order name: CBC with Diff; Complete Time: 10:15 sb4 11/22 09:41 Order name: CMP; Complete Time: 10:31 4 11/22 09:41 Order name: Lactate w/ 2H reflex if indic.; Complete Time: 10:32 11/22 09:41 Order name: Protime (+inr); Complete Time: 10:20 sb4 11/22 09:41 Order name: Ptt, Activated; Complete Time: 10:20 4 11/22 09:41 Order name: Urinalysis w/ reflexes; Complete Time: 11:15 4 11/22 09:41 Order name: Troponin High Sensitivity; Complete Time: 10:31 sb4 11/22 09:41 Order name: SARS RAPID; Complete Time: 10:34 sb4 11/22 13:16 Order name: CBC with Automated Diff EDMS 11/22 13:16 Order name: CBC with Automated Diff EDPA 11/22 13:16 Order name: Comprehensive Metabolic Panel EDPA 11/22 13:16 Order name: Comprehensive Metabolic Panel [facility] 11/22 09:41 Order name: Chest Single View XRAY; Complete Time: 10:31 sb4 11/22 11:16 Order name: CT Chest Abdomen Pelvis W/O Contrast; Complete Time: 12:26 sb4 11/22 13:12 Order name: Social Service Consult EDPA 11/22 09:41 Order name: Accucheck; Complete Time: 10:13 sb4 11/22 09:41 Order name: Cardiac monitoring; Complete Time: 10:13 sb4 11/22 09:41 Order name: EKG - Nurse/Tech; Complete Time: 10:13 sb4 11/22 09:41 Order name: IV Saline Lock - Large Bore; Complete Time: 10:13 sb4 11/22 09:41 Order name: Labs collected and sent; Complete Time: 10:13 sb4 11/22 09:41 Order name: O2 Per Protocol; Complete Time: 10:13 sb4 11/22 09:41 Order name: O2 Sat Monitoring; Complete Time: 10:13 sb4 11/22 09:41 Order name: Vital Signs; Complete Time: 10:13 sb4 EC:13 Rate is 103 beats/min. Rhythm is regular, Sinus tachycardia with PACs. OK interval is sb4 normal at 114 msec. QRS interval is normal at 80 msec. QT interval is normal at 342 msec. No Q waves. T waves are Normal. Clinical impression: Sinus tachycardia. Interpreted by me. Reviewed by me. Administered Medications: 10:22 Drug: NS 0.9% IV 1000 ml IV at 1 bolus Per protocol; 1000 mL bolus Route: IV; Rate: 1 rs5 bolus; Site: left antecubital; Disposition: 20:13 Co-signature as Attending Physician, Haris Tuttle MD I reviewed the patient's care rn provided by the Advanced Practice Provider and agree with the diagnosis and treatment plan. Disposition Summary: 11/23/23 12:40 Hospitalization Ordered Notes: Hospitalization Status: Inpatient Admission sb4 Provider: Dora Henley sb4 Condition: Fair sb4 Problem: new sb4 Symptoms: are unchanged sb4 Bed/Room Type: Standard sb4 Location: Telemetry/MedSurg (Inpatient)(11/23/23 18:04) bd Room Assignment: 208(11/23/23 19:14) rv1 Diagnosis - Weakness sb4 - Adult failure to thrive sb4 Forms: - Medication Reconciliation Form sb4 - SBAR form sb4 - Leadership Thank You Letter sb4 Signatures: Dispatcher [employer] EDMS Miranda ryan Haris Linder MD MD rn Bradberry, Kelly, RN RN kb3 Ese Ervin PAViktoriyaC PAViktoriyaC sb4 NormanLeslie clarke rv1 Ant Arias RN RN rs5 Corrections: (The following items were deleted from the chart) 09:42 09:42 BLOOD CULTURE*+BA.LAB.BRZ ordered. EDMS EDMS 09:42 09:42 CBC+H.LAB.BRZ ordered. EDMS EDMS 09:42 09:42 COMPREHENSIVE METABOLIC PANEL+C.LAB.BRZ ordered. EDMS EDMS 09:42 09:42 LACTATE+C.LAB.BRZ ordered. EDMS EDMS 09:42 09:42 PROTIME (+INR)+COAG.LAB.BRZ ordered. EDMS EDMS 09:42 09:42 PTT, ACTIVATED+COAG.LAB.BRZ ordered. EDMS EDMS 09:42 09:42 Urinalysis+U.LAB.BRZ ordered. EDMS EDMS 09:42 09:42 Troponin High Sensitivity+C.LAB.BRZ ordered. EDMS EDMS 09:42 09:42 SARS-COV-2 Antigen Rapid+I.LAB.BRZ ordered. EDMS EDMS 09:42 09:42 Chest Single View+RAD.RAD.BRZ ordered. EDMS EDMS 14:20 12:40 Telemetry/MedSurg (Inpatient) sb4 kb3 14:20 12:40 sb4 kb3 18:04 14:20 [facility] ER HOLD kb3 bd 18:04 14:20 ERHOLD- kb3 bd 19:14 18:04 202 bd rv1
--- NOTE | 2023-11-23 12:56 | P.SSS ---
Patient History Date of Service: 11/23/23 Primary Care Provider: Jerman Leung Reason for admission: Metastatic cancer with inability to ambulate - Past Medical/Surgical History Psychosocial/ Personal History: Known metastatic cancer, would like hospice, [facility] Physical Examination - Studies Laboratory Data (last 24 hrs) 11/23/23 11/23/23 11/23/23 09:55 09:55 09:55 WBC 12.40 H Hgb 13.0 Hct 41.6 Plt Count 288 PT 12.2 INR 1.09 APTT 31.5 Sodium 142 Potassium 3.6 BUN 27 H Creatinine 0.80 Glucose 111 H Total Bilirubin 0.5 AST 59 H ALT 18 Alkaline Phosphatase 145 H - Disposition Disposition: ROUTINE DISCHARGE Followup: NONE,NONE [Primary Care Provider] - Prvt As Needed
--- NOTE | 2023-11-23 13:06 | P.HP ---
Certification for Inpatient Patient admitted to: Inpatient With expected LOS: >2 Midnights Patient will require the following post-hospital care: Hospice Practitioner: I am a practitioner with admitting privileges, knowledge of patient current condition, hospital course, and medical plan of care. Services: Services provided to patient in accordance with Admission requirements found in Title 42 Section 412.3 of the Code of Federal Regulations Patient History Date of Service: 11/23/23 Reason for admission: Metastatic cancer with inability to ambulate History of Present Illness: Patient is a 78-year-old female who presents to the emergency room with inability to get out of bed. Patient was diagnosed with a breast mass and a lung mass with evidence of metastasis. She went to see her production laborer, Dr. May, and after a long discussion with him she decided against getting any kind of treatment. In light of the fact that she did not want any treatment, he decided to pursue follow-ups with follow-up imaging. Patient saw him last week but at that time she had to have the daughter pick her out of bed and put her in a wheelchair. This was extremely painful for the patient. Patient was notified at that time that there was evidence of metastatic disease. The family did not want to proceed with hospice because they had a family member who they felt was given large amount of pain medications under hospice care. However, currently they have been speaking with [facility] regarding placement. Patient is unable to ambulate at this time and she is very cachectic and emaciated. She is unlikely to survive over the next 30 days. At this time, the daughter is not able to care for her at the house so they are wanting her to try to get into a nursing facility where they can proceed with hospice care. Patient will be admitted to the hospital under palliative care at this time and will treat her with comfort measures. - Past Medical/Surgical History -: COPD -: Breast mass -: Lung mass Past Surgical History: Reviewed- Non-Contributory Psychosocial/ Personal History: Known metastatic cancer, would like hospice, comfort care - Family History Father Family History: Reviewed- Non-Contributory - Social History Smoking Status: Former smoker Alcohol use: No CD- Drugs: No Review of Systems 10-point ROS is otherwise unremarkable Physical Examination - Vital Signs Temperature: 98 F Blood Pressure: 110/70 Pulse: 80 Respirations: 18 Pulse Ox (%): 95 - Physical Exam General: Alert, Oriented x3, Cooperative, Cachectic, Other (Emaciated) HEENT: Atraumatic, Normocephalic Neck: JVD not distended, No Thyromegaly Respiratory: Diminished, Expiratory wheezes Cardiovascular: Regular rate/rhythm, Normal S1 S2 Gastrointestinal: Normal bowel sounds, Soft and benign, Non-distended Musculoskeletal: No clubbing, Swelling Neurological: Sensation intact, Cranial nerves 3-12 intact, Abnormal gait, Abnormal strength Lymphatics: Axilla lymphadenopathy - Studies Laboratory Data (last 24 hrs) 11/23/23 11/23/23 11/23/23 09:55 09:55 09:55 WBC 12.40 H Hgb 13.0 Hct 41.6 Plt Count 288 PT 12.2 INR 1.09 APTT 31.5 Sodium 142 Potassium 3.6 BUN 27 H Creatinine 0.80 Glucose 111 H Total Bilirubin 0.5 AST 59 H ALT 18 Alkaline Phosphatase 145 H Assessment & Plan - Problems (Diagnosis) (1) Breast cancer metastasized to multiple sites Current Visit: Yes Status: Acute (2) Palliative care patient Current Visit: Yes Status: Acute - Plan Plan: 1. Breast cancer with metastasic disease. Patient is nonambulatory. She will need to be admitted to the hospital as she is unable to get out of bed or move any longer because of metastasis to the spine. Patient does not want to proceed with any further aggressive treatment. She wants comfort measures. Will go ahead and place her on a fentanyl patch. He does not want to be overly sedated. Will give her some anxiolytics as needed. Her long-term prognosis is poor. Will get medical social worker to set up hospice care. Patient wants to go to [facility]. Discharge Plan: Other Plan to discharge in: Greater than 2 days - Advance Directives Does patient have a Living Will: No Does patient have a Durable POA for Healthcare: No - Code Status/Comfort Care Code Status Assessed: Yes Code Status: Do Not Attempt Resuscitat Comfort Measures: Palliative Care Critical Care: No Time Spent Managing PTS Care (In Minutes): 45
[2023-11-23] MEDS ORDERED: ALPRAZOLAM 0.25 MG TABLET PO PRN (13:11)
[2023-11-23] MEDS ORDERED: ONDANSETRON 4 MG/2 ML VIAL IV PRN (13:11)
[2023-11-23] MEDS: FENTANYL 25 MCG/PATCH TD SCH ×2 (13:30→14:00)
[2023-11-23] MEDS: FUROSEMIDE 20 MG/ 2ML VIAL IV SCH (14:00)
[2023-11-23] MEDS: NA CHLORIDE 0.9% 1,000 ML IV SCH (14:00)
[2023-11-23] MEDS ORDERED: FUROSEMIDE 20 MG/ 2ML VIAL ONE (15:05)
[2023-11-23] MEDS: PNEUMOCOCCAL VACCINE 0.5 ML IMVAC ONE (18:00)
[2023-11-23 22:04] VITALS: BMI 19.7
[2023-11-24 06:05] LABS: Absolute Lymphocytes (CBC) 0.7 K/uL (0.7-4.9); Absolute Monocytes 1.2 K/uL (0.1-1.3); Absolute Neutrophil 10.1 K/uL (1.8-8.0); Basophils % 0.2 % (0-1.3); Eosinophils % 0.1 % (0-4.4); Hematocrit 39.4 % (36.0-45.0); Hemoglobin 12.6 g/dL (12.0-15.0); Lymphocytes % 5.6 % (15.3-44.8); MCHC 31.9 g/dL (32.0-36.0); MPV 9.1 fL (7.6-11.3); Monocytes % 9.7 % (3.3-12.3); Neutrophils % 84.4 % (41.7-73.7); Platelets 254 thou/uL (152-406); RBC Red Blood Cell Count 4.33 M/uL (3.86-4.86); Red Cell Distribution Width 15.7 % (12.1-15.2)
[2023-11-24 06:35] LABS: ALT/SGPT < 14 U/L (13-56); AST/SGOT 55 U/L (15-37); Albumin/Globulin Ratio 0.6 (1.1-1.8); Alkaline Phosphatase 126 U/L (45-117); Anion Gap 7.1 mEq/L (5.0-15.0); BUN Blood Urea Nitrogen 20 mg/dL (7-18); Bicarbonate 35 mEq/L (21-32); Bilirubin Total 0.6 mg/dL (0.2-1.0); Globulin 3.6 g/dL (2.3-3.5); Glomerular Filtration Rate 91 ml/min (=/>90); Glucose Level 79 mg/dL (74-106); Potassium 3.1 mEq/L (3.5-5.1); Protein, Total 5.6 g/dL (6.4-8.2); Sodium Level 142 mEq/L (136-145)
[2023-11-24] MEDS: FENTANYL CITR 100 MCG/2 ML IV PRN (08:21)
--- NOTE | 2023-11-24 09:32 | P.PN ---
Subjective Date of Service: 11/24/23 Chief Complaint: Metastatic cancer with inability to ambulate Subjective: No new changes (Pt c/o pain in torso. Was getting Fentanyl 12.5mcg IV q 4h prn, increased to 25mcg patch) <Yasmin Lester - Last Filed: 11/24/23 09:29> Date of Service: 11/24/23 <Sergio Ha Brad - Last Filed: 11/24/23 11:57> Review of Systems 10-point ROS is otherwise unremarkable Musculoskeletal: Other (pain in sides) Neurological: Weakness, As per HPI <Yasmin Lester - Last Filed: 11/24/23 09:29> Physical Examination - Vital Signs Temperature: 98.4 F Blood Pressure: 138/65 Pulse: 112 Respirations: 18 Pulse Ox (%): 96 - Physical Exam General: Alert, Oriented x3, Cachectic HEENT: Atraumatic, Normocephalic Neck: Supple Respiratory: Normal air movement Cardiovascular: Normal pulses, Irregular heart rate/rhythm Capillary refill: <2 Seconds Gastrointestinal: Soft and benign Musculoskeletal: Other (tenderness to torso) Integumentary: No rashes Neurological: Normal speech, Normal affect Lymphatics: No axilla or inguinal lymphadenopathy External genitalia: Deferred Rectal: Deferred - Studies Laboratory Data (last 24 hrs) 11/23/23 11/23/23 11/23/23 09:55 09:55 09:55 WBC 12.40 H Hgb 13.0 Hct 41.6 Plt Count 288 PT 12.2 INR 1.09 APTT 31.5 Sodium 142 Potassium 3.6 BUN 27 H Creatinine 0.80 Glucose 111 H Total Bilirubin 0.5 AST 59 H ALT 18 Alkaline Phosphatase 145 H <Yasmin Lester - Last Filed: 11/24/23 09:29> Assessment And Plan - Plan Problems (Diagnosis) (1) Breast cancer metastasized to multiple sites Current Visit: Yes Status: Acute (2) Palliative care patient Current Visit: Yes Status: Acute - Plan Plan: 1. Breast cancer with metastasic disease. Patient is nonambulatory. She will need to be admitted to the hospital as she is unable to get out of bed or move any longer because of metastasis to the spine. Patient does not want to proceed with any further aggressive treatment. She wants comfort measures. Will go ahead and place her on a fentanyl patch. He does not want to be overly sedated. Will give her some anxiolytics as needed. Her long-term prognosis is poor. Will get social and human services assistant to set up hospice care. Patient wants to go to [facility]. Discharge Plan: Other Plan to discharge in: Greater than 2 days - Advance Directives Does patient have a Living Will: No Does patient have a Durable POA for Healthcare: No - Code Status/Comfort Care Code Status Assessed: Yes Code Status: Do Not Attempt Resuscitat Comfort Measures: Palliative Care Critical Care: No <Yasmin Lester - Last Filed: 11/24/23 09:29> - Plan Pt seen and examined. I agree with the note by the WASTE/MATERIALS EXCHANGE SPECIALIST. She does not want any further treatment. Now on palliative care. Continue prn anxiolytic and fentanyl patch. <Sergio Ha - Last Filed: 11/24/23 11:57>
[2023-11-24] MEDS: FENTANYL 25 MCG/PATCH TD SCH (09:48)
[2023-11-24] MEDS: HYDROMORPHONE HCL 2 MG/ML inj IV ONE (13:38)
[2023-11-24] MEDS: SIMETHICONE 80 MG CHEWABLE TAB PO ONE (13:42)
[2023-11-24] MEDS: ACETAMINOPHEN 325 MG TABLET PO ONE (22:21)
[2023-11-24 22:38] VITALS: O2SAT 91
[2023-11-25] MEDS: POTASSIUM CL SA 10 MEQ TAB PO SCH (07:59)
[2023-11-25] MEDS: HYDROMORPHONE HCL 2 MG/ML inj IV PRN ×2 (09:35→15:37)
--- NOTE | 2023-11-25 10:55 | P.PN ---
Date of Service: 11/25/23 Subjective Date of Service: 11/24/23 Chief Complaint: Metastatic cancer with inability to ambulate Subjective: No new changes (Pt c/o pain in torso. Was getting Fentanyl 12.5mcg IV q 4h prn, increased to 25mcg patch), added prn Dilaudid 0.5mg Date of Service: 11/25/23 Review of Systems 10-point ROS is otherwise unremarkable Musculoskeletal: Other (pain in sides) Neurological: Weakness, As per HPI Physical Examination - Vital Signs reviewed - Physical Exam General: Alert, Oriented x3, Cachectic HEENT: Atraumatic, Normocephalic Neck: Supple Respiratory: Normal air movement Cardiovascular: Normal pulses, Irregular heart rate/rhythm Capillary refill: <2 Seconds Gastrointestinal: Soft and benign Musculoskeletal: Other (tenderness to torso) Integumentary: No rashes Neurological: Normal speech, Normal affect Lymphatics: No axilla or inguinal lymphadenopathy External genitalia: Deferred Rectal: Deferred - Studies Laboratory Data (last 24 hrs) 11/23/23 11/23/23 11/23/23 09:55 09:55 09:55 WBC 12.40 H Hgb 13.0 Hct 41.6 Plt Count 288 PT 12.2 INR 1.09 APTT 31.5 Sodium 142 Potassium 3.6 BUN 27 H Creatinine 0.80 Glucose 111 H Total Bilirubin 0.5 AST 59 H ALT 18 Alkaline Phosphatase 145 H Assessment And Plan - Plan Problems (Diagnosis) (1) Breast cancer metastasized to multiple sites Current Visit: Yes Status: Acute (2) Palliative care patient Current Visit: Yes Status: Acute - Plan Plan: 1. Breast cancer with metastasic disease. Patient is nonambulatory. She will need to be admitted to the hospital as she is unable to get out of bed or move any longer because of metastasis to the spine. Patient does not want to proceed with any further aggressive treatment. She wants comfort measures. Will go ahead and place her on a fentanyl patch. He does not want to be overly sedated. Will give her some anxiolytics as needed. Her long-term prognosis is poor. Will get secondary social studies teacher to set up hospice care. Patient wants to go to [facility]. Discharge Plan: Other Plan to discharge in: Greater than 2 days - Advance Directives Does patient have a Living Will: No Does patient have a Durable POA for Healthcare: No - Code Status/Comfort Care Code Status Assessed: Yes Code Status: Do Not Attempt Resuscitat Comfort Measures: Palliative Care Critical Care: No <Yasmin Lester - Last Filed: 11/25/23 10:56> Pt seen and examined. I agree with the note by the BLOOD BANK TECHNICIAN. Pt wants comfort care. <Sergio Ha - Last Filed: 11/25/23 22:20>
--- NOTE | 2023-11-25 11:50 | EKG ---
Test Date: 2023-11-23 Test Time: 10:07:43 Cabin Agent: GALE MEASUREMENT RESULTS: Intervals: Rate: 103 OH: 114 QRSD: 80 QT: 342 QTc: 448 Colby: P: 82 OH: 114 QRS: 78 T: 86 INTERPRETIVE STATEMENTS: Sinus tachycardia with premature atrial complexes Possible Left atrial enlargement Low voltage QRS Borderline ECG Compared to ECG 11/12/2023 15:19:12 Atrial premature complex(es) now present Sinus rhythm no longer present Electronically Signed On 11-25-23 11:47:36 CDT by Claude Lora
[2023-11-25 16:24] VITALS: BP 138/70; TEMP 98.1
== END 2023-11-25 17:05 | disposition hospice, inpatient (51) | DRG 641 ==
LOC: ER 09:38 → ERHOLD 13:11 → 2ND 18:12
PROVIDERS: ADMIT Hospitalist; ATTEND Hospitalist
DX: R62.7 Adult failure to thrive (principal); Z68.1 Body mass index [BMI] 19.9 or less, adult; R64 Cachexia; C79.51 Secondary malignant neoplasm of bone; J44.9 Chronic obstructive pulmonary disease, unspecified; C50.919 Malignant neoplasm of unspecified site of unspecified female breast; Z66 Do not resuscitate; Z51.5 Encounter for palliative care; Z11.52 Encounter for screening for COVID-19; Z87.891 Personal history of nicotine dependence; Z90.710 Acquired absence of both cervix and uterus; Z91.048 Other nonmedicinal substance allergy status
CPT/HCPCS: 36415; 71045; 71250; 74176; 80053; 81001; 83605; 83735; 84484; 85025; 85610; 85730; 87040; 87811; 93005; 99285; J1170; J1940; J3010; J7030